=== PATIENT | male | born 1940 | race Caucasian/White ===

== ENCOUNTER 2021-01-02 10:22 | Inpatient (IN) | payer MEDICARE ==
[2021-01-02] MEDS ORDERED: KETOROLAC 15 MG/ML 1 ML VIAL IVP STA (10:54)
[2021-01-02] MEDS ORDERED: SODIUM CHLORIDE 0.9% 500 ML 500 ML IV STA (10:54)
--- NOTE | 2021-01-02 11:04 | ED ---
Abdominal Pain HPI - General Chief Complaint: Abdominal Pain Stated Complaint: Abdominal pain Time Seen by Provider: 01/02/21 10:36 Source: patient Mode of arrival: ambulatory Limitations: no limitations - History of Present Illness Initial Comments: Patient is an 80-year-old male, with history of heart disease, presenting to the emergency Department with complaints of abdominal pain for the last 4 days. Patient states he thinks it started after he ate a greasy better on Wednesday. Patient states ever since then he's been having right upper quadrant, epigastric discomfort. It has been coming and going but has not ever gone completely away. He states is very sharp at times. He states this morning it woke him up from his sleep. He describes the pain currently is an 8/10, and the right upper quadrant epigastric area. He states sometimes he does have some radiation further down into his abdomen but mostly been in the right upper quadrant. He denies history of any abdominal surgeries. He admits to some mild nausea the first day but none since then, no vomiting or diarrhea. He does have darker stools secondary to iron supplements, he's been having regular bowel movements. No dysuria. He denies any chest pain or shortness of breath, no coughing. He denies any fevers. He has no further complaints at this time. Upon arrival to the ER, his vitals are stable. - Related Data Home Medications Medication Instructions Recorded Confirmed Aspirin EC [Ecotrin Low Dose] 81 mg PO DAILY 01/02/21 01/02/21 Atorvastatin Calcium [Lipitor] 80 mg PO HS 01/02/21 01/02/21 Ferrous Sulfate [Feosol] 325 mg PO DAILY 01/02/21 01/02/21 Metoprolol Tartrate [Lopressor] 12.5 mg PO BID 01/02/21 01/02/21 Multivitamins, Thera [Multivitamin 1 tab PO DAILY 01/02/21 01/02/21 (formulary)] Pantoprazole Sodium [Protonix] 40 mg PO BID@1000,2200 01/02/21 01/02/21 Allergies Allergy/AdvReac Type Severity Reaction Status Date / Time No Known Allergies Allergy Verified 01/02/21 11:03 Review of Systems ROS Statement: Those systems with pertinent positive or pertinent negative responses have been documented in the HPI. ROS Other: All systems not noted in ROS Statement are negative. Past Medical History Past Medical History: Myocardial Infarction ([place]) History of Any Multi-Drug Resistant Organisms: None Reported Past Surgical History: Back Surgery, Coronary Bypass/CABG, Heart Catheterization, Heart Catheterization With Stent Past Psychological History: No Psychological Hx Reported Smoking Status: Former smoker Past Alcohol Use History: None Reported Past Drug Use History: None Reported - Past Family History Father Additional Family Medical History / Comment(s): Father by drowning when pt was 3 yrs old. Mother Family Medical History: Cancer Additional Family Medical History / Comment(s): Mother lived into her 90s. Type of cancer was "female". General Exam - General Exam Comments Initial Comments: GENERAL: Patient is well-developed and well-nourished. Patient is nontoxic and in no acute distress. HEAD: Atraumatic, normocephalic. EYES: Pupils equal round and reactive to light, extraocular movements intact, sclera anicteric, conjunctiva are normal. Eyelids were unremarkable. ENT: TMs normal, nares patent, oropharynx clear without exudates. Moist mucous membranes. NECK: Normal range of motion, supple without lymphadenopathy or JVD. LUNGS: Unlabored respirations. Breath sounds clear to auscultation bilaterally and equal. No wheezes rales or rhonchi. HEART: Regular rate and rhythm without murmurs, rubs or gallops. ABDOMEN: Soft, tender to palpation in the right upper quadrant, epigastric area, hypoactive bowel sounds. Positive guarding of the right upper quadrant, No masses appreciated. : Deferred MUSCULOSKELETAL: Normal extremities with adequate strength and normal range of motion, no pitting or edema. No clubbing or cyanosis. NEUROLOGICAL: Patient is alert and oriented x 3. Motor and sensory are also intact. Cranial nerves II through XII grossly intact. Symmetrical smile. Normal speech, normal gait. PSYCH: Normal mood, normal affect. SKIN: Warm, Dry, normal turgor, no rashes or lesions noted. Limitations: no limitations Course Vital Signs 01/02/21 01/02/21 01/02/21 10:25 11:59 12:29 Temperature 97.7 F 97.7 F Pulse Rate 60 61 63 Respiratory 18 18 18 Rate Blood Pressure 150/91 146/84 136/64 Blood Pressure [Left Arm] O2 Sat by Pulse 97 97 94 L Oximetry 01/02/21 01/02/21 01/02/21 13:35 15:00 17:00 Temperature 98.0 F 98.0 F Pulse Rate 63 58 L Respiratory 18 18 Rate Blood Pressure 160/84 172/76 Blood Pressure 185/94 [Left Arm] O2 Sat by Pulse 94 L 94 L 95 Oximetry Medical Decision Making - Medical Decision Making Patient is an 80-year-old male with history of heart disease, presenting with epigastric, right upper quadrant pain for the last 4 days. His vitals are stable, no fevers. No history of abdominal surgeries. Labs are stable with a normal white count, lactic acid is 1.1, urine had some blood in there but no signs of infection. I initially ordered an ultrasound of the gallbladder which showed multiple masses within the liver, recommend a CT of the abdomen and pelvis. No signs of acute cholecystitis. 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 Patient received some fluids and Toradol, she on reexamination, he has no pain. I discussed these findings with the patient. I did recommend admission for further investigation of this newfound neoplasm with metastases. Patient has seen Dr. caballero him in the past. Patient accepted by Dr. Carranza, consult Dr. Baptiste. Patient is in agreement with this plan of care. Case discussed with Dr. Junior. - Lab Data Result diagrams: 01/02/21 11:10 01/02/21 11:10 Lab Results 01/02/21 01/02/21 01/02/21 Range/Units 11:10 11:10 11:10 WBC 7.1 (3.8-10.6) k/uL RBC 4.87 (4.30-5.90) m/uL Hgb 14.6 (13.0-17.5) gm/dL Hct 42.6 (39.0-53.0) % MCV 87.6 (80.0-100.0) fL MCH 30.0 (25.0-35.0) pg MCHC 34.2 (31.0-37.0) g/dL RDW 13.8 (11.5-15.5) % Plt Count 169 (150-450) k/uL MPV 8.5 Neutrophils % 75 % Lymphocytes % 10 % Monocytes % 7 % Eosinophils % 6 % Basophils % 1 % Neutrophils # 5.3 (1.3-7.7) k/uL Lymphocytes # 0.7 L (1.0-4.8) k/uL Monocytes # 0.5 (0-1.0) k/uL Eosinophils # 0.4 (0-0.7) k/uL Basophils # 0.1 (0-0.2) k/uL PT 10.8 (9.0-12.0) sec INR 1.0 (<1.2) APTT 23.4 (22.0-30.0) sec Sodium 142 (137-145) mmol/L Potassium 4.3 (3.5-5.1) mmol/L Chloride 109 H (98-107) mmol/L Carbon Dioxide 25 (22-30) mmol/L Anion Gap 8 mmol/L BUN 18 (9-20) mg/dL Creatinine 1.01 (0.66-1.25) mg/dL Est GFR (CKD-EPI)AfAm 81 (>60 ml/min/1.73 sqM) Est GFR (CKD-EPI)NonAf 70 (>60 ml/min/1.73 sqM) Glucose 108 H (74-99) mg/dL Plasma Lactic Acid Mateo (0.7-2.0) mmol/L Calcium 9.5 (8.4-10.2) mg/dL Total Bilirubin 1.4 H (0.2-1.3) mg/dL AST 33 (17-59) U/L ALT 18 (4-49) U/L Alkaline Phosphatase 127 H (38-126) U/L Total Protein 7.1 (6.3-8.2) g/dL Albumin 4.1 (3.5-5.0) g/dL Amylase 53 (30-110) U/L Lipase 89 (23-300) U/L Urine Color Urine Appearance (Clear) Urine pH (5.0-8.0) Ur Specific [place] (1.001-1.035) Urine Protein (Negative) Urine Glucose (UA) (Negative) Urine Ketones (Negative) Urine Blood (Negative) Urine Nitrite (Negative) Urine Bilirubin (Negative) Urine Urobilinogen (<2.0) mg/dL Ur Leukocyte Esterase (Negative) Urine RBC (0-5) /hpf Urine WBC (0-5) /hpf Urine Bacteria (None) /hpf Urine Mucus (None) /hpf Coronavirus (PCR) (Not Detectd) 01/02/21 01/02/21 01/02/21 Range/Units 11:10 13:11 14:15 WBC (3.8-10.6) k/uL RBC (4.30-5.90) m/uL Hgb (13.0-17.5) gm/dL Hct (39.0-53.0) % MCV (80.0-100.0) fL MCH (25.0-35.0) pg MCHC (31.0-37.0) g/dL RDW (11.5-15.5) % Plt Count (150-450) k/uL MPV Neutrophils % % Lymphocytes % % Monocytes % % Eosinophils % % Basophils % % Neutrophils # (1.3-7.7) k/uL Lymphocytes # (1.0-4.8) k/uL Monocytes # (0-1.0) k/uL Eosinophils # (0-0.7) k/uL Basophils # (0-0.2) k/uL PT (9.0-12.0) sec INR (<1.2) APTT (22.0-30.0) sec Sodium (137-145) mmol/L Potassium (3.5-5.1) mmol/L Chloride (98-107) mmol/L Carbon Dioxide (22-30) mmol/L Anion Gap mmol/L BUN (9-20) mg/dL Creatinine (0.66-1.25) mg/dL Est GFR (CKD-EPI)AfAm (>60 ml/min/1.73 sqM) Est GFR (CKD-EPI)NonAf (>60 ml/min/1.73 sqM) Glucose (74-99) mg/dL Plasma Lactic Acid Mateo 1.1 (0.7-2.0) mmol/L Calcium (8.4-10.2) mg/dL Total Bilirubin (0.2-1.3) mg/dL AST (17-59) U/L ALT (4-49) U/L Alkaline Phosphatase (38-126) U/L Total Protein (6.3-8.2) g/dL Albumin (3.5-5.0) g/dL Amylase (30-110) U/L Lipase (23-300) U/L Urine Color Yellow Urine Appearance Clear (Clear) Urine pH 5.5 (5.0-8.0) Ur Specific [place] 1.050 H (1.001-1.035) Urine Protein Trace H (Negative) Urine Glucose (UA) Negative (Negative) Urine Ketones Negative (Negative) Urine Blood Moderate H (Negative) Urine Nitrite Negative (Negative) Urine Bilirubin Negative (Negative) Urine Urobilinogen <2.0 (<2.0) mg/dL Ur Leukocyte Esterase Negative (Negative) Urine RBC 14 H (0-5) /hpf Urine WBC 2 (0-5) /hpf Urine Bacteria Rare H (None) /hpf Urine Mucus Many H (None) /hpf Coronavirus (PCR) Not Detected (Not Detectd) Disposition Clinical Impression: Esophageal neoplasm, Liver metastases, Abdominal pain Disposition: ADMITTED IP TO THIS HOSP Condition: Stable Decision Date: 01/02/21 Decision Time: 14:25
[2021-01-02 11:40] LABS: Albumin 4.1 g/dL (3.5-5.0); Calcium 9.5 mg/dL (8.4-10.2); Potassium 4.3 mmol/L (3.5-5.1); Total Bilirubin 1.4 mg/dL (0.2-1.3); Total Protein 7.1 g/dL (6.3-8.2)
[2021-01-02 11:42] LABS: Basophils # (A) 0.1 k/uL (0-0.2); Basophils % (A) 1 %; Eosinophils # (A) 0.4 k/uL (0-0.7); Eosinophils % (A) 6 %; HCT 42.6 % (39.0-53.0); HGB 14.6 gm/dL (13.0-17.5); Lymphocytes # (A) 0.7 k/uL (1.0-4.8); Lymphocytes % (A) 10 %; MCHC 34.2 g/dL (31.0-37.0); MCV 87.6 fL (80.0-100.0); Mean Platelet Volume 8.5; Monocytes # (A) 0.5 k/uL (0-1.0); Monocytes % (A) 7 %; Neutrophils # (A) 5.3 k/uL (1.3-7.7); Neutrophils % (A) 75 %; Platelet Count 169 k/uL (150-450); RBC 4.87 m/uL (4.30-5.90); RDW 13.8 % (11.5-15.5); WBC 7.1 k/uL (3.8-10.6)
--- NOTE | 2021-01-02 11:48 | US ---
EXAMINATION TYPE: US gallbladder DATE OF EXAM: 01/02/2021 COMPARISON: NONE CLINICAL HISTORY: RUQ pain x 4 days. EXAM MEASUREMENTS: Liver Length: 14.0 cm Gallbladder Wall: 0.2 cm CBD: 0.7 cm Right Kidney: 10.0 x 5.0 x 4.2 cm Pancreas: hyperechoic Liver: multiple hypoechoic round masses throughout liver with largest rt lobe mass = 1.3 x 1.8 x 1.6 cm and largest left lobe mass = 1.9 x 2.1 x 1.3cm Gallbladder: wnl Evidence for sonographic Encarnacion's sign: pain here and at midline epigastric area CBD: wnl for 8th decade Right Kidney: No hydronephrosis or masses seen IMPRESSION: 1. Multiple hypoechoic masses within the liver recommend CT scan of the abdomen and pelvis to assess for solid neoplasm.
[2021-01-02 11:51] LABS: Partial Thromboplastin Time 23.4 sec (22.0-30.0); Prothrombin Time 10.8 sec (9.0-12.0)
--- NOTE | 2021-01-02 13:06 | CT ---
EXAMINATION TYPE: CT abdomen pelvis w con DATE OF EXAM: 01/02/2021 COMPARISON: Same-day ultrasound gallbladder HISTORY: RUQ pain CT DLP: 995.9 mGycm, Automated Exposure Control for Dose Reduction was Utilized. CONTRAST: CT scan of the abdomen and pelvis is performed with oral and with IV Contrast, patient injected with 100 mL of Isovue 300. FINDINGS: LUNG BASES: Marked concentric thickening of the distal esophagus. Tiny right greater than left pleura l effusions LIVER/GB: Liver is heterogeneously hypodense with scattered hypodense lesions measuring majority unde r 1 cm in size, some between 1 and 1.5 cm. Lesion is nonspecific. PANCREAS: No significant abnormality is seen. SPLEEN: No significant abnormality is seen. ADRENALS: No significant abnormality is seen. KIDNEYS: Symmetric artery measuring uptake and excretion without hydronephrosis seen bilaterally. BOWEL: No significant abnormality is seen. PROSTATE/SEMINAL VESICLES: No gross abnormality seen. LYMPH NODES: Abnormal enlarged upper to mid abdominal lymph nodes including retroperitoneal and intra peritoneal involvement. For reference there is 2.2 x 1.5 cm lymph node posterior to the IVC on image 31. For reference there is abnormal 2.3 x 1.6 cm trinh hepatic lymph node adjacent to the portal vei n and IVC axial image 21. OSSEOUS STRUCTURES: Posterior fusion hardware and artificial disc material L3-L4 and L4-L5 levels. Sl ight grade 1 anterolisthesis L4 on L5. [id number] disc space narrowing with vacuum disc pheno nydia L5-S1 level. Moderate axial joint space loss both hips. OTHER: Moderate calcified plaque of the aorta extends into branch vessels. 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
[2021-01-02 13:54] LABS: Appearance,Urine Clear (Clear); Bacteria,Urine Rare /hpf; Bilirubin,Urine Negative (Negative); Blood,Urine Moderate (Negative); Color,Urine Yellow; Glucose,Urine (UA) Negative (Negative); Ketones,Urine Negative (Negative); Leukocyte Esterase,Urine Negative (Negative); Mucus,Urine Many /hpf; Nitrite,Urine Negative (Negative); PH, Urine 5.5 (5.0-8.0); Protein,Urine Trace (Negative); RBC,Urine 14 /hpf (0-5); Urobilinogen,Urine <2.0 mg/dL (<2.0); WBC,Urine 2 /hpf (0-5)
[2021-01-02] MEDS ORDERED: KETOROLAC 15 MG/ML 1 ML VIAL IVP PRN (14:22)
[2021-01-02] MEDS ORDERED: IBUPROFEN 400 MG TAB PO PRN (14:22)
[2021-01-02] MEDS ORDERED: ONDANSETRON 4 MG/2 ML VIAL IVP PRN (14:22)
[2021-01-02] MEDS ORDERED: NALOXONE 0.4 MG/ML 1 ML VIAL IV PRN (14:22)
[2021-01-02] MEDS: SODIUM CHLORIDE 0.9% 1,000 ML IV SCH (17:41)
[2021-01-02] MEDS: HEPARIN SODIUM,PORCINE/PF 5,000 UNIT/0.5 ML SYRINGE SQ SCH (17:41)
[2021-01-02] MEDS: amLODIPine 5 MG TAB PO SCH (17:41)
[2021-01-02] MEDS: PANTOPRAZOLE 40 MG TABLET PO SCH (21:19)
[2021-01-02] MEDS: METOPROLOL TARTRATE 12.5 MG TAB PO SCH (21:19)
[2021-01-02] MEDS: ATORVASTATIN 80 MG TAB PO SCH (21:19)
--- NOTE | 2021-01-02 23:46 | P.HPIM ---
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 Patient has been having symptoms of the past 4 days. Sharp pains and woke of from sleep this morning. 8 out of 10 in severity. Associate with mild nausea. No signs of vomiting. No hematemesis or melena. Denied any weight loss. Patient states that he gets early satiety. No fever no chills. No cough or sputum production. No chest pain or shortness of breath. No diarrhea. Ultrasound gallbladder showed multiple hypoechoic masses within the liver recommend CT scan of the abdomen pelvis to assess for solid neoplasm. 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 Lab data showed WBC 7.1 hemoglobin 14.6 and platelets 169 Sodium 142 potassium 4.3 chloride 109 lactic acid 1.1 bilirubin 1.4 alk phos 127 AST 33 ALT 18 and lipase 89 UA negative for infection and COVID-19 PCR not detected Review of Systems Constitutional: Patient denies any fever or chills . Denied weight loss. Patient does have early satiety. Abdomen: Patient does have abdominal pain associate with mild nausea. No vomiting. No diarrhea.. Cardiovascular: Patient denies any chest pain or short of breath no palpitations. Respiratory: patient denied any cough or sputum production. No shortness of breath Neurologic: Patient denied any numbness or tingling headache. Musculoskeletal: Patient denies any complaints of joint swelling or deformity. Skin: Negative Psychiatric: Negative Endocrine: No heat or cold intolerance. No recent weight gain. Genitourinary: No dysuria or hematuria. All other 14 point ROS negative except the above Past Medical History Past Medical History: Myocardial Infarction ([place]) History of Any Multi-Drug Resistant Organisms: None Reported Past Surgical History: Back Surgery, Coronary Bypass/CABG, Heart Catheterizatio n, Heart Catheterization With Stent Past Psychological History: No Psychological Hx Reported Smoking Status: Former smoker Past Alcohol Use History: None Reported Past Drug Use History: None Reported - Past Family History Father Additional Family Medical History / Comment(s): Father by drowning when pt was 3 yrs old. Mother Family Medical History: Cancer Additional Family Medical History / Comment(s): Mother lived into her 90s. Type of cancer was "female". Medications and Allergies Home Medications Medication Instructions Recorded Confirmed Type Aspirin EC [Ecotrin Low Dose] 81 mg PO DAILY 01/02/21 01/02/21 History Atorvastatin Calcium [Lipitor] 80 mg PO HS 01/02/21 01/02/21 History Ferrous Sulfate [Feosol] 325 mg PO DAILY 01/02/21 01/02/21 History Metoprolol Tartrate [Lopressor] 12.5 mg PO BID 01/02/21 01/02/21 History Multivitamins, Thera [Multivitamin 1 tab PO DAILY 01/02/21 01/02/21 History (formulary)] Pantoprazole Sodium [Protonix] 40 mg PO BID@1000,2200 01/02/21 01/02/21 History Allergies Allergy/AdvReac Type Severity Reaction Status Date / Time No Known Allergies Allergy Verified 01/02/21 11:03 Physical Exam Vitals: Vital Signs Temp Pulse Resp BP Pulse Ox 01/02/21 15:00 98.0 F 58 L 18 172/76 94 L 01/02/21 13:35 63 18 160/84 94 L 01/02/21 12:29 63 18 136/64 94 L 01/02/21 11:59 97.7 F 61 18 146/84 97 01/02/21 10:25 97.7 F 60 18 150/91 97 Intake and Output 01/02/21 01/02/21 01/02/21 06:59 14:59 22:59 Other: Weight 81.647 kg PHYSICAL EXAMINATION: Patient is lying in the bed comfortably, no acute distress, awake alert and oriented.. HEENT: Normocephalic. Neck is supple. Pupils reactive. Nostrils clear. Oral ca vity is moist. Ears reveal no drainage. Neck reveals no JVD, carotid bruits, or thyromegaly. CHEST EXAMINATION: Trachea is central. Symmetrical expansion. Lung walter clear to auscultation and percussion. CARDIAC: Normal S1, S2 with no gallops. No murmurs ABDOMEN: Soft. Bowel sounds normal. No organomegaly. No abdominal bruits. Extremities: reveal no edema. No clubbing or cyanosis Neurologically awake, alert, oriented x3 with well-coordinated movements. No focal deficits noted Skin: No rash or skin lesions. Psychiatric: Coperative. Nonsuicidal Musculoskeletal: No joint swelling or deformity. Normal range of motion. Results CBC & Chem 7: 01/02/21 11:10 01/02/21 11:10 Labs: Abnormal Lab Results - Last 24 Hours (Table) 01/02/21 01/02/21 01/02/21 Range/Units 11:10 11:10 13:11 Lymphocytes # 0.7 L (1.0-4.8) k/uL Chloride 109 H (98-107) mmol/L Glucose 108 H (74-99) mg/dL Total Bilirubin 1.4 H (0.2-1.3) mg/dL Alkaline Phosphatase 127 H (38-126) U/L Ur Specific [place] 1.050 H (1.001-1.035) Urine Protein Trace H (Negative) Urine Blood Moderate H (Negative) Urine RBC 14 H (0-5) /hpf Urine Bacteria Rare H (None) /hpf Urine Mucus Many H (None) /hpf Thrombosis Risk Factor Assmnt - DVT/VTE Prophylaxis DVT/VTE Prophylaxis: Pharmacologic Prophylaxis ordered Assessment and Plan Assessment: Epigastric and right upper quadrant pain likely due to neoplastic process. 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 History of NH Coronary disease with CABG and stent placement Previous history of smoking Mild cognitive impairment DVT prophylaxis with heparin subcu Plan: Patient will be continued pain management with morphine and Toradol as needed. Continue with PPI and symptomatic management for nausea. GI was consulted for possible biopsy. Continue with home medications and follow-up closely. Discussed with the patient and his at bedside in detail. Further recommendations based on the clinical course. Time with Patient: Greater than 30
[2021-01-03] MEDS: PANTOPRAZOLE 40 MG TABLET PO SCH ×2 (08:06→20:34)
[2021-01-03] MEDS: HEPARIN SODIUM,PORCINE/PF 5,000 UNIT/0.5 ML SYRINGE SQ SCH ×3 (08:07→17:25)
[2021-01-03] MEDS: METOPROLOL TARTRATE 12.5 MG TAB PO SCH ×2 (08:07→20:34)
[2021-01-03] MEDS: amLODIPine 5 MG TAB PO SCH (08:07)
[2021-01-03] MEDS: MULTIVITAMINS, THERA 1 EACH TAB PO SCH (08:07)
[2021-01-03] MEDS: SODIUM CHLORIDE 0.9% 1,000 ML IV SCH (08:12)
--- NOTE | 2021-01-03 10:57 | P.CONS ---
History of Present Illness - Reason for Consult Consult date: 01/03/[address], suspected esophageal neoplasm Requesting physician: Zander Carranza - Chief Complaint Abdominal pain - History of Present Illness This is a pleasant 80-year-old white male with a past medical history including coronary artery disease status post CABG and cardiac stents who presented today to the emergency department with complaints of abdominal pain that is mostly epigastric but radiates across his upper abdomen. States he's had the pain on and off for the last year, however it's been getting worse over the past few days. First day had some associated nausea, however no vomiting. He has not had any nausea or vomiting since then. He denies any hematemesis or coffee- ground emesis. He states he has black stools, but he thinks it's related to his oral iron. He is denying any use of NSAIDs, no history of peptic ulcer disease, but does admit to acid reflux and currently takes Protonix at home. He has a prior history of smoking, quit in 1997. No history of alcohol abuse. States he see had an upper endoscopy years ago, however unsure of when and what they found. He states he had a colonoscopy 4-5 years ago unsure who performed and states he possibly had polyps. He denies any pain with swallowing or food getting stuck. As part of the workup in the emergency department he had ultrasound of the abdomen which showed multiple hypoechoic rounded masses throughout the liver with recommendation for CT of the abdomen and pelvis to assess for neoplasm. Gallbladder was within normal limits as well as the common bile duct. CT of the abdomen and pelvis showed marked concentric thickening of the distal esophagus. Tiny right greater than left pleural effusions. Liver is heterogeneously hypodense with scattered hypodense lesions measuring majority under 1 cm in size, some between 1 and 1-1/2 cm. Lesion is nonspecific. Abnormal enlarged upper to mid abdominal lymph nodes including retroperitoneal and intraperitoneal involvement. 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 Review of Systems REVIEW OF SYSTEMS: CARDIOPULMONARY: No chest pain or shortness of breath. Gastrointestinal: Epigastric pain, abdominal pain. No nausea or vomiting. No hematemesis, coffee-ground emesis. No rectal bleeding, or melena. GENITOURINARY: No dysuria or hematuria. MUSCULOSKELETAL: Reports normal range of motion., Joint pain. SKIN: No rashes. No jaundice. ENDOCRINE: Unremarkable. PSYCHIATRIC: Unremarkable. NEUROLOGY: No change in mental status. Denies dizziness, headache. ENT: Vision unremarkable. CONSTITUTIONAL: No recent weight loss. No fever, chills, night sweats. Past Medical History Past Medical History: Myocardial Infarction ([place]) Additional Past Medical History / Comment(s): Lower GI bleed/elias's esophagus with cautery, ulcerative colitis, hypotension, occasional lower back pain, nephrolithiasis/surgically removed. Last Myocardial Infarction Date:: 1997 History of Any Multi-Drug Resistant Organisms: None Reported Past Surgical History: Back Surgery, Coronary Bypass/CABG, Heart Catheterization, Heart Catheterization With Stent Additional Past Surgical History / Comment(s): 1997 CABG 4 vessel, PCI with stent 2019, EGD and cauterized Elias's esophagus bleed, colonoscoy, lithotripsy, L leg varicose vein surgery, 2 lower back fusions Past Anesthesia/Blood Transfusion Reactions: No Reported Reaction Additional Past Anesthesia/Blood Transfusion Reaction / Comm: Pt has received blood in past without reaction. Date of Last Stent Placement:: 2018 Past Psychological History: No Psychological Hx Reported Smoking Status: Former smoker Past Alcohol Use History: None Reported Past Drug Use History: None Reported - Past Family History Father Additional Family Medical History / Comment(s): Father by drowning when pt was 3 yrs old. Mother Family Medical History: Cancer Additional Family Medical History / Comment(s): Mother lived into her 90s. Type of cancer was "female". Medications and Allergies Home Medications Medication Instructions Recorded Confirmed Type Aspirin EC [Ecotrin Low Dose] 81 mg PO DAILY 01/02/21 01/02/21 History Atorvastatin Calcium [Lipitor] 80 mg PO HS 01/02/21 01/02/21 History Ferrous Sulfate [Feosol] 325 mg PO DAILY 01/02/21 01/02/21 History Metoprolol Tartrate [Lopressor] 12.5 mg PO BID 01/02/21 01/02/21 History Multivitamins, Thera [Multivitamin 1 tab PO DAILY 01/02/21 01/02/21 History (formulary)] Pantoprazole Sodium [Protonix] 40 mg PO BID@1000,2200 01/02/21 01/02/21 History Allergies Allergy/AdvReac Type Severity Reaction Status Date / Time No Known Allergies Allergy Verified 01/02/21 11:03 Physical Exam Vitals: Vital Signs Temp Pulse Pulse Resp BP BP BP 01/03/21 05:00 97.8 F 64 20 160/72 01/02/21 21:42 164/72 01/02/21 20:10 98.1 F 68 20 180/79 01/02/21 17:00 98.0 F 185/94 01/02/21 15:00 98.0 F 58 L 18 172/76 01/02/21 13:35 63 18 160/84 01/02/21 12:29 63 18 136/64 01/02/21 11:59 97.7 F 61 18 146/84 01/02/21 10:25 97.7 F 60 18 150/91 Pulse Ox 01/03/21 05:00 94 L 01/02/21 21:42 01/02/21 20:10 94 L 01/02/21 17:00 95 01/02/21 15:00 94 L 01/02/21 13:35 94 L 01/02/21 12:29 94 L 01/02/21 11:59 97 01/02/21 10:25 97 Intake and Output 01/02/21 01/03/21 01/03/21 22:59 06:59 14:59 Intake Total 480 0 Balance 480 0 Intake: Oral 480 0 Other: # Voids 2 Weight 81.647 kg General appearance: The patient is alert, oriented, appears in no acute distress. HET: Head is normocephalic and atraumatic. Pupils are equal and reactive. Oropharynx is clear without lesions. Neck: Supple without lymphadenopathy. Trachea midline. Heart: S1 S2. Regular rate and rhythm. Lungs: Clear to auscultation. Abdomen: Soft, nontender, nondistended with bowel sounds. Guarding or rigidity. Extremities: Normal skin color and turgor. No pedal edema. Neurological: No focal deficits. Alert and orientated x3. Results CBC & Chem 7: 01/02/21 11:10 01/02/21 11:10 Labs: Abnormal Lab Results - Last 24 Hours (Table) 01/02/21 01/02/21 01/02/21 Range/Units 11:10 11:10 13:11 Lymphocytes # 0.7 L (1.0-4.8) k/uL Chloride 109 H (98-107) mmol/L Glucose 108 H (74-99) mg/dL Total Bilirubin 1.4 H (0.2-1.3) mg/dL Alkaline Phosphatase 127 H (38-126) U/L Ur Specific [place] 1.050 H (1.001-1.035) Urine Protein Trace H (Negative) Urine Blood Moderate H (Negative) Urine RBC 14 H (0-5) /hpf Urine Bacteria Rare H (None) /hpf Urine Mucus Many H (None) /hpf CT scan - abdomen: report reviewed (Liver is heterogeneously hypodense with scattered hypodense lesions measuring majority under 1 cm in size, some between 1 and 1-1/2 cm. Lesion is nonspecific. Abnormal large upper to mid abdominal lymph nodes including retroperitoneal and intraperitoneal involvement. ) Assessment and Plan (1) Abdominal pain Narrative/Plan: This is an 80-year-old male patient who came to the emergency department with complaints of new onset of abdominal pain mostly in the epigastric region, no associated nausea or vomiting, no associated difficulty swallowing or pain with swallowing. He states it began intermittently one year ago, with increased pain approximately 4 days ago. His last colonoscopy he states was 4-5 years ago, he does not know any specifics. States he does have a history of acid reflux and had an EGD many years ago but unsure of the findings. He currently takes Protonix for his acid reflux. As part of his workup in the emergency department ultrasound of the abdomen was performed showing multiple hypo-collect masses within the liver recommend computed tomography scan of the abdomen and pelvis to assess for solid neoplasm. Bladder within normal limits, common bile duct within normal limits at 0.7 cm. Further evaluation was done with a CT of the abdomen which showed marked concentric thickening of the distal esophagus. Liver is heterogeneously hypodense with scattered hypodense lesions measuring majority under 1 cm in size, some between 1 and 1-1/2 cm. Lesion is nonspeci fic. 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 Plan is for upper endoscopy with biopsies tomorrow to evaluate further, cannot rule out esophagitis or neoplasm at this time. Current Visit: Yes Status: Acute Code(s): R10.9 - UNSPECIFIED ABDOMINAL PAIN SNOMED Code(s): 44951865 Plan: 1. Protonix 40 mg twice a day 2. Regular diet 3. Nothing by mouth after midnight 4. Plan for upper endoscopy tomorrow for further evaluation 5. Consult oncology Thank you for this consultation, we will continue to follow Dr. Dottie Baptiste I agree with the dictator's note, documented as a scribe by Lena March.
[2021-01-03 13:16] VITALS: BMI 25.8
[2021-01-03] MEDS: ATORVASTATIN 80 MG TAB PO SCH (20:34)
[2021-01-03 21:05] VITALS: RESP 16
--- NOTE | 2021-01-03 22:07 | P.CONS ---
History of Present Illness - Reason for Consult Consult date: 01/03/21 Suspected Esophageal Carcinoma Requesting physician: Lena De Oliveira - History of Present Illness Mr Carvajal is a 80-year-old white male who has a past medical history of coronary artery disease status post CABG and cardiac stents. He presented er with complaints of abdominal pain and epigastric . Stating it has gotten worse over the past few days. Ultrasound of the abdomen which showed multiple hypoechoic rounded masses throughout the liver with recommendation for CT of the abdomen and pelvis to assess for neoplasm. CT of the abdomen and pelvis showed marked concentric thickening of the distal esophagus. Tiny right greater than left pleural effusions. Liver is heterogeneously hypodense with scattered hypodense lesions measuring majority under 1 cm in size, some between 1 and 1-1/2 cm. Lesion is nonspecific. Abnormal enlarged upper to mid abdominal lymph nodes including retroperitoneal and intraperitoneal involvement. 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 Because of these findings we have been asked to further evaluate. A scope for biopsy planned Review of Systems All systems: negative Constitutional: Reports as per HPI Past Medical History Past Medical History: Myocardial Infarction ([place]) Additional Past Medical History / Comment(s): Lower GI bleed/elias's esophagus with cautery, ulcerative colitis, hypotension, occasional lower back pain, nephrolithiasis/surgically removed. Last Myocardial Infarction Date:: 1997 History of Any Multi-Drug Resistant Organisms: None Reported Past Surgical History: Back Surgery, Coronary Bypass/CABG, Heart Catheterizati on, Heart Catheterization With Stent Additional Past Surgical History / Comment(s): 1997 CABG 4 vessel, PCI with stent 2018, EGD and cauterized Elias's esophagus bleed, colonoscoy, lithotripsy, L leg varicose vein surgery, 2 lower back fusions Past Anesthesia/Blood Transfusion Reactions: No Reported Reaction Additional Past Anesthesia/Blood Transfusion Reaction / Comm: Pt has received blood in past without reaction. Date of Last Stent Placement:: 2018 Past Psychological History: No Psychological Hx Reported Smoking Status: Former smoker Past Alcohol Use History: None Reported Past Drug Use History: None Reported - Past Family History Father Additional Family Medical History / Comment(s): Father by drowning when pt was 3 yrs old. Mother Family Medical History: Cancer Additional Family Medical History / Comment(s): Mother lived into her 90s. Type of cancer was "female". Medications and Allergies Home Medications Medication Instructions Recorded Confirmed Type Aspirin EC [Ecotrin Low Dose] 81 mg PO DAILY 01/02/21 01/02/21 History Atorvastatin Calcium [Lipitor] 80 mg PO HS 01/02/21 01/02/21 History Ferrous Sulfate [Feosol] 325 mg PO DAILY 01/02/21 01/02/21 History Metoprolol Tartrate [Lopressor] 12.5 mg PO BID 01/02/21 01/02/21 History Multivitamins, Thera [Multivitamin 1 tab PO DAILY 01/02/21 01/02/21 History (formulary)] Pantoprazole Sodium [Protonix] 40 mg PO BID@1000,2200 01/02/21 01/02/21 History Allergies Allergy/AdvReac Type Severity Reaction Status Date / Time No Known Allergies Allergy Verified 01/02/21 11:03 Physical Exam Vitals: Vital Signs Temp Pulse Resp BP Pulse Ox 01/03/21 11:47 98.3 F 86 157/84 96 01/03/21 05:00 97.8 F 64 20 160/72 94 L 01/02/21 21:42 164/72 01/02/21 20:10 98.1 F 68 20 180/79 94 L Intake and Output 01/03/21 01/03/21 01/03/21 06:59 14:59 22:59 Intake Total 0 Balance 0 Intake: Oral 0 Other: Voiding Method Toilet Urinal # Voids 2 2 Weight 81.647 kg - Constitutional General appearance: cooperative, no acute distress - EENT Eyes: EOMI, PERRLA ENT: hard of hearing, NA/AT - Neck Neck: normal ROM - Respiratory Respiratory: bilateral: CTA - Gastrointestinal General gastrointestinal: soft - Integumentary Integumentary: pale - Neurologic Neurologic: CNII-XII intact - Musculoskeletal Musculoskeletal: generalized weakness - Psychiatric Psychiatric: A&O x's 3 Results CBC & Chem 7: 01/02/21 11:10 01/02/21 11:10 CT scan - abdomen: report reviewed CT scan - chest: report reviewed CT scan - pelvis: report reviewed Assessment and Plan (1) Abdominal pain Current Visit: Yes Status: Acute Code(s): R10.9 - UNSPECIFIED ABDOMINAL PAIN SNOMED Code(s): 87427562 (2) Esophageal neoplasm Current Visit: Yes Status: Acute Code(s): D49.0 - NEOPLASM OF UNSPECIFIED BEHAVIOR OF DIGESTIVE SYSTEM SNOMED Code(s): 067884934 (3) Liver metastases Current Visit: Yes Status: Acute Code(s): C78.7 - SECONDARY MALIG NEOPLASM OF LIVER AND INTRAHEPATIC BILE DUCT SNOMED Code(s): 88948349 Plan: CT scan revealed: thickening of the distal esophagus. Liver is heterogeneously hypodense with scattered hypodense lesions measuring majority under 1 cm in size, some between 1 and 1-1/2 cm. Lesion is nonspecific. 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 Plan: GI to perform scope Await path for further recs. Physician Attest: I have completed the full history and physical and agree with above dictation, dictated as a scribe.
--- NOTE | 2021-01-03 23:47 | P.PN ---
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 Patient has been having symptoms of the past 4 days. Sharp pains and woke of from sleep this morning. 8 out of 10 in severity. Associate with mild nausea. No signs of vomiting. No hematemesis or melena. Denied any weight loss. Patient states that he gets early satiety. No fever no chills. No cough or sputum production. No chest pain or shortness of breath. No diarrhea. Ultrasound gallbladder showed multiple hypoechoic masses within the liver recommend CT scan of the abdomen pelvis to assess for solid neoplasm. 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 Lab data showed WBC 7.1 hemoglobin 14.6 and platelets 169 Sodium 142 potassium 4.3 chloride 109 lactic acid 1.1 bilirubin 1.4 alk phos 127 AST 33 ALT 18 and lipase 89 UA negative for infection and COVID-19 PCR not detected 01/03/2021 Patient is currently resting in the bed comfortably. Awake alert and oriented. Underlying cognitive impairment. Discussed with the patient and his at bedside. GI is planning for EGD and biopsy tomorrow. Patient is n.p.o. after midnight. No complaints of chest pain or shortness of breath. Abdominal pain is controlled with medications. No nausea or vomiting. No fever no chills. Current medications reviewed. Objective - Vital Signs Vital signs: Vital Signs Temp 98.4 F 01/03/21 19:35 Pulse 79 01/03/21 19:35 Resp 16 01/03/21 19:35 BP 142/68 01/03/21 19:35 Pulse Ox 93 L 01/03/21 19:35 Intake & Output 01/03/21 01/03/21 01/04/21 06:59 18:59 06:59 Intake Total 0 Balance 0 Weight 81.647 kg Intake: Oral 0 Other: Voiding Method Toilet Urinal # Voids 2 2 - Exam PHYSICAL EXAMINATION: Patient is lying in the bed comfortably, no acute distress, awake alert and oriented.. HEENT: Normocephalic. Neck is supple. Pupils reactive. Nostrils clear. Oral cavity is moist. Ears reveal no drainage. Neck reveals no JVD, carotid bruits, or thyromegaly. CHEST EXAMINATION: Trachea is central. Symmetrical expansion. Lung walter clear to auscultation and percussion. CARDIAC: Normal S1, S2 with no gallops. No murmurs ABDOMEN: Soft. Bowel sounds normal. No organomegaly. No abdominal bruits. Extremities: reveal no edema. No clubbing or cyanosis Neurologically awake, alert, oriented x3 with well-coordinated movements. No focal deficits noted Skin: No rash or skin lesions. Psychiatric: Coperative. Nonsuicidal Musculoskeletal: No joint swelling or deformity. Normal range of motion. - Labs CBC & Chem 7: 01/02/21 11:10 01/02/21 11:10 Assessment and Plan Assessment: Epigastric and right upper quadrant pain likely due to neoplastic process. 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 History of [place] Coronary disease with CABG and stent placement Previous history of smoking Mild cognitive impairment DVT prophylaxis with heparin subcu Plan: Patient will be continued pain management with morphine and Toradol as needed. Continue with PPI and symptomatic management for nausea. GI is planning for EGD tomorrow.. Continue with home medications and follow-up closely. Discussed with the patient and his at bedside in detail. Further recommendations based on the clinical course. Time with Patient: Greater than 30
[2021-01-04] MEDS: HEPARIN SODIUM,PORCINE/PF 5,000 UNIT/0.5 ML SYRINGE SQ SCH ×2 (00:39→07:59)
[2021-01-04] MEDS: SODIUM CHLORIDE 0.9% 1,000 ML IV SCH (00:40)
[2021-01-04 05:36] LABS: Basophils # (A) 0.1 k/uL (0-0.2); Basophils % (A) 1 %; Eosinophils # (A) 0.4 k/uL (0-0.7); Eosinophils % (A) 6 %; HCT 39.5 % (39.0-53.0); HGB 13.7 gm/dL (13.0-17.5); Lymphocytes # (A) 0.6 k/uL (1.0-4.8); Lymphocytes % (A) 9 %; MCH 30.3 pg (25.0-35.0); MCHC 34.6 g/dL (31.0-37.0); MCV 87.7 fL (80.0-100.0); Mean Platelet Volume 8.2; Monocytes # (A) 0.4 k/uL (0-1.0); Monocytes % (A) 6 %; Neutrophils # (A) 5.3 k/uL (1.3-7.7); Neutrophils % (A) 76 %; Platelet Count 158 k/uL (150-450); RBC 4.51 m/uL (4.30-5.90); RDW 13.6 % (11.5-15.5); WBC 6.9 k/uL (3.8-10.6)
[2021-01-04] MEDS ORDERED: PROPOFOL 10 MG/ML 20 ML VIAL IV ONE (07:28)
[2021-01-04] MEDS ORDERED: IV FLUID CONTINUATION 1,000 ML IV ONE (07:29)
--- NOTE | 2021-01-04 07:39 | P.PCN ---
Date of Procedure: 01/04/21 Procedure(s) Performed: BRIEF HISTORY: Patient is a 80-year-old, pleasant, white male admitted hospital with epigastric pain. CAT scan revealed distal esophageal mucosal thickening and multiple liver lesions suspicious for metastasis. His and scheduled for an upper endoscopy to evaluate further. PROCEDURE PERFORMED: Esophagogastroduodenoscopy and biopsy. PREOPERATIVE DIAGNOSIS: Epigastric pain for 1 month duration and abnormal CAT scan showing thickening esophagus with liver lesions. IV sedation per anesthesia. PROCEDURE: After informed consent was obtained, the patient was brought into the endoscopy unit. IV sedation was administered by Anesthesia under continuous monitoring. Initially the Olympus GIF-140 video endoscope was inserted into the mouth. Esophagus intubated without any difficulty. It was gradually advanced into the stomach and duodenum and carefully examined. The bulb and the second part of the duodenum appeared normal. The scope at this time was withdrawn to the stomach, adequately insufflated with air, and upon careful examination, mucosa of the antrum, body, cardia and the fundus appeared normal. The scope was then withdrawn into the esophagus. Moderate size hiatal hernia noted. The GE junction was located at 39 cm from the incisors. There was distal esophageal ulcerated mass identified extending from 34-39 cm from the incisors with mild luminal narrowing but the scope could be advanced into the stomach without any difficulty. Multiple biopsies were done from the mass. Proximal to the max there was a long segment of Perez's esophagus extending from 30-39 cm from the incisors. The rest of esophagus appeared normal and the patient tolerated the procedure well. IMPRESSION: 1. Distal esophageal circumferential mass extending from 34-39 cm from the incisors with some luminal narrowing, status post multiple biopsies to evaluate for neoplasm. 2. Perez's esophagus extending from 30-39 cm from the incisors 3. Moderate hiatal hernia. RECOMMENDATIONS: The findings of this examination were discussed with the patient as well as his family. At this time will await biopsy results. Start him on a full liquid diet..
[2021-01-04] MEDS: METOPROLOL TARTRATE 12.5 MG TAB PO SCH (07:59)
[2021-01-04] MEDS: PANTOPRAZOLE 40 MG TABLET PO SCH (07:59)
[2021-01-04] MEDS: MULTIVITAMINS, THERA 1 EACH TAB PO SCH (07:59)
[2021-01-04] MEDS: amLODIPine 5 MG TAB PO SCH (07:59)
[2021-01-04 10:31] LABS: INR 1.06 (0.90-1.11); Prothrombin Time 11.5 sec (9.9-11.9)
[2021-01-04 11:58] VITALS: BP 153/75; PULSE 61; TEMP 98.5
== END 2021-01-04 16:36 | disposition home or self-care (01) | DRG 375 ==
LOC: EC 10:22 → 5NMEDONC 14:39
PROVIDERS: ADMIT Internal Medicine; ATTEND Internal Medicine
PROC: 0DB38ZX Excision of Lower Esophagus, Via Natural or Artificial Opening Endoscopic, Diagnostic (ICD-10-PCS; principal; 2021-01-04 07:30)
DX: C15.5 Malignant neoplasm of lower third of esophagus (principal); C78.7 Secondary malignant neoplasm of liver and intrahepatic bile duct; I25.10 Atherosclerotic heart disease of native coronary artery without angina pectoris; Z20.822 Contact with and (suspected) exposure to COVID-19; Z95.1 Presence of aortocoronary bypass graft; I25.2 Old myocardial infarction; K22.70 Barrett's esophagus without dysplasia; Z87.891 Personal history of nicotine dependence; R68.81 Early satiety; Z79.82 Long term (current) use of aspirin; Z79.899 Other long term (current) drug therapy; G31.84 Mild cognitive impairment of uncertain or unknown etiology; Z95.5 Presence of coronary angioplasty implant and graft; K44.9 Diaphragmatic hernia without obstruction or gangrene; Z87.442 Personal history of urinary calculi; K21.9 Gastro-esophageal reflux disease without esophagitis
CPT/HCPCS: 36415; 43239; 74177; 76705; 80053; 81001; 82150; 83605; 83690; 85025; 85610; 85730; 87635; 88305; 88341; 88342; 96361; 96374; 99285

== ENCOUNTER 2021-01-15 12:31 | Inpatient (IN) | payer MEDICARE ==
[2021-01-15] MEDS ORDERED: HYDROmorphone 0.5 MG/0.5 ML SYRINGE IVP STA (12:48)
--- NOTE | 2021-01-15 12:53 | ED ---
General Adult HPI - General Chief complaint: Shortness of Breath Stated complaint: SOB Time Seen by Provider: 01/15/21 12:35 Source: patient, RN notes reviewed, old records reviewed Mode of arrival: ambulatory Limitations: no limitations - History of Present Illness Initial comments: This is an 80-year-old male who presents emergency Department with a past medical history significant for metastatic esophageal cancer. Patient states ever since he left the hospital on the . Been short of breath and he continues to have epigastric abdominal pain as well as some right upper quadrant abdominal pain. Patient states she's had no fever chills or cough however his breathing is getting worse. Patient denies any chest pain or palpitations. Patient denies any back pain. Patient denies any lightheadedness or dizziness. Patient denies any headache patient denies any weakness or numbness. Patient denies any extremity swelling or calf tenderness. - Related Data Home Medications Medication Instructions Recorded Confirmed Aspirin EC [Ecotrin Low Dose] 81 mg PO DAILY 01/02/21 01/15/21 Atorvastatin Calcium [Lipitor] 80 mg PO HS 01/02/21 01/15/21 Ferrous Sulfate [Iron (65 MG 325 mg PO DAILY 01/02/21 01/15/21 Elemental)] Metoprolol Tartrate [Lopressor] 12.5 mg PO BID 01/02/21 01/15/21 Multivitamins, Thera [Multivitamin 1 tab PO DAILY 01/02/21 01/15/21 (formulary)] Pantoprazole Sodium [Protonix] 40 mg PO BID@1000,2200 01/02/21 01/15/21 Allergies Allergy/AdvReac Type Severity Reaction Status Date / Time No Known Allergies Allergy Verified 01/15/21 14:15 Review of Systems ROS Statement: Those systems with pertinent positive or pertinent negative responses have been documented in the HPI. ROS Other: All systems not noted in ROS Statement are negative. Past Medical History Past Medical History: Cancer, Myocardial Infarction ([place]) Additional Past Medical History / Comment(s): Lower GI bleed/elias's esophagus with cautery, ulcerative colitis, hypotension, occasional lower back pain, nephrolithiasis/surgically removed. Last Myocardial Infarction Date:: 1997 History of Any Multi-Drug Resistant Organisms: None Reported Past Surgical History: Back Surgery, Coronary Bypass/CABG, Heart Catheterization, Heart Catheterization With Stent Additional Past Surgical History / Comment(s): 1998 CABG 4 vessel, PCI with s tent 2019, EGD and cauterized Elias's esophagus bleed, colonoscoy, lithotripsy, L leg varicose vein surgery, 2 lower back fusions Past Anesthesia/Blood Transfusion Reactions: No Reported Reaction Additional Past Anesthesia/Blood Transfusion Reaction / Comment(s): Pt has received blood in past without reaction. Date of Last Stent Placement:: 2018 Past Psychological History: No Psychological Hx Reported Smoking Status: Former smoker Past Alcohol Use History: None Reported Past Drug Use History: None Reported - Past Family History Father Additional Family Medical History / Comment(s): Father by drowning when pt was 3 yrs old. Mother Family Medical History: Cancer Additional Family Medical History / Comment(s): Mother lived into her 90s. Type of cancer was "female". General Exam - General Exam Comments Initial Comments: GENERAL: Patient is well-developed and well-nourished. Patient is nontoxic and well- hydrated and is in mild distress. ENT: Neck is soft and supple. No significant lymphadenopathy is noted. Oropharynx is clear. Moist mucous membranes. Neck has full range of motion without eliciting any pain. There is no thyroid enlargement and no masses were felt. EYES: The sclera were anicteric and conjunctiva were pink and moist. Extraocular movements were intact and pupils were equal round and reactive to light. Eyelids were unremarkable. PULMONARY: Unlabored respirations. Good breath sounds bilaterally. Patient is crackles bilateral bases CARDIOVASCULAR: There is a regular rate and rhythm without any murmurs gallops or rubs. ABDOMEN: Patient has epigastric abdominal tenderness. SKIN: Skin is clear with no lesions or rashes and otherwise unremarkable. NEUROLOGIC: Patient is alert and oriented x3. Cranial nerves II through XII are grossly intact. Motor and sensory are also intact. Normal speech, volume and content. Symmetrical smile. MUSCULOSKELETAL: Normal extremities with adequate strength and full range of motion. No lower extremity swelling or edema. No calf tenderness. LYMPHATICS: No significant lymphadenopathy is noted PSYCHIATRIC: Normal psychiatric evaluation. Limitations: no limitations Course Vital Signs 01/15/21 01/15/21 01/15/21 12:36 12:56 12:58 Temperature 97.7 F Pulse Rate 92 81 Respiratory 24 20 20 Rate Blood Pressure 146/78 151/80 O2 Sat by Pulse 91 L 95 Oximetry 01/15/21 01/15/21 13:00 14:00 Temperature Pulse Rate 81 77 Respiratory 16 19 Rate Blood Pressure 151/80 167/92 O2 Sat by Pulse 94 L 97 Oximetry Medical Decision Making - Medical Decision Making EKG shows normal sinus rhythm at 80 bpm OH interval 270 QRS is 98 QT interval 392 QTC is 452. Patient's EKG shows no ST segment elevation or depression. Chest x-ray shows bilateral pleural effusions and possible infiltrate. CT of the chest shows multiple nodules probable metastatic disease with pleural effusions bilaterally and opacification consistent with possible pneumonia. Patient also has lymphadenopathy in the mediastinum. I started the patient on antibiotics. I spoke with because he agreed to admit the patient admitted the patient wrote admitting orders. - Lab Data Result diagrams: 01/15/21 12:49 01/15/21 12:49 Lab Results 01/15/21 01/15/21 01/15/21 Range/Units 12:49 12:49 12:49 WBC 16.6 H (3.8-10.6) k/uL RBC 5.06 (4.30-5.90) m/uL Hgb 15.1 (13.0-17.5) gm/dL Hct 44.8 (39.0-53.0) % MCV 88.4 (80.0-100.0) fL MCH 29.9 (25.0-35.0) pg MCHC 33.8 (31.0-37.0) g/dL RDW 13.8 (11.5-15.5) % Plt Count 251 (150-450) k/uL MPV 8.6 Neutrophils % 87 % Lymphocytes % 3 % Monocytes % 5 % Eosinophils % 3 % Basophils % 0 % Neutrophils # 14.5 H (1.3-7.7) k/uL Lymphocytes # 0.6 L (1.0-4.8) k/uL Monocytes # 0.9 (0-1.0) k/uL Eosinophils # 0.4 (0-0.7) k/uL Basophils # 0.1 (0-0.2) k/uL PT 11.0 (9.0-12.0) sec INR 1.0 (<1.2) APTT 22.1 (22.0-30.0) sec D-Dimer 9.15 H (<0.60) mg/L FEU Sodium 140 (137-145) mmol/L Potassium 4.5 (3.5-5.1) mmol/L Chloride 104 (98-107) mmol/L Carbon Dioxide 26 (22-30) mmol/L Anion Gap 10 mmol/L BUN 27 H (9-20) mg/dL Creatinine 1.00 (0.66-1.25) mg/dL Est GFR (CKD-EPI)AfAm 82 (>60 ml/min/1.73 sqM) Est GFR (CKD-EPI)NonAf 71 (>60 ml/min/1.73 sqM) Glucose 137 H (74-99) mg/dL Lactic Ac Sepsis Rflx Plasma Lactic Acid Mateo (0.7-2.0) mmol/L Calcium 11.0 H (8.4-10.2) mg/dL Magnesium 2.2 (1.6-2.3) mg/dL Total Bilirubin 1.3 (0.2-1.3) mg/dL AST 102 H (17-59) U/L ALT 80 H (4-49) U/L Alkaline Phosphatase 198 H (38-126) U/L Troponin I (0.000-0.034) ng/mL NT-Pro-B Natriuret Pep pg/mL Total Protein 6.8 (6.3-8.2) g/dL Albumin 4.0 (3.5-5.0) g/dL 01/15/21 01/15/21 01/15/21 Range/Units 12:49 12:49 12:49 WBC (3.8-10.6) k/uL RBC (4.30-5.90) m/uL Hgb (13.0-17.5) gm/dL Hct (39.0-53.0) % MCV (80.0-100.0) fL MCH (25.0-35.0) pg MCHC (31.0-37.0) g/dL RDW (11.5-15.5) % Plt Count (150-450) k/uL MPV Neutrophils % % Lymphocytes % % Monocytes % % Eosinophils % % Basophils % % Neutrophils # (1.3-7.7) k/uL Lymphocytes # (1.0-4.8) k/uL Monocytes # (0-1.0) k/uL Eosinophils # (0-0.7) k/uL Basophils # (0-0.2) k/uL PT (9.0-12.0) sec INR (<1.2) APTT (22.0-30.0) sec D-Dimer (<0.60) mg/L FEU Sodium (137-145) mmol/L Potassium (3.5-5.1) mmol/L Chloride (98-107) mmol/L Carbon Dioxide (22-30) mmol/L Anion Gap mmol/L BUN (9-20) mg/dL Creatinine (0.66-1.25) mg/dL Est GFR (CKD-EPI)AfAm (>60 ml/min/1.73 sqM) Est GFR (CKD-EPI)NonAf (>60 ml/min/1.73 sqM) Glucose (74-99) mg/dL Lactic Ac Sepsis Rflx Plasma Lactic Acid Mateo 3.3 H* (0.7-2.0) mmol/L Calcium (8.4-10.2) mg/dL Magnesium (1.6-2.3) mg/dL Total Bilirubin (0.2-1.3) mg/dL AST (17-59) U/L ALT (4-49) U/L Alkaline Phosphatase (38-126) U/L Troponin I 0.013 (0.000-0.034) ng/mL NT-Pro-B Natriuret Pep 852 pg/mL Total Protein (6.3-8.2) g/dL Albumin (3.5-5.0) g/dL 01/15/21 Range/Units 13:15 WBC (3.8-10.6) k/uL RBC (4.30-5.90) m/uL Hgb (13.0-17.5) gm/dL Hct (39.0-53.0) % MCV (80.0-100.0) fL MCH (25.0-35.0) pg MCHC (31.0-37.0) g/dL RDW (11.5-15.5) % Plt Count (150-450) k/uL MPV Neutrophils % % Lymphocytes % % Monocytes % % Eosinophils % % Basophils % % Neutrophils # (1.3-7.7) k/uL Lymphocytes # (1.0-4.8) k/uL Monocytes # (0-1.0) k/uL Eosinophils # (0-0.7) k/uL Basophils # (0-0.2) k/uL PT (9.0-12.0) sec INR (<1.2) APTT (22.0-30.0) sec D-Dimer (<0.60) mg/L FEU Sodium (137-145) mmol/L Potassium (3.5-5.1) mmol/L Chloride (98-107) mmol/L Carbon Dioxide (22-30) mmol/L Anion Gap mmol/L BUN (9-20) mg/dL Creatinine (0.66-1.25) mg/dL Est GFR (CKD-EPI)AfAm (>60 ml/min/1.73 sqM) Est GFR (CKD-EPI)NonAf (>60 ml/min/1.73 sqM) Glucose (74-99) mg/dL Lactic Ac Sepsis Rflx Y Plasma Lactic Acid Mateo (0.7-2.0) mmol/L Calcium (8.4-10.2) mg/dL Magnesium (1.6-2.3) mg/dL Total Bilirubin (0.2-1.3) mg/dL AST (17-59) U/L ALT (4-49) U/L Alkaline Phosphatase (38-126) U/L Troponin I (0.000-0.034) ng/mL NT-Pro-B Natriuret Pep pg/mL Total Protein (6.3-8.2) g/dL Albumin (3.5-5.0) g/dL Disposition Clinical Impression: Pneumonia, 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
[2021-01-15 13:01] LABS: Basophils # (A) 0.1 k/uL (0-0.2); Basophils % (A) 0 %; Eosinophils # (A) 0.4 k/uL (0-0.7); Eosinophils % (A) 3 %; HCT 44.8 % (39.0-53.0); HGB 15.1 gm/dL (13.0-17.5); Lymphocytes # (A) 0.6 k/uL (1.0-4.8); Lymphocytes % (A) 3 %; MCH 29.9 pg (25.0-35.0); MCHC 33.8 g/dL (31.0-37.0); MCV 88.4 fL (80.0-100.0); Mean Platelet Volume 8.6; Monocytes # (A) 0.9 k/uL (0-1.0); Monocytes % (A) 5 %; Neutrophils # (A) 14.5 k/uL (1.3-7.7); Neutrophils % (A) 87 %; Platelet Count 251 k/uL (150-450); RBC 5.06 m/uL (4.30-5.90); RDW 13.8 % (11.5-15.5); WBC 16.6 k/uL (3.8-10.6)
[2021-01-15 13:12] LABS: Magnesium 2.2 mg/dL (1.6-2.3); Potassium 4.5 mmol/L (3.5-5.1); Total Bilirubin 1.3 mg/dL (0.2-1.3); Total Protein 6.8 g/dL (6.3-8.2)
[2021-01-15 13:22] LABS: Partial Thromboplastin Time 22.1 sec (22.0-30.0)
--- NOTE | 2021-01-15 13:44 | XR ---
EXAMINATION TYPE: XR chest 2V DATE OF EXAM: 01/15/2021 COMPARISON: None HISTORY: 80-year-old male shortness of breath, difficulty breathing TECHNIQUE: PA and lateral views FINDINGS: Median sternotomy wires are present. Heart normal size. Diffuse nodular interstitial infiltrates. Tra ce effusions. IMPRESSION: Diffuse nodular interstitial infiltrates and trace effusions. Differential considerations include dif fuse metastatic disease and atypical pneumonias.
[2021-01-15 14:10] LABS: D-Dimer 9.15 mg/L FEU (<0.60)
[2021-01-15] MEDS ORDERED: SODIUM CHLORIDE 0.9% 1,000 ML IV ONE (14:10)
--- NOTE | 2021-01-15 15:18 | CT ---
EXAMINATION TYPE: CT chest angio for PE DATE OF EXAM: 01/15/2021 COMPARISON: Radiograph same day. CT abdomen 01/02/2021. HISTORY: 80-year-old male Elevated d-dimer. Shortness of breath and chest pain. TECHNIQUE: Contiguous axial scanning of the chest performed with IV Contrast, patient injected with 1 00 mL of Isovue 370. Coronal/sagittal MIP reconstructions performed. CT DLP: 300.1 mGycm Automated exposure control for dose reduction was used. FINDINGS: Heart upper limits of normal in size without pericardial effusion. No flattening of the interventricu lar septum or reflux of contrast into the hepatic veins. Three-vessel coronary artery calcifications are present. Ectatic aortic root at 3.9 cm and ascending aorta at 3.7 cm. Mild atherosclerotic arch calcifications with conventional arch vessel branching anatomy. Satisfactory opacification of the pulmonary arterial system. There is breathing motion which limits e valuation. No definite pulmonary embolus. Mediastinal and bilateral hilar lymphadenopathy measuring up to 4.6 cm on the right, 3.1 cm on the le ft, and 3.7 cm in the subcarinal region. Increased small to moderate right and small left pleural effusions. Underlying mild to moderate emphy sema. Septal lines are present throughout. Diffuse nodularity has dramatically increased from 1. Marked circumferential thickening of the distal third of the esophagus redemonstrated. Right retrocrural lymph node increased measuring 1.2 cm. Trace perihepatic ascites is new. Underlying liver lesions are more difficult to characterize on this phase of imaging but seem to show some interval increase in size. Gastrohepatic lymphadenopathy measuring up to 4.4 cm. Bones: No osseous destructive process. IMPRESSION: 1. DIFFUSE NODULARITY THROUGHOUT BOTH LUNGS COMPATIBLE WITH DIFFUSE METASTATIC PULMONARY NODULES. MED IASTINAL AND BILATERAL HILAR LYMPHADENOPATHY MEASURING UP TO 4.6 CM. UPPER ABDOMINAL LYMPH NODE MASS MEASURING UP TO 4.4 CM. HEPATIC METASTASES SUSPECTED TO HAVE INCREASED IN SIZE. AGAIN, SUSPECT PRIMAR Y CARCINOMA ARISING FROM THE DISTAL THIRD ESOPHAGUS. 2. THERE IS SUPERIMPOSED SMALL TO MODERATE RIGHT AND SMALL LEFT EFFUSIONS WITH SEPTAL LINES. SUSPECT SUPERIMPOSED MILD TO MODERATE CHF. NO DEFINITE PULMONARY EMBOLUS. 3. NEW TRACE PERIHEPATIC ASCITES.
[2021-01-15] MEDS ORDERED: PNEUMONIA PROTOCOL UTILIZED 1 EACH MISC PO PRN (16:17)
[2021-01-15] MEDS ORDERED: PIPERACILLIN-TAZOBACTAM 3.375 GM in SODIUM CHLORIDE 0.9% 100 ML IVPB ONE (16:30)
[2021-01-15] MEDS ORDERED: AZITHROMYCIN 500 MG in SODIUM CHLORIDE 0.9% 250 ML IVPB SCH (17:00)
[2021-01-15] MEDS ORDERED: HYDROcodone/APAP 7.5-325MG 1 EACH TAB PO ONE (18:05)
--- NOTE | 2021-01-15 19:04 | P.HPIM ---
History of Present Illness 80-year-old male came in with comments of shortness of breath. Patient was recently diagnosed with metastatic esophageal cancer patient is a supposed to be evaluated by oncology today. Patient is not started on any chemotherapy at this time. Patient denied any significant orthopnea patient is presently on 2 L of oxygen usually doesn't use any oxygen patient denied any fever chills was comparing of cough without any significant sputum production denied any lightheadedness. Patient doesn't have any history of heart failure patient has a smoking history years ago. Patient has history of coronary artery disease denied any history of heart failure doesn't use any oxygen at home denied any history of COPD. Patient had a CT angios the chest which did not show any pulmonary embolism which did show significant metastatic disease and possible pulmonary edema there is no obvious lobar infiltrate patient has bilateral pleural effusions as well, patient's BNP is not elevated. Review of Systems REVIEW OF SYSTEMS: CONSTITUTIONAL: No fever, no malaise, no fatigue. HEENT: No recent visual problems or hearing problems. Denied any sore throat. CARDIOVASCULAR: No chest pain, orthopnea, PND, no palpitations, no syncope. PULMONARY: no hemoptysis. GASTROINTESTINAL: No diarrhea, no nausea, no vomiting, no abdominal pain. NEUROLOGICAL: No headaches, no weakness, no numbness. HEMATOLOGICAL: Denies any bleeding or petechiae. GENITOURINARY: Denies any burning micturition, frequency, or urgency. MUSCULOSKELETAL/RHEUMATOLOGICAL: Denies any joint pain, swelling, or any muscle pain. ENDOCRINE: Denies any polyuria or polydipsia. The rest of the 14-point review of systems is negative. Past Medical History Past Medical History: Cancer, Myocardial Infarction ([place]) Additional Past Medical History / Comment(s): Lower GI bleed/elias's esophagus with cautery, ulcerative colitis, hypotension, occasional lower back pain, nephr olithiasis/surgically removed. Last Myocardial Infarction Date:: 1997 History of Any Multi-Drug Resistant Organisms: None Reported Past Surgical History: Back Surgery, Coronary Bypass/CABG, Heart Catheterization, Heart Catheterization With Stent Additional Past Surgical History / Comment(s): 1997 CABG 4 vessel, PCI with stent 2019, EGD and cauterized Elias's esophagus bleed, colonoscoy, lithotri psy, L leg varicose vein surgery, 2 lower back fusions Past Anesthesia/Blood Transfusion Reactions: No Reported Reaction Additional Past Anesthesia/Blood Transfusion Reaction / Comment(s): Pt has received blood in past without reaction. Date of Last Stent Placement:: 2018 Past Psychological History: No Psychological Hx Reported Smoking Status: Former smoker Past Alcohol Use History: None Reported Past Drug Use History: None Reported - Past Family History Father Additional Family Medical History / Comment(s): Father by drowning when pt was 3 yrs old. Mother Family Medical History: Cancer Additional Family Medical History / Comment(s): Mother lived into her 90s. Type of cancer was "female". Medications and Allergies Home Medications Medication Instructions Recorded Confirmed Type Aspirin EC [Ecotrin Low Dose] 81 mg PO DAILY 01/02/21 01/15/21 History Atorvastatin Calcium [Lipitor] 80 mg PO HS 01/02/21 01/15/21 History Ferrous Sulfate [Iron (65 MG 325 mg PO DAILY 01/02/21 01/15/21 History Elemental)] Metoprolol Tartrate [Lopressor] 12.5 mg PO BID 01/02/21 01/15/21 History Multivitamins, Thera [Multivitamin 1 tab PO DAILY 01/02/21 01/15/21 History (formulary)] Pantoprazole Sodium [Protonix] 40 mg PO BID@1000,2200 01/02/21 01/15/21 History Allergies Allergy/AdvReac Type Severity Reaction Status Date / Time No Known Allergies Allergy Verified 01/15/21 14:15 Physical Exam Vitals: Vital Signs Temp Pulse Resp BP Pulse Ox 01/15/21 18:00 98.2 F 95 11 L 139/78 96 01/15/21 17:00 82 21 136/67 94 L 01/15/21 16:00 77 24 162/79 94 L 01/15/21 15:00 78 22 127/60 93 L 01/15/21 14:00 77 19 167/92 97 01/15/21 13:00 81 16 151/80 94 L 01/15/21 12:58 81 20 151/80 95 01/15/21 12:56 20 01/15/21 12:36 97.7 F 92 24 146/78 91 L Intake and Output 01/15/21 01/15/21 01/15/21 06:59 14:59 22:59 Other: Weight 81.647 kg PHYSICAL EXAMINATION: GENERAL: The patient is alert and oriented x3, not in any acute distress. Well developed, well nourished. HEENT: Pupils are round and equally reacting to light. EOMI. No scleral icterus. No conjunctival pallor. Normocephalic, atraumatic. No pharyngeal erythema. No thyromegaly. CARDIOVASCULAR: S1 and S2 present. No murmurs, rubs, or gallops. PULMONARY: no wheezing or crackles. Bilateral rhonchi ABDOMEN: Soft, nontender, nondistended, normoactive bowel sounds. No palpable organomegaly. MUSCULOSKELETAL: No joint swelling or deformity. EXTREMITIES: No cyanosis, clubbing, or pedal edema. NEUROLOGICAL: Gross neurological examination did not reveal any focal deficits. SKIN: No rashes. Results CBC & Chem 7: 01/15/21 12:49 01/15/21 12:49 Labs: Abnormal Lab Results - Last 24 Hours (Table) 01/15/21 01/15/21 01/15/21 Range/Units 12:49 12:49 12:49 WBC 16.6 H (3.8-10.6) k/uL Neutrophils # 14.5 H (1.3-7.7) k/uL Lymphocytes # 0.6 L (1.0-4.8) k/uL D-Dimer 9.15 H (<0.60) mg/L FEU BUN 27 H (9-20) mg/dL Glucose 137 H (74-99) mg/dL Plasma Lactic Acid Mateo (0.7-2.0) mmol/L Calcium 11.0 H (8.4-10.2) mg/dL AST 102 H (17-59) U/L ALT 80 H (4-49) U/L Alkaline Phosphatase 198 H (38-126) U/L 01/15/21 01/15/21 Range/Units 12:49 15:51 WBC (3.8-10.6) k/uL Neutrophils # (1.3-7.7) k/uL Lymphocytes # (1.0-4.8) k/uL D-Dimer (<0.60) mg/L FEU BUN (9-20) mg/dL Glucose (74-99) mg/dL Plasma Lactic Acid Mateo 3.3 H* 2.7 H* (0.7-2.0) mmol/L Calcium (8.4-10.2) mg/dL AST (17-59) U/L ALT (4-49) U/L Alkaline Phosphatase (38-126) U/L Assessment and Plan Plan: -Shortness of breath: Etiology is not clear patient doesn't have any obvious lobar infiltrate my suspicion is low for pneumonia. Patient does have bilateral pleural effusion and maybe pulmonary edema in spite of normal BNP patient will be started on Lasix. Echocardiogram will be obtained pulmonary be consulted. For now I'll continue with Zosyn until patient is evaluated by pulmonary. Pulmonary embolism was ruled out. -Metastatic esophageal cancer: Oncology was consulted and 10-coronary artery disease -Leukocytosis reactive I do not believe patient has pneumonia may have bronchitis -Hyperlipidemia -Gastroesophageal reflux disease - DVT prophylaxis with the Lovenox
[2021-01-15] MEDS: IPRATROPIUM-ALBUTEROL 3 ML NEB INHALATION SCH (20:10)
[2021-01-15] MEDS: FUROSEMIDE 10 MG/ML 4 ML VIAL IV SCH (21:39)
[2021-01-15] MEDS: PANTOPRAZOLE 40 MG TABLET PO SCH (21:39)
[2021-01-15] MEDS: ATORVASTATIN 80 MG TAB PO SCH (21:39)
[2021-01-15] MEDS: METOPROLOL TARTRATE 12.5 MG TAB PO SCH (22:02)
[2021-01-15] MEDS: PIPERACILLIN-TAZOBACTAM 3.375 GM in SODIUM CHLORIDE 0.9% 100 ML IVPB SCH (23:23)
[2021-01-16 03:40] LABS: HCT 38.2 % (39.0-53.0); HGB 12.9 gm/dL (13.0-17.5); MCH 30.1 pg (25.0-35.0); MCHC 33.8 g/dL (31.0-37.0); MCV 89.2 fL (80.0-100.0); Mean Platelet Volume 8.4; Platelet Count 190 k/uL (150-450); RBC 4.28 m/uL (4.30-5.90); RDW 13.8 % (11.5-15.5); WBC 12.9 k/uL (3.8-10.6)
[2021-01-16 03:49] LABS: African American GFR (CKD) 89 (>60 ml/min/1.73 sqM); Anion Gap 6 mmol/L; Blood Urea Nitrogen 24 mg/dL (9-20); Calcium 9.7 mg/dL (8.4-10.2); Carbon Dioxide 26 mmol/L (22-30); Chloride 104 mmol/L (98-107); Glucose 105 mg/dL (74-99); Non-African American GFR(CKD) 77 (>60 ml/min/1.73 sqM); Sodium 136 mmol/L (137-145)
[2021-01-16] MEDS: IPRATROPIUM-ALBUTEROL 3 ML NEB INHALATION SCH ×4 (07:21→19:50)
[2021-01-16 07:23] LABS: Glucose,Whole Blood 107 mg/dL (75-99)
--- NOTE | 2021-01-16 07:46 | XR ---
EXAMINATION TYPE: XR chest 2V DATE OF EXAM: 01/16/2021 COMPARISON: 01/15/2021 HISTORY: Shortness of breath TECHNIQUE: Frontal and lateral views of the chest are obtained. FINDINGS: Scattered senescent parenchymal changes noted. Hyperinflation compatible with COPD. Bilateral reticulonodular infiltrates persist with slightly increasing left-sided pleural effusion. Heart size is stable. Mediastinal structures are stable and grossly unremarkable. No evidence for hilar prominence. Degenerative changes dorsal spine. IMPRESSION: 1. Bilateral reticulonodular infiltrates persist with slightly increasing left-sided pleural effusion .
[2021-01-16] MEDS: MULTIVITAMINS, THERA 1 EACH TAB PO SCH (08:19)
[2021-01-16] MEDS: PANTOPRAZOLE 40 MG TABLET PO SCH ×2 (08:19→20:17)
[2021-01-16] MEDS: FUROSEMIDE 10 MG/ML 4 ML VIAL IV SCH (08:20)
[2021-01-16] MEDS: METOPROLOL TARTRATE 12.5 MG TAB PO SCH ×2 (08:20→20:17)
[2021-01-16] MEDS: PIPERACILLIN-TAZOBACTAM 3.375 GM in SODIUM CHLORIDE 0.9% 100 ML IVPB SCH (08:20)
[2021-01-16] MEDS: ENOXAPARIN 40 MG/0.4 ML SYRINGE SQ SCH (08:20)
[2021-01-16] MEDS ORDERED: ASPIRIN 81 MG PO SCH (09:00)
--- NOTE | 2021-01-16 10:37 | ECHOF ---
Referral Reason:chf MEASUREMENTS -------- HEIGHT: 177.8 cm WEIGHT: 81.6 kg BP: 113/57 RVIDd: 3.3 cm (< 3.3) IVSd: 1.6 cm (0.6 - 1.1) LVIDd: 4.7 cm (3.9 - 5.3) LVPWd: 1.2 cm (0.6 - 1.1) IVSs: 1.9 cm LVIDs: 3.6 cm LVPWs: 1.7 cm LA Diam: 3.4 cm (2.7 - 3.8) Ao Diam: 3.9 cm (2.0 - 3.7) AV Cusp: 2.4 cm (1.5 - 2.6) MV EXCURSION: 11.453 mm (> 18.000) MV EF SLOPE: 86 mm/s (70 - 150) EPSS: 1.0 cm MV E Reza: 0.47 m/s MV DecT: 296 ms MV A Reza: 0.65 m/s MV E/A Ratio: 0.73 RAP: 5.00 mmHg RVSP: 34.67 mmHg FINDINGS -------- Sinus rhythm. This was a technically adequate study. The left ventricular size is normal. There is moderate concentric left ventricular hypertrophy. O verall left ventricular systolic function is mild-moderately impaired with, an EF between 40 - 45 %. Basal inferior LV wall motion is normal. Basal inferoseptal LV wall motion is normal. The right ventricle is mildly enlarged. The left atrial size is normal. The right atrium is normal in size. Interatrial and interventricular septum intact. There is mild aortic valve sclerosis. The mitral valve leaflets are mildly thickened. Mild mitral annular calcification present. Mild tricuspid regurgitation present. There is mild pulmonary hypertension. The right ventricular systolic pressure, as measured by Doppler, is 34.67mmHg. Trace/mild (physiologic) pulmonic regurgitation. The aortic root is dilated measuring 3.9cm. Normal inferior vena cava with normal inspiratory collapse consistent with estimated right atrial pre ssure of 5 mmHg. There is no pericardial effusion. CONCLUSIONS -------- 1. The left ventricular size is normal. 2. There is moderate concentric left ventricular hypertrophy. 3. Basal inferior LV wall motion is normal. 4. Basal inferoseptal LV wall motion is normal. 5. The right ventricle is mildly enlarged. 6. There is mild aortic valve sclerosis. 7. The mitral valve leaflets are mildly thickened. 8. Mild mitral annular calcification present. 9. Mild tricuspid regurgitation present. 10. There is mild pulmonary hypertension. 11. The right ventricular systolic pressure, as measured by Doppler, is 34.67mmHg. 12. Trace/mild (physiologic) pulmonic regurgitation. 13. The aortic root is dilated measuring 3.9cm. 14. There is no pericardial effusion. FRONT DESK COORDINATOR: Diana Guevara RDCS
--- NOTE | 2021-01-16 12:03 | P.CNPUL ---
History of Present Illness Consult date: 01/16/21 Requesting physician: Lauri Bonilla Reason for consult: dyspnea, hypoxemia, abnormal CXR/CT Chief complaint: Shortness of breath. History of present illness: Pulmonary consult dated 01/16/2021. 80-year-old male, recently diagnosed with esophageal cancer. The patient apparently was diagnosed by one of the gastroenterologists. The patient apparently also was determined to have metastatic esophageal cancer, and lung metastases, and liver metastases. Apparently, the patient did see one of the oncologist today. The plan is to get radiation therapy to a liver lesion to reduce pain, and the potentially go onto chemotherapy. I was asked to see the patient for shortness of breath. The patient denies any chest pain or pressure. Denies any fever or chills. No cough. No phlegm production. Was a heavy smoker for a number of years. 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 The patient denies a prior history of any lung disease. The patient does have a history of previous myocardial infarction, Elias's esophagus, chronic gastroesophageal reflux disease, GI bleed, ulcerative colitis, kidney stones, previous bypass grafting, heart catheterization with stent, and back surgery. Review of Systems REVIEW OF SYSTEMS: CONSTITUTIONAL: [Negative.] NEUROLOGIC: [ Negative.] HEENT: [ Negative.] CARDIAC: [Negative.] PULMONARY: Shortness of breath. GI: Difficulty in swallowing. Chronic acid reflux disease. : [Negative.] RHEUMATOLOGIC: [ Negative.] IMMUNOLOGIC: [ Negative.] ENDOCRINE: [Negative. ] DERMATOLOGIC: [Negative.] Past Medical History Past Medical History: Cancer, Myocardial Infarction ([place]) Additional Past Medical History / Comment(s): Lower GI bleed/elias's esophagus with cautery, ulcerative colitis, hypotension, occasional lower back pain, nephrolithiasis/surgically removed. Last Myocardial Infarction Date:: 1997 History of Any Multi-Drug Resistant Organisms: None Reported Past Surgical History: Back Surgery, Coronary Bypass/CABG, Heart Catheterization, Heart Catheterization With Stent Additional Past Surgical History / Comment(s): 1997 CABG 4 vessel, PCI with stent 2019, EGD and cauterized Elias's esophagus bleed, colonoscoy, lithotripsy, L leg varicose vein surgery, 2 lower back fusions Past Anesthesia/Blood Transfusion Reactions: No Reported Reaction Additional Past Anesthesia/Blood Transfusion Reaction / Comment(s): Pt has received blood in past without reaction. Date of Last Stent Placement:: 2018 Past Psychological History: No Psychological Hx Reported Smoking Status: Former smoker Past Alcohol Use History: None Reported Past Drug Use History: None Reported - Past Family History Father Additional Family Medical History / Comment(s): Father by drowning when pt was 3 yrs old. Mother Family Medical History: Cancer Additional Family Medical History / Comment(s): Mother lived into her 90s. Type of cancer was "female". Medications and Allergies Home Medications Medication Instructions Recorded Confirmed Type Aspirin EC [Ecotrin Low Dose] 81 mg PO DAILY 01/02/21 01/15/21 History Atorvastatin Calcium [Lipitor] 80 mg PO HS 01/02/21 01/15/21 History Ferrous Sulfate [Iron (65 MG 325 mg PO DAILY 01/02/21 01/15/21 History Elemental)] Metoprolol Tartrate [Lopressor] 12.5 mg PO BID 01/02/21 01/15/21 History Multivitamins, Thera [Multivitamin 1 tab PO DAILY 01/02/21 01/15/21 History (formulary)] Pantoprazole Sodium [Protonix] 40 mg PO BID@1000,2200 01/02/21 01/15/21 History Allergies Allergy/AdvReac Type Severity Reaction Status Date / Time No Known Allergies Allergy Verified 01/15/21 14:15 Physical Exam Osteopathic Statement: *. No significant issues noted on an osteopathic structural exam other than those noted in the History and Physical/Consult. Vitals: Vital Signs Temp Pulse Pulse Resp BP BP Pulse Ox 01/16/21 11:23 80 01/16/21 11:16 84 01/16/21 07:53 98.1 F 87 20 151/83 91 L 01/16/21 07:34 86 01/16/21 07:24 80 01/16/21 02:26 98.3 F 79 19 113/57 90 L 01/15/21 23:15 97.8 F 81 16 156/80 96 01/15/21 21:00 76 18 114/51 98 01/15/21 20:23 73 01/15/21 20:10 77 01/15/21 18:00 98.2 F 95 11 L 139/78 96 01/15/21 17:00 82 21 136/67 94 L 01/15/21 16:00 77 24 162/79 94 L 01/15/21 15:00 78 22 127/60 93 L 01/15/21 14:00 77 19 167/92 97 01/15/21 13:00 81 16 151/80 94 L 01/15/21 12:58 81 20 151/80 95 01/15/21 12:56 20 01/15/21 12:36 97.7 F 92 24 146/78 91 L Intake and Output 01/15/21 01/16/21 01/16/21 22:59 06:59 14:59 Other: # Voids 2 Weight 81.647 kg No acute distress, oriented 3. No obvious respiratory distress, accessory muscle use, or conversational dyspnea. HEENT examination is grossly unremarkable. . Neck supple. Full range of motion. No adenopathy thyromegaly or neck vein distention. Cardiovascular examination reveals regular rhythm rate. S1-S2 normal. No S3 or S4. No discernible murmur noted. Heart rate 80 bpm. Lungs reveal diffuse scattered rhonchi. No crackles or wheezes. Breath sounds equal bilaterally. 3 L saturation is 91%. Abdomen soft bowel sounds are heard. No masses or tenderness. Extremities are intact. No cyanosis clubbing or edema. Skin is without rash or lesion. Neurologic examination is brief but nonfocal. Results - Laboratory Findings CBC and BMP: 01/16/21 02:53 01/16/21 02:53 PT/INR, D-dimer PT 11.0 sec (9.0-12.0) 01/15/21 12:49 INR 1.0 (<1.2) 01/15/21 12:49 D-Dimer 9.15 mg/L FEU (<0.60) H 01/15/21 12:49 Abnormal lab findings: Abnormal Labs 01/15/21 01/15/21 01/15/21 12:49 12:49 12:49 WBC 16.6 H RBC Hgb Hct Neutrophils # 14.5 H Lymphocytes # 0.6 L D-Dimer 9.15 H Sodium BUN 27 H Glucose 137 H POC Glucose (mg/dL) Plasma Lactic Acid Mateo Calcium 11.0 H AST 102 H ALT 80 H Alkaline Phosphatase 198 H 01/15/21 01/15/21 01/15/21 12:49 15:51 19:16 WBC RBC Hgb Hct Neutrophils # Lymphocytes # D-Dimer Sodium BUN Glucose POC Glucose (mg/dL) Plasma Lactic Acid Mateo 3.3 H* 2.7 H* 3.0 H* Calcium AST ALT Alkaline Phosphatase 01/15/21 01/16/21 01/16/21 22:45 02:53 02:53 WBC 12.9 H RBC 4.28 L Hgb 12.9 L Hct 38.2 L Neutrophils # Lymphocytes # D-Dimer Sodium 136 L BUN 24 H Glucose 105 H POC Glucose (mg/dL) Plasma Lactic Acid Mateo 2.5 H* Calcium AST ALT Alkaline Phosphatase 01/16/21 01/16/21 02:53 07:21 WBC RBC Hgb Hct Neutrophils # Lymphocytes # D-Dimer Sodium BUN Glucose POC Glucose (mg/dL) 107 H Plasma Lactic Acid Mateo 2.3 H* Calcium AST ALT Alkaline Phosphatase - Diagnostic Findings Chest x-ray: image reviewed CT scan - chest: image reviewed Assessment and Plan Assessment: Diffusely metastatic esophageal cancer, recently diagnosed, with liver and lung metastasis. Shortness of breath, secondary to lymphangitic carcinomatosis, secondary to the patient's esophageal cancer. Prior history of tobacco use, with possible underlying COPD. Previous history of myocardial infarction. Status post bypass grafting. History of CAD with previous stent placement. History of Elias's esophagus. Chronic acid reflux disease. History of ulcerative colitis. History of GI bleed. History of kidney stones. Plan: Plan dated 01/16/2021. The patient has lymphangitic carcinomatosis, secondary to his known and recently diagnosed esophageal cancer. Apparently, according to the family, the plan is radiation to the liver lesion, for pain control, and subsequent chemotherapy. The pulmonary standpoint, the patient shortness of breath relates his underlying lymphogenic carcinomatosis. Other than oxygen therapy, not much else can be offered. We'll continue to follow. Prognosis is obviously not very good. We will check a pro-calcitonin level. I suspect there is no evidence of active infection. I suspect updrafts probably will not help very much either. Time with Patient: Greater than 30
[2021-01-16 12:04] LABS: Glucose,Whole Blood 116 mg/dL (75-99)
[2021-01-16] MEDS: ACETAMINOPHEN TAB 325 MG TAB PO PRN ×2 (14:05→22:53)
[2021-01-16] MEDS: SENNOSIDES 8.6 MG TAB PO SCH ×2 (14:05→20:16)
--- NOTE | 2021-01-16 14:36 | P.PN ---
Subjective Progress Note Date: 01/16/21 80-year-old male came in with comments of shortness of breath. Patient was recently diagnosed with metastatic esophageal cancer patient is a supposed to be evaluated by oncology today. Patient is not started on any chemotherapy at this time. Patient denied any significant orthopnea patient is presently on 2 L of oxygen usually doesn't use any oxygen patient denied any fever chills was comparing of cough without any significant sputum production denied any lightheadedness. Patient doesn't have any history of heart failure patient has a smoking history years ago. Patient has history of coronary artery disease denied any history of heart failure doesn't use any oxygen at home denied any history of COPD. Patient had a CT angios the chest which did not show any pulmonary embolism which did show significant metastatic disease and possible pulmonary edema there is no obvious lobar infiltrate patient has bilateral pleural effusions as well, patient's BNP is not elevated. 01/16/2021 Patient is seen in follow-up and is currently being evaluated by pulmonary has also been seen by oncology with multiple family members at the bedside. Patient continues to have shortness of breath and is currently maintained on 3 L via nasal cannula with 91% oxygen saturation. Patient has breathing treatments along with IV Lasix and will continue. White blood count improved at 12.9 hemoglobin is stable at 12.9, sodium is 136 and current creatinine is 0.94 and will continue with Lasix and monitor kidney functions closely. Patient also had elevated lactic acid which is slowly trending down. patient also maintained on IV antibiotics in the form of Zosyn and will continue. Awaiting oncology report as the family mentioned he is to be receiving radiation and possible chemotherapy. Review of systems: Constitutional: reports of fatigue, no reports of fever, or chills Cardiovascular: No reports of chest pain or palpitations Respiratory: reports of shortness of breath and difficulty in breathing with slight improvement from yesterday GI: No reports of nausea, vomiting, or diarrhea : No reports of dysuria or retention Neurovascular: Reports generalized weakness All medications have been reviewed Objective - Vital Signs Vital signs: Vital Signs Temp 98.1 F 01/16/21 07:53 Pulse 87 01/16/21 07:53 Resp 20 01/16/21 07:53 BP 151/83 01/16/21 07:53 Pulse Ox 91 L 01/16/21 07:53 Intake & Output 01/15/21 01/16/21 01/16/21 18:59 06:59 18:59 Weight 81.647 kg Other: # Voids 2 - Exam GENERAL: The patient is alert and oriented x3, not in any acute distress. Well developed, well nourished. HEENT: Pupils are round and equally reacting to light. EOMI. No scleral icterus. No conjunctival pallor. Normocephalic, atraumatic. No pharyngeal erythema. No thyromegaly. CARDIOVASCULAR: S1 and S2 present. No murmurs, rubs, or gallops. PULMONARY: no wheezing or crackles noted. Bilateral rhonchi ABDOMEN: Soft, nontender, nondistended, normoactive bowel sounds. No palpable organomegaly. MUSCULOSKELETAL: No joint swelling or deformity. EXTREMITIES: No cyanosis, clubbing, or pedal edema. NEUROLOGICAL: Gross neurological examination did not reveal any focal deficits. SKIN: No rashes. - Labs CBC & Chem 7: 01/16/21 02:53 01/16/21 02:53 Labs: Abnormal Lab Results - Last 24 Hours (Table) 01/15/21 01/15/21 01/15/21 Range/Units 12:49 12:49 12:49 WBC 16.6 H (3.8-10.6) k/uL RBC (4.30-5.90) m/uL Hgb (13.0-17.5) gm/dL Hct (39.0-53.0) % Neutrophils # 14.5 H (1.3-7.7) k/uL Lymphocytes # 0.6 L (1.0-4.8) k/uL D-Dimer 9.15 H (<0.60) mg/L FEU Sodium (137-145) mmol/L BUN 27 H (9-20) mg/dL Glucose 137 H (74-99) mg/dL POC Glucose (mg/dL) (75-99) mg/dL Plasma Lactic Acid Mateo (0.7-2.0) mmol/L Calcium 11.0 H (8.4-10.2) mg/dL AST 102 H (17-59) U/L ALT 80 H (4-49) U/L Alkaline Phosphatase 198 H (38-126) U/L 05/19/21 05/19/21 05/19/21 Range/Units 12:49 15:51 19:16 WBC (3.8-10.6) k/uL RBC (4.30-5.90) m/uL Hgb (13.0-17.5) gm/dL Hct (39.0-53.0) % Neutrophils # (1.3-7.7) k/uL Lymphocytes # (1.0-4.8) k/uL D-Dimer (<0.60) mg/L FEU Sodium (137-145) mmol/L BUN (9-20) mg/dL Glucose (74-99) mg/dL POC Glucose (mg/dL) (75-99) mg/dL Plasma Lactic Acid Mateo 3.3 H* 2.7 H* 3.0 H* (0.7-2.0) mmol/L Calcium (8.4-10.2) mg/dL AST (17-59) U/L ALT (4-49) U/L Alkaline Phosphatase (38-126) U/L 01/15/21 01/16/21 01/16/21 Range/Units 22:45 02:53 02:53 WBC 12.9 H (3.8-10.6) k/uL RBC 4.28 L (4.30-5.90) m/uL Hgb 12.9 L (13.0-17.5) gm/dL Hct 38.2 L (39.0-53.0) % Neutrophils # (1.3-7.7) k/uL Lymphocytes # (1.0-4.8) k/uL D-Dimer (<0.60) mg/L FEU Sodium 136 L (137-145) mmol/L BUN 24 H (9-20) mg/dL Glucose 105 H (74-99) mg/dL POC Glucose (mg/dL) (75-99) mg/dL Plasma Lactic Acid Mateo 2.5 H* (0.7-2.0) mmol/L Calcium (8.4-10.2) mg/dL AST (17-59) U/L ALT (4-49) U/L Alkaline Phosphatase (38-126) U/L 01/16/21 01/16/21 Range/Units 02:53 07:21 WBC (3.8-10.6) k/uL RBC (4.30-5.90) m/uL Hgb (13.0-17.5) gm/dL Hct (39.0-53.0) % Neutrophils # (1.3-7.7) k/uL Lymphocytes # (1.0-4.8) k/uL D-Dimer (<0.60) mg/L FEU Sodium (137-145) mmol/L BUN (9-20) mg/dL Glucose (74-99) mg/dL POC Glucose (mg/dL) 107 H (75-99) mg/dL Plasma Lactic Acid Mateo 2.3 H* (0.7-2.0) mmol/L Calcium (8.4-10.2) mg/dL AST (17-59) U/L ALT (4-49) U/L Alkaline Phosphatase (38-126) U/L Assessment and Plan Assessment: -Shortness of breath: Etiology is not clear patient doesn't have any obvious lobar infiltrate my suspicion is low for pneumonia. Patient maintained on IV Zosyn and remains afebrile. Patient continues on 3 L of oxygen and was evaluated by pulmonary. Continues on IV Lasix and will continue on watch kidney functions closely for bilateral pleural effusion and maybe pulmonary edema, PE ruled out -Metastatic esophageal cancer: Oncology following and discussing possible radiation/chemotherapy and will need close outpatient follow-up -coronary artery disease -Leukocytosis reactive, trending down and is 12.9 -Hyperlipidemia -Gastroesophageal reflux disease -DVT prophylaxis: Lovenox Plan: Continue with IV Lasix for now and pulmonary along with oncology following. Plans are for possible radiation/chemotherapy and awaiting oncology note at this time. Patient is continued on breathing treatments as well and continues on 3 L of oxygen although states shortness of breath is slightly improved from yesterday. 2-D echo shows moderate concentric left ventricular hypertrophy with LV systolic function mild to moderately impaired with an EF of 40-45% with some mild tricuspid regurgitation present along with mild pulmonary hypertension. Multiple family members at the bedside and discussing possible treatment options and plans moving forward. Patient also having some constipation and will add Senokot stating he has not had a bowel movement in 4 days. Chest x-ray today shows bilateral reticulonodular infiltrates persist with slightly increasing left-sided pleural effusion. Will repeat a.m. labs and continue to monitor closely.
[2021-01-16 17:15] LABS: Glucose,Whole Blood 141 mg/dL (75-99)
--- NOTE | 2021-01-16 17:54 | P.CONS ---
History of Present Illness - Reason for Consult Consult date: 01/16/21 New metastatic cancer Requesting physician: Hipolito Pineda - Chief Complaint Dysphagia - History of Present Illness 80-year-old male, recently diagnosed with esophageal cancer. Unfortunetly appears to be aggressive and metastatic to bilateral lungs. The plan is to get radiation therapy and chemotherapy to assist in allowing better oral intake. CT scan appears to possibly represent lymphangitic carcinomatosis. PUlomonology is consulted to further evaluate although ct reveals bilateral lung involvement. The patient denies a prior history of any lung disease. The patient does have a history of previous myocardial infarction, Elias's esophagus, chronic gastroesophageal reflux disease,Hear cath and stent. Review of Systems All systems: negative Past Medical History Past Medical History: Cancer, Myocardial Infarction ([place]) Additional Past Medical History / Comment(s): Lower GI bleed/elias's esophagus with cautery, ulcerative colitis, hypotension, occasional lower back pain, nephrolithiasis/surgically removed. Last Myocardial Infarction Date:: 1997 History of Any Multi-Drug Resistant Organisms: None Reported Past Surgical History: Back Surgery, Coronary Bypass/CABG, Heart Catheterization, Heart Catheterization With Stent Additional Past Surgical History / Comment(s): 1997 CABG 4 vessel, PCI with stent 2018, EGD and cauterized Elias's esophagus bleed, colonoscoy, lithotripsy, L leg varicose vein surgery, 2 lower back fusions Past Anesthesia/Blood Transfusion Reactions: No Reported Reaction Additional Past Anesthesia/Blood Transfusion Reaction / Comm: Pt has received blood in past without reaction. Date of Last Stent Placement:: 2018 Past Psychological History: No Psychological Hx Reported Smoking Status: Former smoker Past Alcohol Use History: None Reported Past Drug Use History: None Reported - Past Family History Father Additional Family Medical History / Comment(s): Father by drowning when pt was 3 yrs old. Mother Family Medical History: Cancer Additional Family Medical History / Comment(s): Mother lived into her 90s. Type of cancer was "female". Medications and Allergies Home Medications Medication Instructions Recorded Confirmed Type RX: Aspirin EC [Ecotrin Low Dose] 81 mg PO DAILY 01/02/21 01/15/21 History RX: Atorvastatin Calcium [Lipitor] 80 mg PO HS 01/02/21 01/15/21 History RX: Ferrous Sulfate [Iron (65 MG 325 mg PO DAILY 01/02/21 01/15/21 History Elemental)] RX: Metoprolol Tartrate [Lopressor] 12.5 mg PO BID 01/02/21 01/15/21 History RX: Multivitamins, Thera 1 tab PO DAILY 01/02/21 01/15/21 History [Multivitamin (formulary)] RX: Pantoprazole Sodium [Protonix] 40 mg PO BID@1000,2200 01/02/21 01/15/21 History Allergies Allergy/AdvReac Type Severity Reaction Status Date / Time No Known Allergies Allergy Verified 01/15/21 14:15 Physical Exam Vitals: Vital Signs Temp Pulse Pulse Resp BP BP Pulse Ox 01/16/21 16:07 88 01/16/21 15:54 88 01/16/21 14:00 98.2 F 90 16 136/67 92 L 01/16/21 11:23 80 01/16/21 11:16 84 01/16/21 07:53 98.1 F 87 20 151/83 91 L 01/16/21 07:34 86 01/16/21 07:24 80 01/16/21 02:26 98.3 F 79 19 113/57 90 L 01/15/21 23:15 97.8 F 81 16 156/80 96 01/15/21 21:00 76 18 114/51 98 01/15/21 20:23 73 01/15/21 20:10 77 01/15/21 18:00 98.2 F 95 11 L 139/78 96 Intake and Output 01/16/21 01/16/21 01/16/21 06:59 14:59 22:59 Other: # Voids 2 - Constitutional General appearance: cooperative, mild distress - EENT Eyes: EOMI ENT: hard of hearing, NA/AT - Neck Neck: normal ROM - Respiratory Respiratory: bilateral: diminished, rhonchi - Cardiovascular Rhythm: regular - Gastrointestinal General gastrointestinal: soft, tenderness - Integumentary Integumentary: pale - Neurologic Neurologic: CNII-XII intact - Musculoskeletal Musculoskeletal: generalized weakness, strength equal bilaterally - Psychiatric Psychiatric: A&O x's 3, appropriate affect, intact judgment & insight Results CBC & Chem 7: 01/20/21 05:26 01/20/21 05:26 Labs: Abnormal Lab Results - Last 24 Hours (Table) 01/15/21 01/15/21 01/16/21 Range/Units 19:16 22:45 02:53 WBC 12.9 H (3.8-10.6) k/uL RBC 4.28 L (4.30-5.90) m/uL Hgb 12.9 L (13.0-17.5) gm/dL Hct 38.2 L (39.0-53.0) % Sodium (137-145) mmol/L BUN (9-20) mg/dL Glucose (74-99) mg/dL POC Glucose (mg/dL) (75-99) mg/dL Plasma Lactic Acid Mateo 3.0 H* 2.5 H* (0.7-2.0) mmol/L 01/16/21 01/16/21 01/16/21 Range/Units 02:53 02:53 07:21 WBC (3.8-10.6) k/uL RBC (4.30-5.90) m/uL Hgb (13.0-17.5) gm/dL Hct (39.0-53.0) % Sodium 136 L (137-145) mmol/L BUN 24 H (9-20) mg/dL Glucose 105 H (74-99) mg/dL POC Glucose (mg/dL) 107 H (75-99) mg/dL Plasma Lactic Acid Mateo 2.3 H* (0.7-2.0) mmol/L 01/16/21 01/16/21 Range/Units 12:02 17:14 WBC (3.8-10.6) k/uL RBC (4.30-5.90) m/uL Hgb (13.0-17.5) gm/dL Hct (39.0-53.0) % Sodium (137-145) mmol/L BUN (9-20) mg/dL Glucose (74-99) mg/dL POC Glucose (mg/dL) 116 H 141 H (75-99) mg/dL Plasma Lactic Acid Mateo (0.7-2.0) mmol/L Microbiology - Last 24 Hours (Table) 01/16/21 11:16 Sputum Culture - Preliminary Sputum CT scan - abdomen: report reviewed CT scan - chest: report reviewed CT scan - pelvis: report reviewed Assessment and Plan (1) 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 They would like to move forward with palliative treatment plan, they understand treatment expectations and intent is not curative, but to reduce symptoms and in hopes to prolong life by control of disease. Consult has been placed for gen surgery for port placement - GI to assess need of esophageal stent and/or PEG (likely both and performed together) - Radiation Oncology with Dr. Mancilla for radiation therapy prior and possibly concurrent - May need to send to Dr. Fitch - [facility] Nugent for Esophageal Stent and Peg PLacement (Discussed with Dr. Fitch and will expedite appointment after discharge) We reviewed CT chest bilateral metastatic disease in lungs He is still winded with conversation, his attitude is good and he is smiling and joking with family. Greater than 45 minutes was spent counseling and coordinating care and discussin g case with other specialties Physician Attest: I have completed the full history and physical and agree with above dictation, dictated as a ascribe.
[2021-01-16] MEDS: ATORVASTATIN 80 MG TAB PO SCH (20:17)
[2021-01-17 06:55] LABS: Glucose,Whole Blood 103 mg/dL (75-99)
[2021-01-17] MEDS: IPRATROPIUM-ALBUTEROL 3 ML NEB INHALATION SCH ×4 (08:38→20:36)
[2021-01-17] MEDS: ACETAMINOPHEN TAB 325 MG TAB PO PRN ×2 (09:17→15:34)
[2021-01-17] MEDS: MULTIVITAMINS, THERA 1 EACH TAB PO SCH (09:18)
[2021-01-17] MEDS: METOPROLOL TARTRATE 12.5 MG TAB PO SCH ×2 (09:18→21:25)
[2021-01-17] MEDS: ENOXAPARIN 40 MG/0.4 ML SYRINGE SQ SCH (09:18)
[2021-01-17] MEDS: PANTOPRAZOLE 40 MG TABLET PO SCH (09:18)
[2021-01-17] MEDS: SENNOSIDES 8.6 MG TAB PO SCH ×2 (09:18→21:25)
--- NOTE | 2021-01-17 10:30 | P.GSCN ---
History of Present Illness Consult date: 01/17/21 History of present illness: 80-year-old male presents to the emergency department with complaints of shortness of breath and abdominal pain. He is noted to have a history of esophageal cancer, with concern for metastasis. Consult was placed by oncology for placement of Mediport. Based on chart evaluation, pathology did discuss the case with the patient and the patient's family and plan is for palliative management of a cancer, not curative. He is still pending evaluation by radiation oncology as well. There is pending discussion on esophageal stenting and PEG tube placement as well by gastroenterology service. He denies any vomiting or food boluses getting stuck. He is currently tolerating a dysphagia diet. He does complain of some epigastric pain. He states overnight, he had a significant amount of pain and currently the pain is somewhat better, however still present. He denies any significant bowel function over the past 48 hours. Review of Systems All systems: negative Past Medical History Past Medical History: Cancer, Myocardial Infarction ([place]) Additional Past Medical History / Comment(s): Lower GI bleed/elias's esophagus with cautery, ulcerative colitis, hypotension, occasional lower back pain, nephrolithiasis/surgically removed. Last Myocardial Infarction Date:: 1997 History of Any Multi-Drug Resistant Organisms: None Reported Past Surgical History: Back Surgery, Coronary Bypass/CABG, Heart Catheterization, Heart Catheterization With Stent Additional Past Surgical History / Comment(s): 1997 CABG 4 vessel, PCI with stent 2019, EGD and cauterized Elias's esophagus bleed, colonoscoy, lithotripsy, L leg varicose vein surgery, 2 lower back fusions Past Anesthesia/Blood Transfusion Reactions: No Reported Reaction Additional Past Anesthesia/Blood Transfusion Reaction / Comm: Pt has received blood in past without reaction. Date of Last Stent Placement:: 2018 Past Psychological History: No Psychological Hx Reported Smoking Status: Former smoker Past Alcohol Use History: None Reported Past Drug Use History: None Reported - Past Family History Father Additional Family Medical History / Comment(s): Father by drowning when pt was 3 yrs old. Mother Family Medical History: Cancer Additional Family Medical History / Comment(s): Mother lived into her 90s. Type of cancer was "female". Medications and Allergies Home Medications Medication Instructions Recorded Confirmed Type Aspirin EC [Ecotrin Low Dose] 81 mg PO DAILY 01/02/21 01/15/21 History Atorvastatin Calcium [Lipitor] 80 mg PO HS 01/02/21 01/15/21 History Ferrous Sulfate [Iron (65 MG 325 mg PO DAILY 01/02/21 01/15/21 History Elemental)] Metoprolol Tartrate [Lopressor] 12.5 mg PO BID 01/02/21 01/15/21 History Multivitamins, Thera [Multivitamin 1 tab PO DAILY 01/02/21 01/15/21 History (formulary)] Pantoprazole Sodium [Protonix] 40 mg PO BID@1000,2200 01/02/21 01/15/21 History Allergies Allergy/AdvReac Type Severity Reaction Status Date / Time No Known Allergies Allergy Verified 01/15/21 14:15 Surgical - Exam Osteopathic Statement: *. No significant issues noted on an osteopathic structural exam other than those noted in the History and Physical/Consult. Vital Signs Temp Pulse Resp BP Pulse Ox 97.7 F 92 24 146/78 91 L 01/15/21 12:36 01/15/21 12:36 01/15/21 12:36 01/15/21 12:36 01/15/21 12:36 - General no distress - Eyes PERRL, normal ocular movement - ENT normal mucosa, no hearing loss - Neck trachea midline - Respiratory normal respiratory effort - Abdomen Soft, some tenderness to palpation in bilateral upper quadrants, nondistended, no rebound, no guarding - Psychiatric oriented to time, oriented to person, oriented to place Results - Labs 01/16/21 02:53 01/16/21 02:53 Abnormal Lab Results - Last 24 Hours (Table) 01/16/21 01/16/21 01/16/21 Range/Units 06:00 12:02 17:14 POC Glucose (mg/dL) 116 H 141 H (75-99) mg/dL Procalcitonin 0.33 H (0.02-0.09) ng/mL 01/17/21 Range/Units 06:53 POC Glucose (mg/dL) 103 H (75-99) mg/dL Procalcitonin (0.02-0.09) ng/mL Microbiology - Last 24 Hours (Table) 01/16/21 11:16 Gram Stain - Preliminary Sputum Sputum Culture - Preliminary 01/15/21 15:40 Blood Culture - Preliminary Blood No Growth after 24 hours 01/15/21 15:41 Blood Culture - Preliminary Blood No Growth after 24 hours Assessment and Plan Plan: 80-year-old male with metastatic esophageal cancer. Consult was placed for Mediport placement for palliative treatment of the patient's cancer. Patient is also pending discussion on possible esophageal stenting, PEG tube placement, radiation. As the port is for palliative treatment, port can be placed as an outpatient, after discussion of plan for the possible multiple procedures. I discussed this with the patient's family at bedside. We will await further planning from the GI service and radiation oncology and medical oncology prior to port placement. I will discuss this with the oncology service.
[2021-01-17] MEDS: MORPHINE SULFATE 2 MG/ML SYRINGE IVP PRN ×2 (10:40→14:01)
[2021-01-17 11:02] LABS: Basophils # (A) 0.07 X 10*3/uL (0.00-0.10); Basophils % (A) 0.5 %; Eosinophils # (A) 0.63 X 10*3/uL (0.04-0.35); Eosinophils % (A) 4.6 %; HCT 38.4 % (39.6-50.0); HGB 12.7 g/dL (13.0-17.0); Lymphocytes # (A) 0.59 X 10*3/uL (0.90-5.00); Lymphocytes % (A) 4.3 %; MCH 29.8 pg (27.0-32.0); MCHC 33.1 g/dL (32.0-37.0); MCV 90.1 fL (80.0-97.0); Mean Platelet Volume 11.2 fL (9.5-12.2); Monocytes # (A) 0.99 X 10*3/uL (0.20-1.00); Monocytes % (A) 7.3 %; Neutrophils # (A) 11.25 X 10*3/uL (1.80-7.70); Neutrophils % (A) 82.8 %; Platelet Count 205 X 10*3/uL (140-440); RBC 4.26 X 10*6/uL (4.40-5.60); RDW 13.9 % (11.5-14.5)
[2021-01-17 11:28] LABS: Glucose,Whole Blood 108 mg/dL (75-99)
--- NOTE | 2021-01-17 11:48 | P.PN ---
Subjective Progress Note Date: 01/17/21 Principal diagnosis: Metastatic Esophageal Cancer Worsening pain and winded this am. Morphine with relief. Objective - Vital Signs Vital signs: Vital Signs Temp 98.1 F 01/17/21 07:52 Pulse 98 01/17/21 09:29 Resp 18 01/17/21 07:52 BP 138/70 01/17/21 07:52 Pulse Ox 93 L 01/17/21 09:29 Intake & Output 01/16/21 01/17/21 01/17/21 18:59 06:59 18:59 Other: Voiding Method Toilet Toilet # Voids 3 - Exam - Constitutional General appearance: cooperative, mild distress - EENT Eyes: EOMI ENT: hard of hearing, NA/AT - Neck Neck: normal ROM - Respiratory Respiratory: bilateral: diminished, rhonchi - Cardiovascular Rhythm: regular - Gastrointestinal General gastrointestinal: soft, tenderness - Integumentary Integumentary: pale - Neurologic Neurologic: CNII-XII intact - Musculoskeletal Musculoskeletal: generalized weakness, strength equal bilaterally - Psychiatric Psychiatric: A&O x's 3, appropriate affect, intact judgment & insight - Labs CBC & Chem 7: 01/17/21 07:13 01/17/21 07:13 Labs: Abnormal Lab Results - Last 24 Hours (Table) 01/16/21 01/16/21 01/16/21 Range/Units 06:00 12:02 17:14 WBC (4.50-10.00) X 10*3/uL RBC (4.40-5.60) X 10*6/uL Hgb (13.0-17.0) g/dL Hct (39.6-50.0) % Immature Gran # (0.00-0.04) X 10*3/uL Neutrophils # (1.80-7.70) X 10*3/uL Lymphocytes # (0.90-5.00) X 10*3/uL Eosinophils # (0.04-0.35) X 10*3/uL POC Glucose (mg/dL) 116 H 141 H (75-99) mg/dL Procalcitonin 0.33 H (0.02-0.09) ng/mL 01/17/21 01/17/21 01/17/21 Range/Units 06:53 07:13 11:26 WBC 13.60 H (4.50-10.00) X 10*3/uL RBC 4.26 L (4.40-5.60) X 10*6/uL Hgb 12.7 L (13.0-17.0) g/dL Hct 38.4 L (39.6-50.0) % Immature Gran # 0.07 H (0.00-0.04) X 10*3/uL Neutrophils # 11.25 H (1.80-7.70) X 10*3/uL Lymphocytes # 0.59 L (0.90-5.00) X 10*3/uL Eosinophils # 0.63 H (0.04-0.35) X 10*3/uL POC Glucose (mg/dL) 103 H 108 H (75-99) mg/dL Procalcitonin (0.02-0.09) ng/mL Microbiology - Last 24 Hours (Table) 01/16/21 11:16 Gram Stain - Preliminary Sputum Sputum Culture - Preliminary 01/15/21 15:40 Blood Culture - Preliminary Blood No Growth after 24 hours 01/15/21 15:41 Blood Culture - Preliminary Blood No Growth after 24 hours Assessment and Plan (1) 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 They would like to move forward with palliative treatment plan, they understand treatment expectations and intent is not curative, but to reduce symptoms and in hopes to prolong life by control of disease. Consult has been placed for gen surgery for port placement - GI to assess need of esophageal stent and/or PEG (likely both and performed together) - Radiation Oncology with Dr. Mancilla for radiation therapy prior and possibly concurrent - May need to send to Dr. Little Nugent for Esophageal Stent and Peg PLacement (Discussed with Dr. Fitch and will expedite appointment after discharge) We reviewed CT chest bilateral metastatic disease in lungs Discussed with GI, Surgery, and Primary teams PLAN: - GI to evaluate if agree with stent and PEG placement - Radaition Oncology to evaluate for Palliative esophageal radiation, - In Depth discussions with Surgery, Gi and [facility] regarding plan of action and in this situation felt best to move forward with PEG and Port on Wednesday or Wednesday as inpatient and forgo stent. - Chest pain with radiation to back today. Requiring oxygen 3-4 liters. Infectious versus Metastatic diseases versus both. PRN pain medication and bowel regiment added - Thoroughly discussed plan with patient, and daughter Beth. Physician Attest: I have completed the full history and physical and agree with above dictation, dictated as a ascribe.
[2021-01-17 11:59] LABS: African American GFR (CKD) 93.2 (60.0-200.0); Albumin 3.5 g/dL (3.80-4.90); Albumin/Globulin Ratio 1.67 (1.60-3.17); Anion Gap 10.1 mmol/L (4.00-12.00); Calcium 9.6 mg/dL (8.7-10.3); Carbon Dioxide 26.9 mmol/L (21.6-31.8); Globulin 2.1 g/dL (1.6-3.3); Magnesium 2.1 mg/dL (1.5-2.4); Non-African American GFR(CKD) 80.4 (60.0-200.0); Potassium 3.9 mmol/L (3.5-5.5); Total Bilirubin 1.1 mg/dL (0.2-1.2); Total Protein 5.6 g/dL (6.2-8.2)
--- NOTE | 2021-01-17 13:19 | P.PN ---
Subjective Progress Note Date: 01/17/21 Principal diagnosis: Acute hypoxic respiratory failure secondary to metastatic esophageal cancer 80-year-old male, recently diagnosed with esophageal cancer. The patient apparently was diagnosed by one of the gastroenterologists. The patient apparently also was determined to have metastatic esophageal cancer, and lung metastases, and liver metastases. Apparently, the patient did see one of the oncologist today. The plan is to get radiation therapy to a liver lesion to re duce pain, and the potentially go onto chemotherapy. I was asked to see the patient for shortness of breath. The patient denies any chest pain or pressure. Denies any fever or chills. No cough. No phlegm production. Was a heavy smoker for a number of years. 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 The patient denies a prior history of any lung disease. The patient does have a history of previous myocardial infarction, Perez's esophagus, chronic gastroesophageal reflux disease, GI bleed, ulcerative coliti s, kidney stones, previous bypass grafting, heart catheterization with stent, and back surgery. The patient is seen today 01/17/2021 in follow-up on the regular medical floor. He is currently resting in bed. He is still quite short of breath with minimal activity. He is up to 4 L by nasal cannula to maintain O2 saturation in the 90s. He has a loose nonproductive cough. Blood cultures reveal no growth. Sputum culture pending. White count 13.6. Hemoglobin 12.7. Sodium 139. Potassium 3.9. Creatinine 0.9. AST 78. ALT 77. Objective - Vital Signs Vital signs: Vital Signs Temp 98.1 F 01/17/21 07:52 Pulse 98 01/17/21 09:29 Resp 18 01/17/21 07:52 BP 138/70 01/17/21 07:52 Pulse Ox 93 L 01/17/21 09:29 Intake & Output 01/16/21 01/17/21 01/17/21 18:59 06:59 18:59 Other: Voiding Method Toilet Toilet # Voids 3 - Exam GENERAL EXAM: Alert, pleasant 80-year-old gentleman, on 4 L nasal cannula, in mild respiratory distress. HEAD: Normocephalic. EYES: Normal reaction of pupils, equal size. NOSE: Clear with pink turbinates. THROAT: No erythema or exudates. NECK: No masses, no JVD. CHEST: No chest wall deformity. LUNGS: Equal air entry with coarse rhonchi bilaterally. CVS: S1 and S2 normal with no audible murmur, regular rhythm. ABDOMEN: No hepatosplenomegaly, normal bowel sounds, no guarding or rigidity. SPINE: No scoliosis or deformity SKIN: No rashes CENTRAL NERVOUS SYSTEM: No focal deficits, tone is normal in all 4 extremities. EXTREMITIES: There is no peripheral edema. No clubbing, no cyanosis. Peripheral pulses are intact. - Labs CBC & Chem 7: 01/17/21 07:13 01/17/21 07:13 Labs: Abnormal Lab Results - Last 24 Hours (Table) 01/16/21 01/16/21 01/17/21 Range/Units 06:00 17:14 06:53 WBC (4.50-10.00) X 10*3/uL RBC (4.40-5.60) X 10*6/uL Hgb (13.0-17.0) g/dL Hct (39.6-50.0) % Immature Gran # (0.00-0.04) X 10*3/uL Neutrophils # (1.80-7.70) X 10*3/uL Lymphocytes # (0.90-5.00) X 10*3/uL Eosinophils # (0.04-0.35) X 10*3/uL BUN/Creatinine Ratio (12.00-20.00) Ratio POC Glucose (mg/dL) 141 H 103 H (75-99) mg/dL AST (14-35) U/L ALT (10-49) U/L Alkaline Phosphatase (41-126) U/L Total Protein (6.2-8.2) g/dL Albumin (3.80-4.90) g/dL Procalcitonin 0.33 H (0.02-0.09) ng/mL 01/17/21 01/17/21 01/17/21 Range/Units 07:13 07:13 11:26 WBC 13.60 H (4.50-10.00) X 10*3/uL RBC 4.26 L (4.40-5.60) X 10*6/uL Hgb 12.7 L (13.0-17.0) g/dL Hct 38.4 L (39.6-50.0) % Immature Gran # 0.07 H (0.00-0.04) X 10*3/uL Neutrophils # 11.25 H (1.80-7.70) X 10*3/uL Lymphocytes # 0.59 L (0.90-5.00) X 10*3/uL Eosinophils # 0.63 H (0.04-0.35) X 10*3/uL BUN/Creatinine Ratio 30.00 H (12.00-20.00) Ratio POC Glucose (mg/dL) 108 H (75-99) mg/dL AST 78 H (14-35) U/L ALT 77 H (10-49) U/L Alkaline Phosphatase 175 H (41-126) U/L Total Protein 5.6 L (6.2-8.2) g/dL Albumin 3.50 L (3.80-4.90) g/dL Procalcitonin (0.02-0.09) ng/mL Microbiology - Last 24 Hours (Table) 01/16/21 11:16 Gram Stain - Preliminary Sputum Sputum Culture - Preliminary 01/15/21 15:40 Blood Culture - Preliminary Blood No Growth after 24 hours 01/15/21 15:41 Blood Culture - Preliminary Blood No Growth after 24 hours Assessment and Plan Assessment: 1 Diffusely metastatic esophageal cancer, recently diagnosed, with liver and lung metastasis. 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 3 Prior history of tobacco use, with possible underlying COPD. 4 Dysphagia secondary to esophageal tumor 5 History of myocardial infarction, status post bypass grafting. 6 History of CAD with previous stent placement. 7 History of Peerz's esophagus. 8 Chronic acid reflux disease. 9 History of ulcerative colitis. 10 History of GI bleed. 11 History of kidney stones. Plan: The patient was seen and evaluated by Dr. Santiago Requiring higher FiO2 to maintain O2 saturations in the 90s Follow-up chest x-ray in the a.m. The patient and his family are agreeable to palliative care Mediport to be placed May need esophageal stent placement Medical and radiation oncology consulted Overall prognosis is quite guarded and poor We will continue to follow I, the cosigning physician, performed a history & physical examination of the patient. Lungs sounds lateral coarse rhonchi. Maintaining good O2 saturations in the 90s on 4 L/m per nasal cannula. I discussed the assessment and plan of care with my nurse practitioner, Opal Mohr. I attest to the above note as dictated by her.
--- NOTE | 2021-01-17 14:39 | P.PN ---
Subjective Progress Note Date: 01/17/21 80-year-old male came in with comments of shortness of breath. Patient was recently diagnosed with metastatic esophageal cancer patient is a supposed to be evaluated by oncology today. Patient is not started on any chemotherapy at this time. Patient denied any significant orthopnea patient is presently on 2 L of oxygen usually doesn't use any oxygen patient denied any fever chills was comparing of cough without any significant sputum production denied any lightheadedness. Patient doesn't have any history of heart failure patient has a smoking history years ago. Patient has history of coronary artery disease denied any history of heart failure doesn't use any oxygen at home denied any history of COPD. Patient had a CT angios the chest which did not show any pulmonary embolism which did show significant metastatic disease and possible pulmonary edema there is no obvious lobar infiltrate patient has bilateral pleural effusions as well, patient's BNP is not elevated. 01/16/2021 Patient is seen in follow-up and is currently being evaluated by pulmonary has also been seen by oncology with multiple family members at the bedside. Patient continues to have shortness of breath and is currently maintained on 3 L via nasal cannula with 91% oxygen saturation. Patient has breathing treatments along with IV Lasix and will continue. White blood count improved at 12.9 hemoglobin is stable at 12.9, sodium is 136 and current creatinine is 0.94 and will continue with Lasix and monitor kidney functions closely. Patient also had elevated lactic acid which is slowly trending down. patient also maintained on IV antibiotics in the form of Zosyn and will continue. Awaiting oncology report as the family mentioned he is to be receiving radiation and possible chemotherapy. 01/17/2021 Patient is seen and evaluated in follow-up this morning currently having increasing shortness of breath along with midsternal chest discomfort that is radiating around the right side and is being closely monitored. Multiple medical consultations including pulmonary, oncology following and radiation onco logy along with surgery has been consulted for further evaluation to discuss palliative options is recommended by oncology. White blood count slightly up at 13.6 hemoglobin is stable at 12.7, sodium is 139 with a potassium of 3.9 and current creatinine is 0.9. Liver function slightly improved. Discussed in detail with oncology and working on possible Mediport placement and the need for an esophageal stent and/or PEG tube placement to continue with palliative treatment moving forward. Dr. Pat surgery following and plans are for Mediport placement and possible PEG tube placement early next week if patient is not tolerating oral. Repeat chest x-ray ordered for the morning and will contin ue to monitor closely. Patient is afebrile. Patient continues to have difficulty with swallowing and will continue with pure as tolerated. Review of systems: Constitutional: reports of fatigue, no reports of fever, or chills Cardiovascular: No reports of chest pain or palpitations Respiratory: reports of continued worsening shortness of breath and difficulty in breathing GI: No reports of nausea, vomiting, or diarrhea : No reports of dysuria or retention Neurovascular: Reports generalized weakness All medications have been reviewed Objective - Vital Signs Vital signs: Vital Signs Temp 98.1 F 01/17/21 07:52 Pulse 98 01/17/21 09:29 Resp 18 01/17/21 07:52 BP 138/70 01/17/21 07:52 Pulse Ox 93 L 01/17/21 09:29 Intake & Output 01/16/21 01/17/21 01/17/21 18:59 06:59 18:59 Other: Voiding Method Toilet Toilet # Voids 3 - Exam GENERAL: The patient is alert and oriented x3, not in any acute distress. Well developed, well nourished. HEENT: Pupils are round and equally reacting to light. EOMI. No scleral icterus. No conjunctival pallor. Normocephalic, atraumatic. No pharyngeal erythema. No thyromegaly. CARDIOVASCULAR: S1 and S2 present. No murmurs, rubs, or gallops. PULMONARY: Diminished breath sounds bilaterally worse on the right than the left with bilateral coarse ronchi noted ABDOMEN: Soft, nontender, mildly tender in the right upper quadrant that radiates around his side, normoactive bowel sounds. No palpable organomegaly. MUSCULOSKELETAL: No joint swelling or deformity. EXTREMITIES: No cyanosis, clubbing, or pedal edema. NEUROLOGICAL: Gross neurological examination did not reveal any focal deficits. Diffusely weak SKIN: No rashes. - Labs CBC & Chem 7: 01/17/21 07:13 01/17/21 07:13 Labs: Abnormal Lab Results - Last 24 Hours (Table) 01/16/21 01/16/21 01/16/21 Range/Units 06:00 12:02 17:14 POC Glucose (mg/dL) 116 H 141 H (75-99) mg/dL Procalcitonin 0.33 H (0.02-0.09) ng/mL 01/17/21 Range/Units 06:53 POC Glucose (mg/dL) 103 H (75-99) mg/dL Procalcitonin (0.02-0.09) ng/mL Microbiology - Last 24 Hours (Table) 01/16/21 11:16 Gram Stain - Preliminary Sputum Sputum Culture - Preliminary 01/15/21 15:40 Blood Culture - Preliminary Blood No Growth after 24 hours 01/15/21 15:41 Blood Culture - Preliminary Blood No Growth after 24 hours Assessment and Plan Assessment: -Shortness of breath with acute hypoxemic respiratory failure 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 IV antibiotics and IV Lasix discontinued. Patient continues with shortness of breath requiring more oxygen with pulmonary and oncology following. GI, surgery, radiation oncology consulted. Plans are for possible palliative radiation/chemotherapy and awaiting consults. Discussed at length with oncology and Dr. Pat with surgery has evaluated the patient for Mediport placement early next week and further discussions are being had with Shannon Nugent for possible esophageal stent and/or PEG tube as patient continues to have difficulty in swallowing and dysphagia related to esophageal cancer although is currently tolerating pured diet. Patient is continued on breathing treatments as well and continues on 4 L of oxygen and continues to be short of breath. Repeat chest x-ray in the morning. Pulmonary also following. Will repeat a.m. labs and continue to monitor closely.
[2021-01-17 16:33] LABS: Glucose,Whole Blood 155 mg/dL (75-99)
[2021-01-17] MEDS: SODIUM CHLORIDE 0.9% 1,000 ML IV SCH (18:33)
[2021-01-17] MEDS: ATORVASTATIN 80 MG TAB PO SCH (21:25)
[2021-01-17] MEDS: PANTOPRAZOLE 40 MG/10 ML VIAL IVP SCH (21:25)
[2021-01-18 07:00] LABS: Basophils # (A) 0.1 k/uL (0-0.2); Basophils % (A) 0 %; Eosinophils # (A) 0.7 k/uL (0-0.7); Eosinophils % (A) 5 %; HCT 38.6 % (39.0-53.0); HGB 12.8 gm/dL (13.0-17.5); Lymphocytes # (A) 0.4 k/uL (1.0-4.8); Lymphocytes % (A) 3 %; MCH 29.7 pg (25.0-35.0); MCHC 33.2 g/dL (31.0-37.0); MCV 89.4 fL (80.0-100.0); Mean Platelet Volume 8.3; Monocytes % (A) 7 %; Neutrophils # (A) 12.4 k/uL (1.3-7.7); Neutrophils % (A) 84 %; Platelet Count 193 k/uL (150-450); RBC 4.32 m/uL (4.30-5.90); RDW 13.6 % (11.5-15.5); WBC 14.7 k/uL (3.8-10.6)
[2021-01-18 07:11] LABS: ALT 67 U/L (4-49); AST 92 U/L (17-59); African American GFR (CKD) >90 (>60 ml/min/1.73 sqM); Albumin/Globulin Ratio 1.1; Alkaline Phosphatase 200 U/L (38-126); Anion Gap 7 mmol/L; Blood Urea Nitrogen 29 mg/dL (9-20); Calcium 9.9 mg/dL (8.4-10.2); Carbon Dioxide 28 mmol/L (22-30); Chloride 102 mmol/L (98-107); Globulin 2.7 g/dL; Glucose 113 mg/dL (74-99); Non-African American GFR(CKD) 82 (>60 ml/min/1.73 sqM); Sodium 137 mmol/L (137-145); Total Bilirubin 0.9 mg/dL (0.2-1.3); Total Protein 5.7 g/dL (6.3-8.2)
--- NOTE | 2021-01-18 07:17 | XR ---
EXAMINATION TYPE: XR chest 1V portable DATE OF EXAM: 01/18/2021 CLINICAL HISTORY: Difficulty breathing and pneumonia progress study. TECHNIQUE: Single AP portable upright view of the chest is obtained. COMPARISON: Chest x-ray from 2 days earlier and older studies. CT chest 3 days ago. FINDINGS: Overlying sternal wires and mediastinal clips redemonstrated. Cardiac silhouette size stab le and upper limits of normal. Persistent small left pleural effusion. Bilateral reticulonodular mult ifocal opacities redemonstrated. Osseous structures are intact. Bilateral hilar prominence correspon ding to adenopathy noted. Underlying emphysematous change redemonstrated. IMPRESSION: Cardiomegaly with small left greater than right pleural effusions consistent with CHF exa cerbation or failure. Chronic emphysematous change with bilateral reticulonodular opacities and hilar adenopathy could reflect product of neoplasm and/or atypical infection. Correlate clinically. No sig nificant change from most recent studies.
[2021-01-18] MEDS: MORPHINE SULFATE 2 MG/ML SYRINGE IVP PRN ×3 (07:21→21:07)
[2021-01-18] MEDS: IPRATROPIUM-ALBUTEROL 3 ML NEB INHALATION SCH ×4 (07:22→21:11)
[2021-01-18 07:26] LABS: Glucose,Whole Blood 119 mg/dL (75-99)
[2021-01-18] MEDS ORDERED: FUROSEMIDE 10 MG/ML 4 ML VIAL IV STA (07:40)
--- NOTE | 2021-01-18 09:37 | P.CONS ---
History of Present Illness - Reason for Consult Consult date: 01/17/21 Esophageal cancer Requesting physician: Yanni Barnett - Chief Complaint Shortness of breath - History of Present Illness 80-year-old male with multiple medical comorbidities including Elias's esophagus, history of nephrolithiasis, and recent diagnosis of esophageal cancer who presented to the hospital for constellation of symptoms including difficulty breathing. 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 The patient presented to the hospital with worsening shortness of breath. He denies any nausea or vomiting. He does report decreased oral intake. He also reports constipation which she feels is secondary to the decreased oral intake. No abdominal pain reported. The patient has been evaluated by the surgical service with plans for Mediport placement and PEG tube placement. The distal esophageal mass was able to be traversed with the endoscope on prior examination. Review of Systems REVIEW OF SYSTEMS: CONSTITUTIONAL: Denies any fevers, chills, weight change or fatigue. CARDIOVASCULAR: Denies any chest pain, palpitations high or low blood pressures RESPIRATORY: Denies any shortness of breath, hemoptysis or cough. GENITOURINARY: No dysuria or hematuria. MUSCULOSKELETAL: No weakness reported. SKIN: Denies any new rashes or lesions, jaundice or pallor. PSYCHIATRIC: Denies any depression or anxiety. NEUROLOGY: Denies headache, denies any new focal deficits. EARS/NOSE/THROAT: No recent hearing change, congestion, nasal discharge or sore throat. EYES: No pain in eyes, discharge or change in vision. GASTROINTESTINAL: As per HPI. Past Medical History Past Medical History: Cancer, Myocardial Infarction (LA) Additional Past Medical History / Comment(s): Lower GI bleed/elias's esophagus with cautery, ulcerative colitis, hypotension, occasional lower back pain, nephrolithiasis/surgically removed. Last Myocardial Infarction Date:: 1997 History of Any Multi-Drug Resistant Organisms: None Reported Past Surgical History: Back Surgery, Coronary Bypass/CABG, Heart Catheterization, Heart Catheterization With Stent Additional Past Surgical History / Comment(s): 1997 CABG 4 vessel, PCI with stent 2019, EGD and cauterized Elias's esophagus bleed, colonoscoy, lithotripsy, L leg varicose vein surgery, 2 lower back fusions Past Anesthesia/Blood Transfusion Reactions: No Reported Reaction Additional Past Anesthesia/Blood Transfusion Reaction / Comm: Pt has received blood in past without reaction. Date of Last Stent Placement:: 2018 Past Psychological History: No Psychological Hx Reported Smoking Status: Former smoker Past Alcohol Use History: None Reported Past Drug Use History: None Reported - Past Family History Father Additional Family Medical History / Comment(s): Father by drowning when pt was 3 yrs old. Mother Family Medical History: Cancer Additional Family Medical History / Comment(s): Mother lived into her 90s. Type of cancer was "female". Medications and Allergies Home Medications Medication Instructions Recorded Confirmed Type Aspirin EC [Ecotrin Low Dose] 81 mg PO DAILY 01/02/21 01/15/21 History Atorvastatin Calcium [Lipitor] 80 mg PO HS 01/02/21 01/15/21 History Ferrous Sulfate [Iron (65 MG 325 mg PO DAILY 01/02/21 01/15/21 History Elemental)] Metoprolol Tartrate [Lopressor] 12.5 mg PO BID 01/02/21 01/15/21 History Multivitamins, Thera [Multivitamin 1 tab PO DAILY 01/02/21 01/15/21 History (formulary)] Pantoprazole Sodium [Protonix] 40 mg PO BID@1000,2200 01/02/21 01/15/21 History Allergies Allergy/AdvReac Type Severity Reaction Status Date / Time No Known Allergies Allergy Verified 01/15/21 14:15 Physical Exam Vitals: Vital Signs Temp Pulse Pulse Resp BP Pulse Ox 01/17/21 09:29 98 93 L 01/17/21 08:51 98 01/17/21 08:39 102 H 01/17/21 07:52 98.1 F 90 18 138/70 90 L 01/17/21 01:51 98.7 F 96 18 125/63 90 L 01/16/21 19:36 98.9 F 98 16 141/77 90 L 01/16/21 16:07 88 01/16/21 15:54 88 01/16/21 14:00 98.2 F 90 16 136/67 92 L Intake and Output 01/16/21 01/17/21 01/17/21 22:59 06:59 14:59 Other: Voiding Method Toilet Toilet # Voids 3 On physical examination, patient appears comfortable in no apparent distress. HEAD: Normocephalic, atraumatic. EYES: No scleral icterus. No conjunctival injection. MOUTH: No lesions, tongue midline. NECK: Trachea midline, no gross abnormalities. CHEST: Clear to auscultation with no wheezing or rhonchi appreciated. HEART: S1-S2 appreciated. ABDOMEN: Soft, thin and nontender. Bowel sounds are positive. No organomegaly. No guarding or rigidity. EXTREMITIES: No pedal edema. SKIN: No rashes, no jaundice. NEUROLOGIC: Alert and oriented x3. No focal deficits. Results CBC & Chem 7: 01/18/21 06:09 01/18/21 06:09 Labs: Abnormal Lab Results - Last 24 Hours (Table) 01/16/21 01/16/21 01/17/21 Range/Units 06:00 17:14 06:53 WBC (4.50-10.00) X 10*3/uL RBC (4.40-5.60) X 10*6/uL Hgb (13.0-17.0) g/dL Hct (39.6-50.0) % Immature Gran # (0.00-0.04) X 10*3/uL Neutrophils # (1.80-7.70) X 10*3/uL Lymphocytes # (0.90-5.00) X 10*3/uL Eosinophils # (0.04-0.35) X 10*3/uL BUN/Creatinine Ratio (12.00-20.00) Ratio POC Glucose (mg/dL) 141 H 103 H (75-99) mg/dL AST (14-35) U/L ALT (10-49) U/L Alkaline Phosphatase (41-126) U/L Total Protein (6.2-8.2) g/dL Albumin (3.80-4.90) g/dL Procalcitonin 0.33 H (0.02-0.09) ng/mL 01/17/21 01/17/21 01/17/21 Range/Units 07:13 07:13 11:26 WBC 13.60 H (4.50-10.00) X 10*3/uL RBC 4.26 L (4.40-5.60) X 10*6/uL Hgb 12.7 L (13.0-17.0) g/dL Hct 38.4 L (39.6-50.0) % Immature Gran # 0.07 H (0.00-0.04) X 10*3/uL Neutrophils # 11.25 H (1.80-7.70) X 10*3/uL Lymphocytes # 0.59 L (0.90-5.00) X 10*3/uL Eosinophils # 0.63 H (0.04-0.35) X 10*3/uL BUN/Creatinine Ratio 30.00 H (12.00-20.00) Ratio POC Glucose (mg/dL) 108 H (75-99) mg/dL AST 78 H (14-35) U/L ALT 77 H (10-49) U/L Alkaline Phosphatase 175 H (41-126) U/L Total Protein 5.6 L (6.2-8.2) g/dL Albumin 3.50 L (3.80-4.90) g/dL Procalcitonin (0.02-0.09) ng/mL Microbiology - Last 24 Hours (Table) 01/16/21 11:16 Gram Stain - Preliminary Sputum Sputum Culture - Preliminary 01/15/21 15:40 Blood Culture - Preliminary Blood No Growth after 24 hours 01/15/21 15:41 Blood Culture - Preliminary Blood No Growth after 24 hours Chest x-ray: report reviewed Assessment and Plan (1) 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 Patient recently had EGD on 01/04/21 with findings of distal esophageal mass with luminal narrowing able to be traversed with the endoscope with biopsies consistent with adenocarcinoma subsequently found to have suggestion of metastatic disease to the liver and lungs. Currently patient is tolerating some oral intake. Plan is for PEG tube placement as well as Mediport placement. Current Visit: Yes Status: Acute Code(s): C15.9 - MALIGNANT NEOPLASM OF ESOPHAGUS, UNSPECIFIED; C78.00 - SECONDARY MALIGNANT NEOPLASM OF UNSPECIFIED LUNG SNOMED Code(s): 896573068 (2) Esophageal neoplasm Current Visit: No Status: Acute Code(s): D49.0 - NEOPLASM OF UNSPECIFIED BEHAVIOR OF DIGESTIVE SYSTEM SNOMED Code(s): 122028777 (3) Liver metastases Current Visit: No Status: Acute Code(s): C78.7 - SECONDARY MALIG NEOPLASM OF LIVER AND INTRAHEPATIC BILE DUCT SNOMED Code(s): 02710517 Plan: Supportive care Okay for modified chopped or pured diet as tolerated with extensive discussion with the patient regarding small bites, sitting upright while eating, not lying down after eating, and sips of liquid in between bites of solid food Agree with plan for Mediport placement and PEG tube, to be scheduled with the surgical service Continue other management of adenocarcinoma as per oncology recommendations If progressive dysphagia occurs would recommend referral to tertiary center for evaluation of stent placement Continue other medical management per primary team Thank you for allowing us to participate in the care of the patient
[2021-01-18] MEDS: SENNOSIDES 8.6 MG TAB PO SCH ×2 (09:50→21:07)
[2021-01-18] MEDS: MULTIVITAMINS, THERA 1 EACH TAB PO SCH (09:50)
[2021-01-18] MEDS: METOPROLOL TARTRATE 12.5 MG TAB PO SCH ×2 (09:50→21:07)
[2021-01-18] MEDS: ENOXAPARIN 40 MG/0.4 ML SYRINGE SQ SCH (09:50)
[2021-01-18] MEDS: PANTOPRAZOLE 40 MG/10 ML VIAL IVP SCH ×2 (09:50→21:07)
[2021-01-18] MEDS: SODIUM CHLORIDE 0.9% 1,000 ML IV SCH (10:53)
[2021-01-18 11:35] LABS: Glucose,Whole Blood 140 mg/dL (75-99)
--- NOTE | 2021-01-18 12:20 | P.PN ---
Subjective Progress Note Date: 01/18/21 Principal diagnosis: Acute hypoxic respiratory failure secondary to metastatic esophageal cancer 80-year-old male, recently diagnosed with esophageal cancer. The patient apparently was diagnosed by one of the gastroenterologists. The patient apparently also was determined to have metastatic esophageal cancer, and lung metastases, and liver metastases. Apparently, the patient did see one of the oncologist today. The plan is to get radiation therapy to a liver lesion to re duce pain, and the potentially go onto chemotherapy. I was asked to see the patient for shortness of breath. The patient denies any chest pain or pressure. Denies any fever or chills. No cough. No phlegm production. Was a heavy smoker for a number of years. 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 The patient denies a prior history of any lung disease. The patient does have a history of previous myocardial infarction, Perez's esophagus, chronic gastroesophageal reflux disease, GI bleed, ulcerative coliti s, kidney stones, previous bypass grafting, heart catheterization with stent, and back surgery. The patient is seen today 01/17/2021 in follow-up on the regular medical floor. He is currently resting in bed. He is still quite short of breath with minimal activity. He is up to 4 L by nasal cannula to maintain O2 saturation in the 90s. He has a loose nonproductive cough. Blood cultures reveal no growth. Sputum culture pending. White count 13.6. Hemoglobin 12.7. Sodium 139. Potassium 3.9. Creatinine 0.9. AST 78. ALT 77. The patient is seen today 01/18/2021 in follow-up on the regular medical floor. He is currently resting in bed. His oxygen requirements have gone up. Currentl y back on 5 L high flow nasal cannula. Chest x-ray shows cardiomegaly with small left greater than right pleural effusions consistent with CHF exacerbation or failure. Chronic emphysematous changes with bilateral reticulonodular opacities and hilar adenopathy could reflect neoplasm/atypical infection. He was given IV Lasix this morning. Blood culture reveals no growth. Sputum culture reveals no growth. White count 14.7. Hemoglobin 12.8. Sodium 137. Potassium 4.0. Creatinine 0.86. AST 92. ALT 67. He remains on Lovenox for DVT prophylaxis. Objective - Vital Signs Vital signs: Vital Signs Temp 97.5 F L 01/18/21 07:47 Pulse 100 01/18/21 11:21 Resp 25 H 01/18/21 07:47 BP 156/83 01/18/21 07:47 Pulse Ox 90 L 01/18/21 10:43 Intake & Output 01/17/21 01/18/21 01/18/21 18:59 06:59 18:59 Intake Total 450 Output Total 880 Balance 450 -880 Intake: Oral 450 Output: Urine 880 Other: Voiding Method Toilet Toilet Urinal Urinal # Voids 2 1 - Exam GENERAL EXAM: Alert, pleasant 80-year-old gentleman, on 5 L nasal cannula, in mild respiratory distress. HEAD: Normocephalic. EYES: Normal reaction of pupils, equal size. NOSE: Clear with pink turbinates. THROAT: No erythema or exudates. NECK: No masses, no JVD. CHEST: No chest wall deformity. LUNGS: Equal air entry with coarse rhonchi bilaterally. CVS: S1 and S2 normal with no audible murmur, regular rhythm. ABDOMEN: No hepatosplenomegaly, normal bowel sounds, no guarding or rigidity. SPINE: No scoliosis or deformity SKIN: No rashes CENTRAL NERVOUS SYSTEM: No focal deficits, tone is normal in all 4 extremities. EXTREMITIES: There is no peripheral edema. No clubbing, no cyanosis. Peripheral pulses are intact. - Labs CBC & Chem 7: 01/18/21 06:09 01/18/21 06:09 Labs: Abnormal Lab Results - Last 24 Hours (Table) 01/17/21 01/18/21 01/18/21 Range/Units 16:31 06:09 06:09 WBC 14.7 H (3.8-10.6) k/uL Hgb 12.8 L (13.0-17.5) gm/dL Hct 38.6 L (39.0-53.0) % Neutrophils # 12.4 H (1.3-7.7) k/uL Lymphocytes # 0.4 L (1.0-4.8) k/uL BUN 29 H (9-20) mg/dL Glucose 113 H (74-99) mg/dL POC Glucose (mg/dL) 155 H (75-99) mg/dL AST 92 H (17-59) U/L ALT 67 H (4-49) U/L Alkaline Phosphatase 200 H (38-126) U/L Total Protein 5.7 L (6.3-8.2) g/dL Albumin 3.0 L (3.5-5.0) g/dL 01/18/21 01/18/21 Range/Units 07:25 11:33 WBC (3.8-10.6) k/uL Hgb (13.0-17.5) gm/dL Hct (39.0-53.0) % Neutrophils # (1.3-7.7) k/uL Lymphocytes # (1.0-4.8) k/uL BUN (9-20) mg/dL Glucose (74-99) mg/dL POC Glucose (mg/dL) 119 H 140 H (75-99) mg/dL AST (17-59) U/L ALT (4-49) U/L Alkaline Phosphatase (38-126) U/L Total Protein (6.3-8.2) g/dL Albumin (3.5-5.0) g/dL Microbiology - Last 24 Hours (Table) 01/16/21 11:16 Gram Stain - Final Sputum Sputum Culture - Final 01/15/21 15:40 Blood Culture - Preliminary Blood No Growth after 48 hours 01/15/21 15:41 Blood Culture - Preliminary Blood No Growth after 48 hours Assessment and Plan Assessment: 1 Diffusely metastatic esophageal cancer, recently diagnosed, with liver and lung metastasis. 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 3 Prior history of tobacco use, with possible underlying COPD. 4 Dysphagia secondary to esophageal tumor 5 Acute exacerbation of systolic congestive heart failure 6 History of CAD with previous coronary artery bypass grafting, stent placement. 7 History of Perez's esophagus. 8 Chronic acid reflux disease. 9 History of ulcerative colitis. 10 History of GI bleed. 11 History of kidney stones. Plan: The patient was seen and evaluated by Dr. Santiago Requiring higher FiO2 to maintain O2 saturations in the 90s Chest x-ray reviewed Was given Lasix earlier this morning Mediport to be placed, PEG tube to be placed May need esophageal stent placement at tertiary center if worsening dysphagia Overall prognosis is quite guarded and poor DO NOT RESUSCITATE/DO NOT INTUBATE CODE STATUS should be considered We will continue to follow I, the cosigning physician, performed a history & physical examination of the patient. Lungs sounds with bilateral coarse rhonchi. Maintaining O2 saturations in the 90s on 5 L/m per nasal cannula. I discussed the assessment and plan of care with my nurse practitioner, Opal Mohr. I attest to the above note as dictated by her.
--- NOTE | 2021-01-18 12:20 | P.PN ---
Subjective Progress Note Date: 01/18/21 Principal diagnosis: Metastatic adenocarcinoma of the esophagus 80-year-old male lying in bed with no acute complaints. Tolerated ensuring a small amount of breakfast this morning. No acute complaints. Objective - Vital Signs Vital signs: Vital Signs Temp 97.5 F L 01/18/21 07:47 Pulse 109 H 01/18/21 07:47 Resp 25 H 01/18/21 07:47 BP 156/83 01/18/21 07:47 Pulse Ox 95 01/18/21 07:47 Intake & Output 01/17/21 01/18/21 01/18/21 18:59 06:59 18:59 Intake Total 450 Output Total 880 Balance 450 -880 Intake: Oral 450 Output: Urine 880 Other: Voiding Method Toilet Toilet Urinal # Voids 2 1 - Exam On physical examination, patient appears comfortable in no apparent distress. HEAD: Normocephalic, atraumatic. EYES: No scleral icterus. No conjunctival injection. MOUTH: No lesions, tongue midline. NECK: Trachea midline, no gross abnormalities. ABDOMEN: Soft, nontender to palpation. Bowel sounds are positive. No organomegaly. No guarding or rigidity. EXTREMITIES: No pedal edema. SKIN: No rashes, no jaundice. NEUROLOGIC: Alert and oriented x3. No focal deficits. - Labs CBC & Chem 7: 01/18/21 06:09 01/18/21 06:09 Labs: Abnormal Lab Results - Last 24 Hours (Table) 01/17/21 01/17/21 01/17/21 Range/Units 07:13 07:13 11:26 WBC 13.60 H (4.50-10.00) X 10*3/uL RBC 4.26 L (4.40-5.60) X 10*6/uL Hgb 12.7 L (13.0-17.0) g/dL Hct 38.4 L (39.6-50.0) % Immature Gran # 0.07 H (0.00-0.04) X 10*3/uL Neutrophils # 11.25 H (1.80-7.70) X 10*3/uL Lymphocytes # 0.59 L (0.90-5.00) X 10*3/uL Eosinophils # 0.63 H (0.04-0.35) X 10*3/uL BUN (9-20) mg/dL BUN/Creatinine Ratio 30.00 H (12.00-20.00) Ratio Glucose (74-99) mg/dL POC Glucose (mg/dL) 108 H (75-99) mg/dL AST 78 H (14-35) U/L ALT 77 H (10-49) U/L Alkaline Phosphatase 175 H (41-126) U/L Total Protein 5.6 L (6.2-8.2) g/dL Albumin 3.50 L (3.80-4.90) g/dL 01/17/21 01/18/21 01/18/21 Range/Units 16:31 06:09 06:09 WBC 14.7 H (4.50-10.00) X 10*3/uL RBC (4.40-5.60) X 10*6/uL Hgb 12.8 L (13.0-17.0) g/dL Hct 38.6 L (39.6-50.0) % Immature Gran # (0.00-0.04) X 10*3/uL Neutrophils # 12.4 H (1.80-7.70) X 10*3/uL Lymphocytes # 0.4 L (0.90-5.00) X 10*3/uL Eosinophils # (0.04-0.35) X 10*3/uL BUN 29 H (9-20) mg/dL BUN/Creatinine Ratio (12.00-20.00) Ratio Glucose 113 H (74-99) mg/dL POC Glucose (mg/dL) 155 H (75-99) mg/dL AST 92 H (14-35) U/L ALT 67 H (10-49) U/L Alkaline Phosphatase 200 H (41-126) U/L Total Protein 5.7 L (6.2-8.2) g/dL Albumin 3.0 L (3.80-4.90) g/dL 01/18/21 Range/Units 07:25 WBC (4.50-10.00) X 10*3/uL RBC (4.40-5.60) X 10*6/uL Hgb (13.0-17.0) g/dL Hct (39.6-50.0) % Immature Gran # (0.00-0.04) X 10*3/uL Neutrophils # (1.80-7.70) X 10*3/uL Lymphocytes # (0.90-5.00) X 10*3/uL Eosinophils # (0.04-0.35) X 10*3/uL BUN (9-20) mg/dL BUN/Creatinine Ratio (12.00-20.00) Ratio Glucose (74-99) mg/dL POC Glucose (mg/dL) 119 H (75-99) mg/dL AST (14-35) U/L ALT (10-49) U/L Alkaline Phosphatase (41-126) U/L Total Protein (6.2-8.2) g/dL Albumin (3.80-4.90) g/dL Microbiology - Last 24 Hours (Table) 01/15/21 15:40 Blood Culture - Preliminary Blood No Growth after 48 hours 01/15/21 15:41 Blood Culture - Preliminary Blood No Growth after 48 hours 01/16/21 11:16 Gram Stain - Preliminary Sputum Sputum Culture - Preliminary Assessment and Plan (1) 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 Patient recently had EGD on 01/04/21 with findings of distal esophageal mass with luminal narrowing able to be traversed with the endoscope with biopsies consistent with adenocarcinoma subsequently found to have suggestion of metastatic disease to the liver and lungs. Currently patient is tolerating some oral intake. Plan is for PEG tube placement as well as Mediport placement. Current Visit: Yes Status: Acute Code(s): C15.9 - MALIGNANT NEOPLASM OF ESOPHAGUS, UNSPECIFIED; C78.00 - SECONDARY MALIGNANT NEOPLASM OF UNSPECIFIED LUNG SNOMED Code(s): 239984176 (2) Esophageal neoplasm Current Visit: No Status: Acute Code(s): D49.0 - NEOPLASM OF UNSPECIFIED BEHAVIOR OF DIGESTIVE SYSTEM SNOMED Code(s): 194315855 (3) Liver metastases Current Visit: No Status: Acute Code(s): C78.7 - SECONDARY MALIG NEOPLASM OF LIVER AND INTRAHEPATIC BILE DUCT SNOMED Code(s): 05689562 Plan: Supportive care Okay for modified chopped or pured diet as tolerated with extensive discussion with the patient regarding small bites, sitting upright while eating, not lying down after eating, and sips of liquid in between bites of solid food Agree with plan for Mediport placement and PEG tube, to be scheduled with the surgical service Continue other management of adenocarcinoma as per oncology recommendations If progressive dysphagia occurs would recommend referral to tertiary center for evaluation of stent placement Continue other medical management per primary team Thank you for allowing us to participate in the care of the patient
--- NOTE | 2021-01-18 13:45 | P.PN ---
Subjective Progress Note Date: 01/18/21 Patient complaining of some abdominal pain today, constipation. Continues to report shortness of breath. Plan for PEG tube placement on Wednesday/Wednesday, MediPort placement as an outpatient. Objective - Vital Signs Vital signs: Vital Signs Temp 97.5 F L 01/18/21 07:47 Pulse 100 01/18/21 11:21 Resp 25 H 01/18/21 07:47 BP 156/83 01/18/21 07:47 Pulse Ox 90 L 01/18/21 10:43 Intake & Output 01/17/21 01/18/21 01/18/21 18:59 06:59 18:59 Intake Total 450 Output Total 880 Balance 450 -880 Intake: Oral 450 Output: Urine 880 Other: Voiding Method Toilet Toilet Urinal Urinal # Voids 2 1 - Exam Gen: awake, alert HEENT: normocephalic, atraumatic, good hearing acuity, moist mucous membranes Resp: Mild distress from dyspnea, cannot speak in full sentences, mild use of accessory muscles, bilateral posterior crackles CVS: good distal perfusion x 4, regular rate and rhythm without murmurs GI: Tender palpation in the epigastrium, bloated, soft : no SPT, no CVAT, brewer catheter is present MSK: no pitting edema, no clubbing Neuro: non-focal, moving all extremities Psych: cooperative, euthymic mood - Labs CBC & Chem 7: 01/18/21 06:09 01/18/21 06:09 Labs: Abnormal Lab Results - Last 24 Hours (Table) 01/17/21 01/18/21 01/18/21 Range/Units 16:31 06:09 06:09 WBC 14.7 H (3.8-10.6) k/uL Hgb 12.8 L (13.0-17.5) gm/dL Hct 38.6 L (39.0-53.0) % Neutrophils # 12.4 H (1.3-7.7) k/uL Lymphocytes # 0.4 L (1.0-4.8) k/uL BUN 29 H (9-20) mg/dL Glucose 113 H (74-99) mg/dL POC Glucose (mg/dL) 155 H (75-99) mg/dL AST 92 H (17-59) U/L ALT 67 H (4-49) U/L Alkaline Phosphatase 200 H (38-126) U/L Total Protein 5.7 L (6.3-8.2) g/dL Albumin 3.0 L (3.5-5.0) g/dL 01/18/21 01/18/21 Range/Units 07:25 11:33 WBC (3.8-10.6) k/uL Hgb (13.0-17.5) gm/dL Hct (39.0-53.0) % Neutrophils # (1.3-7.7) k/uL Lymphocytes # (1.0-4.8) k/uL BUN (9-20) mg/dL Glucose (74-99) mg/dL POC Glucose (mg/dL) 119 H 140 H (75-99) mg/dL AST (17-59) U/L ALT (4-49) U/L Alkaline Phosphatase (38-126) U/L Total Protein (6.3-8.2) g/dL Albumin (3.5-5.0) g/dL Microbiology - Last 24 Hours (Table) 01/16/21 11:16 Gram Stain - Final Sputum Sputum Culture - Final 01/15/21 15:40 Blood Culture - Preliminary Blood No Growth after 48 hours 01/15/21 15:41 Blood Culture - Preliminary Blood No Growth after 48 hours Assessment and Plan Assessment: Acute hypoxemic respiratory failure Acute on chronic systolic congestive heart failure Lymphangitic carcinomatosis -Oxygen when necessary -Lasix 20 mg IV daily -Echo demonstrates reduced ejection fraction, 45-50% with elevated RVSP (mild) -DuoNeb's every 6 hours -Pulmonary following, appreciate Rx Metastatic esophageal cancer GERD -Oncology following -GI following -Plans for PEG tube placement on Wednesday/Wednesday -MediPort placement as an outpatient -PPI twice a day -Morphine/Tylenol when necessary for pain -CHOP/pured Dysphasia diet with sips of water between -Speech therapy, patient recs -Senokot twice a day CAD Hyperlipidemia Hypertension -Holding home aspirin, atorvastatin -Continue home metoprolol DVT prophylaxis with Lovenox daily Patient has opted for palliative approach, we'll readdress CODE STATUS in the morning, presently full code
--- NOTE | 2021-01-18 14:03 | P.CONS ---
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 The patient was hospitalized due to increased dyspnea and epigastric pain. The patient's oncologic history began when he was hospitalized just 2 weeks prior in early December. The patient was found to have abdominal pain, and a CT scan of the abdomen and pelvis on January 02 revealed several hypodense liver lesions with enlarged retroperitoneal adenopathy and distal esophageal thickening. This was concerning for primary esophageal cancer with liver metastasis. He subsequently underwent an upper endoscopy on January 04 which revealed a circumferential mass from 34-39 cm which is ulcerative with mild narrowing of the lumen. Biopsy revealed high-grade in differentiated carcinoma, HER-2 negative. The patient was subs equently discharged, with plans to follow-up with oncology as an outpatient. Unfortunately he was hospitalized again this past week secondary to increasing dyspnea and abdominal pain. The patient underwent a CTA of the chest on January 15 which revealed diffuse pulmonary lesions worrisome for lymphangitic spread versus less likely atypical pneumonia. He had bilateral mediastinal and hilar adenopathy as well as the already noted distal esophageal thickening. Gastrohepatic adenopathy measuring up to 4 cm. The patient reports that at the current time he is still able to swallow some soft foods. He was able to drink a boost the other day, and has eaten some fruit. He states however that if he tries to drink water faster than one sip at a time he tends to have to regurgitate. He reports that during/after eating he has epigastric discomfort that radiates under the right rib cage. This pain can be up to 7-8 out of 10, and he gets partial relief from Tylenol. He is now quite dyspneic with exertion, and is requiring 4 L of oxygen. He did not require any O2 during his previous admission. Review of Systems Constitutional: Denies chills, Denies fever Eyes: denies blurred vision Ears: deny: decreased hearing Ears, nose, mouth and throat: Denies headache Cardiovascular: Reports dyspnea on exertion, Reports shortness of breath, Denies chest pain Respiratory: Reports cough, Reports dyspnea, Denies hemoptysis Gastrointestinal: Denies BRBPR, Denies change in bowel habits Genitourinary: Denies flank pain Integumentary: Denies rash Neurological: Denies aphasia, Denies confusion Psychiatric: Denies confusion Past Medical History Past Medical History: Cancer, Myocardial Infarction ([place]) Additional Past Medical History / Comment(s): Lower GI bleed/elias's esophagus with cautery, ulcerative colitis, hypotension, occasional lower back pain, nephrolithiasis/surgically removed. Last Myocardial Infarction Date:: 1997 History of Any Multi-Drug Resistant Organisms: None Reported Past Surgical History: Back Surgery, Coronary Bypass/CABG, Heart Catheterizat ion, Heart Catheterization With Stent Additional Past Surgical History / Comment(s): 1997 CABG 4 vessel, PCI with stent 2019, EGD and cauterized Elias's esophagus bleed, colonoscoy, lithotripsy, L leg varicose vein surgery, 2 lower back fusions Past Anesthesia/Blood Transfusion Reactions: No Reported Reaction Additional Past Anesthesia/Blood Transfusion Reaction / Comm: Pt has received blood in past without reaction. Date of Last Stent Placement:: 2018 Past Psychological History: No Psychological Hx Reported Smoking Status: Former smoker Past Alcohol Use History: None Reported Past Drug Use History: None Reported - Past Family History Father Additional Family Medical History / Comment(s): Father by drowning when pt was 3 yrs old. Mother Family Medical History: Cancer Additional Family Medical History / Comment(s): Mother lived into her 90s. Type of cancer was "female". Medications and Allergies Home Medications Medication Instructions Recorded Confirmed Type Aspirin EC [Ecotrin Low Dose] 81 mg PO DAILY 01/02/21 01/15/21 History Atorvastatin Calcium [Lipitor] 80 mg PO HS 01/02/21 01/15/21 History Ferrous Sulfate [Iron (65 MG 325 mg PO DAILY 01/02/21 01/15/21 History Elemental)] Metoprolol Tartrate [Lopressor] 12.5 mg PO BID 01/02/21 01/15/21 History Multivitamins, Thera [Multivitamin 1 tab PO DAILY 01/02/21 01/15/21 History (formulary)] Pantoprazole Sodium [Protonix] 40 mg PO BID@1000,2200 01/02/21 01/15/21 History Allergies Allergy/AdvReac Type Severity Reaction Status Date / Time No Known Allergies Allergy Verified 01/15/21 14:15 Physical Exam Vitals: Vital Signs Temp Pulse Pulse Resp BP BP Pulse Ox 01/18/21 11:21 100 01/18/21 11:10 92 01/18/21 10:43 90 L 01/18/21 07:47 97.5 F L 109 H 25 H 156/83 95 01/18/21 07:35 104 H 01/18/21 07:24 108 H 01/18/21 07:18 106 H 24 156/83 92 L 01/18/21 01:50 97.5 F L 84 18 120/52 92 L 01/17/21 20:45 90 01/17/21 20:36 92 01/17/21 20:00 18 01/17/21 16:26 96 01/17/21 16:15 98 01/17/21 14:00 97.9 F 95 16 121/60 92 L Intake and Output 01/17/21 01/18/21 01/18/21 22:59 06:59 14:59 Intake Total 450 Output Total 880 Balance 450 -880 Intake: Oral 450 Output: Urine 880 Other: Voiding Method Toilet Urinal Urinal # Voids 2 1 - Constitutional General appearance: mild distress - EENT Eyes: EOMI, PERRLA ENT: hearing grossly normal - Neck Neck: no lymphadenopathy - Respiratory Respiratory: bilateral: diminished - Cardiovascular Rhythm: regular - Gastrointestinal General gastrointestinal: no distended, tenderness (epigastric area tender to palpation) - Integumentary Integumentary: no calor, no cellulitis - Neurologic Neurologic: CNII-XII intact - Musculoskeletal Musculoskeletal: generalized weakness - Psychiatric Psychiatric: A&O x's 3, appropriate affect Results CBC & Chem 7: 01/18/21 06:09 01/18/21 06:09 Labs: Abnormal Lab Results - Last 24 Hours (Table) 01/17/21 01/18/21 01/18/21 Range/Units 16:31 06:09 06:09 WBC 14.7 H (3.8-10.6) k/uL Hgb 12.8 L (13.0-17.5) gm/dL Hct 38.6 L (39.0-53.0) % Neutrophils # 12.4 H (1.3-7.7) k/uL Lymphocytes # 0.4 L (1.0-4.8) k/uL BUN 29 H (9-20) mg/dL Glucose 113 H (74-99) mg/dL POC Glucose (mg/dL) 155 H (75-99) mg/dL AST 92 H (17-59) U/L ALT 67 H (4-49) U/L Alkaline Phosphatase 200 H (38-126) U/L Total Protein 5.7 L (6.3-8.2) g/dL Albumin 3.0 L (3.5-5.0) g/dL 01/18/21 01/18/21 Range/Units 07:25 11:33 WBC (3.8-10.6) k/uL Hgb (13.0-17.5) gm/dL Hct (39.0-53.0) % Neutrophils # (1.3-7.7) k/uL Lymphocytes # (1.0-4.8) k/uL BUN (9-20) mg/dL Glucose (74-99) mg/dL POC Glucose (mg/dL) 119 H 140 H (75-99) mg/dL AST (17-59) U/L ALT (4-49) U/L Alkaline Phosphatase (38-126) U/L Total Protein (6.3-8.2) g/dL Albumin (3.5-5.0) g/dL Microbiology - Last 24 Hours (Table) 01/16/21 11:16 Gram Stain - Final Sputum Sputum Culture - Final 01/15/21 15:40 Blood Culture - Preliminary Blood No Growth after 48 hours 01/15/21 15:41 Blood Culture - Preliminary Blood No Growth after [address] scan - abdomen: report reviewed, image reviewed CT scan - chest: report reviewed, image reviewed CT scan - pelvis: report reviewed, image reviewed Assessment and Plan Assessment: The patient is an 80-year-old male with a history of a recently diagnosed 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 The patient was hospitalized due to increased dyspnea and epigastric pain. Plan: 1. Epigastric pain: This could be secondary to the patient's malignancy within the esophagus, or possibly related to his upper abdominal adenopathy. I discussed with the patient that a short course of palliative radiotherapy may be beneficial to help with the pain. This could potentially also provide some improvement in his dysphasia. However, I discussed with the patient that radiotherapy may sometimes cause odynophagia temporarily. Because of this it w ould still make sense for him to get a PEG tube placed if possible to ensure adequate nutrition. 2. Metastatic poorly differentiated carcinoma of the esophagus: This appears to be a very rapidly progressing malignancy. There has been interval increase in the size of multiple hepatic lesions compared to the patient's prior study only 2 weeks previously. The patient understands that any treatment is palliative in nature. The plan is to start chemotherapy following port placement, which will be targeted for Wednesday. If the patient does not improve somewhat clinically with supportive care, then comfort care would be appropriate. I will plan to reevaluate the patient Wednesday. Time: I spent 45 minutes with this patient, of which greater than 50% of that time was spent counseling, coordinating care, and reviewing the risks, benefits, and all potential complications of radiation. Time with Patient: Greater than 30
[2021-01-18 16:31] LABS: Glucose,Whole Blood 138 mg/dL (75-99)
[2021-01-18] MEDS: ACETAMINOPHEN TAB 325 MG TAB PO PRN ×2 (18:41→18:42)
[2021-01-18] MEDS: SODIUM CHLORIDE 0.9% 250 ML IV SCH (23:15)
[2021-01-19] MEDS: MORPHINE SULFATE 2 MG/ML SYRINGE IVP PRN ×3 (02:48→20:23)
[2021-01-19] MEDS: SODIUM CHLORIDE 0.9% 250 ML IV SCH ×10 (04:00→05:46)
[2021-01-19] MEDS: MULTIVITAMINS, THERA 1 EACH TAB PO SCH (07:18)
[2021-01-19] MEDS: METOPROLOL TARTRATE 12.5 MG TAB PO SCH ×2 (07:18→20:23)
[2021-01-19] MEDS: ENOXAPARIN 40 MG/0.4 ML SYRINGE SQ SCH (07:19)
[2021-01-19] MEDS: FUROSEMIDE 10 MG/ML 2 ML VIAL IV SCH (07:19)
[2021-01-19] MEDS: PANTOPRAZOLE 40 MG/10 ML VIAL IVP SCH ×2 (07:19→20:22)
[2021-01-19] MEDS: SENNOSIDES 8.6 MG TAB PO SCH ×2 (07:19→20:23)
[2021-01-19] MEDS: IPRATROPIUM-ALBUTEROL 3 ML NEB INHALATION SCH ×4 (07:46→21:57)
--- NOTE | 2021-01-19 08:02 | XR ---
EXAMINATION TYPE: XR chest 2V DATE OF EXAM: 01/19/2021 COMPARISON: Chest x-ray from yesterday and older studies HISTORY: Shortness of breath TECHNIQUE: Frontal and lateral views of the chest are obtained. FINDINGS: Overlying sternal wires and mediastinal clips redemonstrated. Cardiac silhouette size stab le and upper limits of normal. Persistent small left pleural effusion. Bilateral reticulonodular fair ly confluent opacities redemonstrated. Degenerative change bilateral glenohumeral joints. Bilateral h ilar prominence corresponding to underlying adenopathy noted. Underlying emphysematous change is rede monstrated. IMPRESSION: Cardiomegaly with small left greater than right pleural effusions consistent with CHF exa cerbation . Chronic emphysematous change with bilateral reticulonodular opacities and hilar adenopath y could reflect product of neoplasm and/or atypical infection. Correlate clinically. No significant c hange from one day earlier.
[2021-01-19 08:52] LABS: ALT 73 U/L (4-49); AST 98 U/L (17-59); African American GFR (CKD) 88 (>60 ml/min/1.73 sqM); Albumin 3.4 g/dL (3.5-5.0); Albumin/Globulin Ratio 1.3; Alkaline Phosphatase 247 U/L (38-126); Anion Gap 5 mmol/L; Blood Urea Nitrogen 39 mg/dL (9-20); Calcium 11.1 mg/dL (8.4-10.2); Carbon Dioxide 32 mmol/L (22-30); Chloride 100 mmol/L (98-107); Globulin 2.6 g/dL; Glucose 134 mg/dL (74-99); Non-African American GFR(CKD) 76 (>60 ml/min/1.73 sqM); Potassium 4.1 mmol/L (3.5-5.1); Sodium 137 mmol/L (137-145); Total Bilirubin 0.9 mg/dL (0.2-1.3)
[2021-01-19 08:54] LABS: Basophils # (A) 0.1 k/uL (0-0.2); Basophils % (A) 1 %; Eosinophils # (A) 0.7 k/uL (0-0.7); Eosinophils % (A) 4 %; HCT 41.8 % (39.0-53.0); Lymphocytes # (A) 0.5 k/uL (1.0-4.8); Lymphocytes % (A) 3 %; MCH 29.9 pg (25.0-35.0); MCHC 33.5 g/dL (31.0-37.0); MCV 89.1 fL (80.0-100.0); Mean Platelet Volume 8.2; Monocytes # (A) 0.9 k/uL (0-1.0); Monocytes % (A) 5 %; Neutrophils # (A) 14.5 k/uL (1.3-7.7); Neutrophils % (A) 86 %; Platelet Count 236 k/uL (150-450); RDW 13.6 % (11.5-15.5); WBC 16.8 k/uL (3.8-10.6)
--- NOTE | 2021-01-19 09:14 | P.PN ---
Subjective Progress Note Date: 01/19/21 No new complaints at this time, resting comfortably. Objective - Vital Signs Vital signs: Vital Signs Temp 98.2 F 01/19/21 07:33 Pulse 100 01/19/21 07:55 Resp 18 01/19/21 07:33 BP 129/57 01/19/21 07:33 Pulse Ox 92 L 01/19/21 07:33 Intake & Output 01/18/21 01/19/21 01/19/21 18:59 06:59 18:59 Intake Total 480 Output Total 880 Balance -880 480 Intake: Intake, IV Titration 330 Amount Sodium Chloride 0.9% 1, 80 000 ml @ 75 mls/hr IV . [id number] [facility] Rx#:[id number] Sodium Chloride 0.9% 250 250 ml @ 999 mls/hr IV .Q16M [facility] Rx#:[id number] Oral 150 Output: Urine 880 Other: Voiding Method Urinal Urinal Urinal # Voids 3 - Exam Gen: Asleep, resting comfortably HEENT: normocephalic, atraumatic, good hearing acuity, moist mucous membranes Resp: Mild distress from dyspnea, cannot speak in full sentences, mild use of accessory muscles, bilateral posterior crackles CVS: good distal perfusion x 4, regular rate and rhythm without murmurs GI: Tender palpation in the epigastrium, bloated, soft : no SPT, no CVAT, brewer catheter is present MSK: no pitting edema, no clubbing Neuro: non-focal, moving all extremities - Labs CBC & Chem 7: 01/19/21 00:04 01/19/21 08:30 Labs: Abnormal Lab Results - Last 24 Hours (Table) 01/18/21 01/18/21 01/18/21 Range/Units 11:33 16:30 21:39 WBC (3.8-10.6) k/uL Neutrophils # (1.3-7.7) k/uL Lymphocytes # (1.0-4.8) k/uL Carbon Dioxide (22-30) mmol/L BUN (9-20) mg/dL Glucose (74-99) mg/dL POC Glucose (mg/dL) 140 H 138 H (75-99) mg/dL Plasma Lactic Acid Mateo 3.6 H* (0.7-2.0) mmol/L Calcium (8.4-10.2) mg/dL AST (17-59) U/L ALT (4-49) U/L Alkaline Phosphatase (38-126) U/L Total Protein (6.3-8.2) g/dL Albumin (3.5-5.0) g/dL 01/19/21 01/19/21 01/19/21 Range/Units 00:04 01:05 05:02 WBC 16.8 H (3.8-10.6) k/uL Neutrophils # 14.5 H (1.3-7.7) k/uL Lymphocytes # 0.5 L (1.0-4.8) k/uL Carbon Dioxide (22-30) mmol/L BUN (9-20) mg/dL Glucose (74-99) mg/dL POC Glucose (mg/dL) (75-99) mg/dL Plasma Lactic Acid Mateo 3.2 H* 2.6 H* (0.7-2.0) mmol/L Calcium (8.4-10.2) mg/dL AST (17-59) U/L ALT (4-49) U/L Alkaline Phosphatase (38-126) U/L Total Protein (6.3-8.2) g/dL Albumin (3.5-5.0) g/dL 01/19/21 01/19/21 Range/Units 08:30 08:30 WBC (3.8-10.6) k/uL Neutrophils # (1.3-7.7) k/uL Lymphocytes # (1.0-4.8) k/uL Carbon Dioxide 32 H (22-30) mmol/L BUN 39 H (9-20) mg/dL Glucose 134 H (74-99) mg/dL POC Glucose (mg/dL) (75-99) mg/dL Plasma Lactic Acid Mateo 3.0 H* (0.7-2.0) mmol/L Calcium 11.1 H (8.4-10.2) mg/dL AST 98 H (17-59) U/L ALT 73 H (4-49) U/L Alkaline Phosphatase 247 H (38-126) U/L Total Protein 6.0 L (6.3-8.2) g/dL Albumin 3.4 L (3.5-5.0) g/dL Microbiology - Last 24 Hours (Table) 01/15/21 15:40 Blood Culture - Preliminary Blood No Growth after 72 hours 01/15/21 15:41 Blood Culture - Preliminary Blood No Growth after 72 hours 01/16/21 11:16 Gram Stain - Final Sputum Sputum Culture - Final Assessment and Plan Assessment: Acute hypoxemic respiratory failure Acute on chronic systolic congestive heart failure Lymphangitic carcinomatosis -Oxygen when necessary -Lasix 20 mg IV daily -Echo demonstrates reduced ejection fraction, 45-50% with elevated RVSP (mild) -DuoNeb's every 6 hours -Pulmonary following, appreciate recs Metastatic esophageal cancer GERD -Oncology following -GI following -Plans for PEG tube placement on Wednesday/Wednesday -MediPort placement as an outpatient -PPI twice a day -Morphine/Tylenol when necessary for pain -CHOP/pured Dysphasia diet with sips of water between -Speech therapy, patient recs -Senokot twice a day CAD Hyperlipidemia Hypertension -Holding home aspirin, atorvastatin -Continue home metoprolol DVT prophylaxis with Lovenox daily Patient has opted for palliative approach, we'll readdress CODE STATUS in the morning, presently full code
--- NOTE | 2021-01-19 14:03 | P.PN ---
Subjective Progress Note Date: 01/19/21 Principal diagnosis: Acute hypoxic respiratory failure secondary to metastatic esophageal cancer 80-year-old male, recently diagnosed with esophageal cancer. The patient apparently was diagnosed by one of the gastroenterologists. The patient apparently also was determined to have metastatic esophageal cancer, and lung metastases, and liver metastases. Apparently, the patient did see one of the oncologist today. The plan is to get radiation therapy to a liver lesion to re duce pain, and the potentially go onto chemotherapy. I was asked to see the patient for shortness of breath. The patient denies any chest pain or pressure. Denies any fever or chills. No cough. No phlegm production. Was a heavy smoker for a number of years. 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 The patient denies a prior history of any lung disease. The patient does have a history of previous myocardial infarction, Perez's esophagus, chronic gastroesophageal reflux disease, GI bleed, ulcerative coliti s, kidney stones, previous bypass grafting, heart catheterization with stent, and back surgery. The patient is seen today 01/17/2021 in follow-up on the regular medical floor. He is currently resting in bed. He is still quite short of breath with minimal activity. He is up to 4 L by nasal cannula to maintain O2 saturation in the 90s. He has a loose nonproductive cough. Blood cultures reveal no growth. Sputum culture pending. White count 13.6. Hemoglobin 12.7. Sodium 139. Potassium 3.9. Creatinine 0.9. AST 78. ALT 77. The patient is seen today 01/18/2021 in follow-up on the regular medical floor. He is currently resting in bed. His oxygen requirements have gone up. Currentl y back on 5 L high flow nasal cannula. Chest x-ray shows cardiomegaly with small left greater than right pleural effusions consistent with CHF exacerbation or failure. Chronic emphysematous changes with bilateral reticulonodular opacities and hilar adenopathy could reflect neoplasm/atypical infection. He was given IV Lasix this morning. Blood culture reveals no growth. Sputum culture reveals no growth. White count 14.7. Hemoglobin 12.8. Sodium 137. Potassium 4.0. Creatinine 0.86. AST 92. ALT 67. He remains on Lovenox for DVT prophylaxis. The patient is seen today 01/19/2021 in follow-up on the regular medical floor. He is now requiring 7 L high flow nasal cannula to maintain O2 saturations in the 90s. Chest x-ray reveals cardiomegaly with small left greater than right pleural effusions consistent with CHF exacerbation. There are chronic emphysematous changes with bilateral reticulonodular opacities and hilar adenopathy most likely reflective of neoplasm. He remains quite fatigued and dyspneic with minimal exertion. He is afebrile. Hemodynamically stable. Blood cultures reveal no growth. Sputum culture revealed no growth. Sodium 137. Potassium 4.1. Creatinine 0.95. Lactic acid 3.0. AST 98. ALT 73. He remains on IV diuretics. Bronchodilators. Lovenox for DVT prophylaxis. Objective - Vital Signs Vital signs: Vital Signs Temp 98.4 F 01/19/21 13:41 Pulse 97 01/19/21 13:41 Resp 20 01/19/21 13:41 BP 110/58 01/19/21 13:41 Pulse Ox 94 L 01/19/21 13:41 Intake & Output 01/18/21 01/19/21 01/19/21 18:59 06:59 18:59 Intake Total 480 Output Total 880 Balance -880 480 Intake: Intake, IV Titration 330 Amount Sodium Chloride 0.9% 1, 80 000 ml @ 75 mls/hr IV . [id number] [facility] Rx#:[id number] Sodium Chloride 0.9% 250 250 ml @ 999 mls/hr IV .Q16M [facility] Rx#:[id number] Oral 150 Output: Urine 880 Other: Voiding Method Urinal Urinal Urinal # Voids 3 - Exam GENERAL EXAM: Alert, pleasant frail, weak 80-year-old gentleman, on 7 L nasal cannula, in mild respiratory distress. HEAD: Normocephalic. EYES: Normal reaction of pupils, equal size. NOSE: Clear with pink turbinates. THROAT: No erythema or exudates. NECK: No masses, no JVD. CHEST: No chest wall deformity. LUNGS: Equal air entry with coarse rhonchi bilaterally. CVS: S1 and S2 normal with no audible murmur, regular rhythm. ABDOMEN: No hepatosplenomegaly, normal bowel sounds, no guarding or rigidity. SPINE: No scoliosis or deformity SKIN: No rashes CENTRAL NERVOUS SYSTEM: No focal deficits, tone is normal in all 4 extremities. EXTREMITIES: There is no peripheral edema. No clubbing, no cyanosis. Peripheral pulses are intact. - Labs CBC & Chem 7: 01/19/21 00:04 01/19/21 08:30 Labs: Abnormal Lab Results - Last 24 Hours (Table) 01/18/21 01/18/21 01/19/21 Range/Units 16:30 21:39 00:04 WBC 16.8 H (3.8-10.6) k/uL Neutrophils # 14.5 H (1.3-7.7) k/uL Lymphocytes # 0.5 L (1.0-4.8) k/uL Carbon Dioxide (22-30) mmol/L BUN (9-20) mg/dL Glucose (74-99) mg/dL POC Glucose (mg/dL) 138 H (75-99) mg/dL Plasma Lactic Acid Mateo 3.6 H* (0.7-2.0) mmol/L Calcium (8.4-10.2) mg/dL AST (17-59) U/L ALT (4-49) U/L Alkaline Phosphatase (38-126) U/L Total Protein (6.3-8.2) g/dL Albumin (3.5-5.0) g/dL 01/19/21 01/19/21 01/19/21 Range/Units 01:05 05:02 08:30 WBC (3.8-10.6) k/uL Neutrophils # (1.3-7.7) k/uL Lymphocytes # (1.0-4.8) k/uL Carbon Dioxide (22-30) mmol/L BUN (9-20) mg/dL Glucose (74-99) mg/dL POC Glucose (mg/dL) (75-99) mg/dL Plasma Lactic Acid Mateo 3.2 H* 2.6 H* 3.0 H* (0.7-2.0) mmol/L Calcium (8.4-10.2) mg/dL AST (17-59) U/L ALT (4-49) U/L Alkaline Phosphatase (38-126) U/L Total Protein (6.3-8.2) g/dL Albumin (3.5-5.0) g/dL 01/19/21 Range/Units 08:30 WBC (3.8-10.6) k/uL Neutrophils # (1.3-7.7) k/uL Lymphocytes # (1.0-4.8) k/uL Carbon Dioxide 32 H (22-30) mmol/L BUN 39 H (9-20) mg/dL Glucose 134 H (74-99) mg/dL POC Glucose (mg/dL) (75-99) mg/dL Plasma Lactic Acid Mateo (0.7-2.0) mmol/L Calcium 11.1 H (8.4-10.2) mg/dL AST 98 H (17-59) U/L ALT 73 H (4-49) U/L Alkaline Phosphatase 247 H (38-126) U/L Total Protein 6.0 L (6.3-8.2) g/dL Albumin 3.4 L (3.5-5.0) g/dL Microbiology - Last 24 Hours (Table) 01/15/21 15:40 Blood Culture - Preliminary Blood No Growth after 72 hours 01/15/21 15:41 Blood Culture - Preliminary Blood No Growth after 72 hours 01/16/21 11:16 Gram Stain - Final Sputum Sputum Culture - Final Assessment and Plan Assessment: 1 Diffusely metastatic esophageal cancer, recently diagnosed, with liver and lung metastasis. 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 3 Prior history of tobacco use, with possible underlying COPD. 4 Dysphagia secondary to esophageal tumor 5 Acute exacerbation of systolic congestive heart failure 6 History of CAD with previous coronary artery bypass grafting, stent placement. 7 History of Perez's esophagus. 8 Chronic acid reflux disease. 9 History of ulcerative colitis. 10 History of GI bleed. 11 History of kidney stones. Plan: The patient was seen and evaluated by Dr. Santiago Chest x-ray reviewed Continued on diuretics Titrate the FiO2 as tolerated Mediport to be placed, PEG tube to be placed May need esophageal stent placement at tertiary center if worsening dysphagia Overall prognosis is quite guarded and poor CODE STATUS to be addressed We will continue to follow I, the cosigning physician, performed a history & physical examination of the patient. Lungs sounds with bilateral coarse rhonchi. Maintaining O2 saturations in the 90s on 7 L/m per nasal cannula. I discussed the assessment and plan of care with my nurse practitioner, Opal Mohr. I attest to the above note as dictated by her.
[2021-01-19] MEDS: LACTULOSE 20 GM/30 ML CUP PO SCH ×2 (14:42→20:22)
--- NOTE | 2021-01-19 17:34 | P.PN ---
Subjective Progress Note Date: 01/19/21 Principal diagnosis: Metastatic adenocarcinoma of the esophagus 80-year-old male lying in bed with no acute complaints. he reports he is feeling a bit better. No nausea or vomiting reported. No other acute events reported. Objective - Vital Signs Vital signs: Vital Signs Temp 98.2 F 01/19/21 07:33 Pulse 100 01/19/21 07:55 Resp 18 01/19/21 07:33 BP 129/57 01/19/21 07:33 Pulse Ox 92 L 01/19/21 07:33 Intake & Output 01/18/21 01/19/21 01/19/21 18:59 06:59 18:59 Intake Total 480 Output Total 880 Balance -880 480 Intake: Intake, IV Titration 330 Amount Sodium Chloride 0.9% 1, 80 000 ml @ 75 mls/hr IV . [id number] [facility] Rx#:[id number] Sodium Chloride 0.9% 250 250 ml @ 999 mls/hr IV .Q16M [facility] Rx#:[id number] Oral 150 Output: Urine 880 Other: Voiding Method Urinal Urinal Urinal # Voids 3 - Exam On physical examination, patient appears comfortable in no apparent distress. HEAD: Normocephalic, atraumatic. EYES: No scleral icterus. No conjunctival injection. MOUTH: No lesions, tongue midline. NECK: Trachea midline, no gross abnormalities. ABDOMEN: Soft, nontender to palpation. Bowel sounds are positive. No organomegaly. No guarding or rigidity. EXTREMITIES: No pedal edema. SKIN: No rashes, no jaundice. NEUROLOGIC: Alert and oriented x3. No focal deficits. - Labs CBC & Chem 7: 01/19/21 00:04 01/19/21 08:30 Labs: Abnormal Lab Results - Last 24 Hours (Table) 01/18/21 01/18/21 01/18/21 Range/Units 11:33 16:30 21:39 WBC (3.8-10.6) k/uL Neutrophils # (1.3-7.7) k/uL Lymphocytes # (1.0-4.8) k/uL Carbon Dioxide (22-30) mmol/L BUN (9-20) mg/dL Glucose (74-99) mg/dL POC Glucose (mg/dL) 140 H 138 H (75-99) mg/dL Plasma Lactic Acid Mateo 3.6 H* (0.7-2.0) mmol/L Calcium (8.4-10.2) mg/dL AST (17-59) U/L ALT (4-49) U/L Alkaline Phosphatase (38-126) U/L Total Protein (6.3-8.2) g/dL Albumin (3.5-5.0) g/dL 01/19/21 01/19/21 01/19/21 Range/Units 00:04 01:05 05:02 WBC 16.8 H (3.8-10.6) k/uL Neutrophils # 14.5 H (1.3-7.7) k/uL Lymphocytes # 0.5 L (1.0-4.8) k/uL Carbon Dioxide (22-30) mmol/L BUN (9-20) mg/dL Glucose (74-99) mg/dL POC Glucose (mg/dL) (75-99) mg/dL Plasma Lactic Acid Mateo 3.2 H* 2.6 H* (0.7-2.0) mmol/L Calcium (8.4-10.2) mg/dL AST (17-59) U/L ALT (4-49) U/L Alkaline Phosphatase (38-126) U/L Total Protein (6.3-8.2) g/dL Albumin (3.5-5.0) g/dL 01/19/21 01/19/21 Range/Units 08:30 08:30 WBC (3.8-10.6) k/uL Neutrophils # (1.3-7.7) k/uL Lymphocytes # (1.0-4.8) k/uL Carbon Dioxide 32 H (22-30) mmol/L BUN 39 H (9-20) mg/dL Glucose 134 H (74-99) mg/dL POC Glucose (mg/dL) (75-99) mg/dL Plasma Lactic Acid Mateo 3.0 H* (0.7-2.0) mmol/L Calcium 11.1 H (8.4-10.2) mg/dL AST 98 H (17-59) U/L ALT 73 H (4-49) U/L Alkaline Phosphatase 247 H (38-126) U/L Total Protein 6.0 L (6.3-8.2) g/dL Albumin 3.4 L (3.5-5.0) g/dL Microbiology - Last 24 Hours (Table) 01/15/21 15:40 Blood Culture - Preliminary Blood No Growth after 72 hours 01/15/21 15:41 Blood Culture - Preliminary Blood No Growth after 72 hours 01/16/21 11:16 Gram Stain - Final Sputum Sputum Culture - Final Assessment and Plan (1) 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 Patient recently had EGD on 01/04/21 with findings of distal esophageal mass with luminal narrowing able to be traversed with the endoscope with biopsies consistent with adenocarcinoma subsequently found to have suggestion of metastatic disease to the liver and lungs. Currently patient is tolerating some oral intake. Plan is for PEG tube placement as well as Mediport placement. Current Visit: Yes Status: Acute Code(s): C15.9 - MALIGNANT NEOPLASM OF ESOPHAGUS, UNSPECIFIED; C78.00 - SECONDARY MALIGNANT NEOPLASM OF UNSPECIFIED LUNG SNOMED Code(s): 164134810 (2) Esophageal neoplasm Current Visit: No Status: Acute Code(s): D49.0 - NEOPLASM OF UNSPECIFIED BEHAVIOR OF DIGESTIVE SYSTEM SNOMED Code(s): 822109895 (3) Liver metastases Current Visit: No Status: Acute Code(s): C78.7 - SECONDARY MALIG NEOPLASM OF LIVER AND INTRAHEPATIC BILE DUCT SNOMED Code(s): 27197794 Plan: Supportive care Okay for modified chopped or pured diet as tolerated with extensive discussion with the patient regarding small bites, sitting upright while eating, not lying down after eating, and sips of liquid in between bites of solid food Agree with plan for Mediport placement and PEG tube, to be scheduled with the surgical service Continue other management of adenocarcinoma as per oncology recommendations If progressive dysphagia occurs would recommend referral to tertiary center for evaluation of stent placement Continue other medical management per primary team Thank you for allowing us to participate in the care of the patient
--- NOTE | 2021-01-19 17:54 | P.PN ---
Subjective Progress Note Date: 01/19/21 Principal diagnosis: Metastatic Esophageal Cancer Maintaining oxygen at 6L supplemental, no new complaints today. Plan for mediport and possible peg tube with Dr. Pat Wednesday or Wednesday. Honorio and at bedside Objective - Vital Signs Vital signs: Vital Signs Temp 98.2 F 01/19/21 07:33 Pulse 96 01/19/21 11:14 Resp 18 01/19/21 07:33 BP 129/57 01/19/21 07:33 Pulse Ox 92 L 01/19/21 07:33 Intake & Output 01/18/21 01/19/21 01/19/21 18:59 06:59 18:59 Intake Total 480 Output Total 880 Balance -880 480 Intake: Intake, IV Titration 330 Amount Sodium Chloride 0.9% 1, 80 000 ml @ 75 mls/hr IV . [id number] [facility] Rx#:[id number] Sodium Chloride 0.9% 250 250 ml @ 999 mls/hr IV .Q16M [facility] Rx#:[id number] Oral 150 Output: Urine 880 Other: Voiding Method Urinal Urinal Urinal # Voids 3 - Exam - Constitutional General appearance: cooperative, mild distress - EENT Eyes: EOMI ENT: hard of hearing, NA/AT - Neck Neck: normal ROM - Respiratory Respiratory: bilateral: diminished, rhonchi - Cardiovascular Rhythm: regular - Gastrointestinal General gastrointestinal: soft, tenderness - Integumentary Integumentary: pale - Neurologic Neurologic: CNII-XII intact - Musculoskeletal Musculoskeletal: generalized weakness, strength equal bilaterally - Psychiatric Psychiatric: A&O x's 3, appropriate affect, intact judgment & insight - Labs CBC & Chem 7: 01/19/21 00:04 01/19/21 08:30 Labs: Abnormal Lab Results - Last 24 Hours (Table) 01/18/21 01/18/21 01/19/21 Range/Units 16:30 21:39 00:04 WBC 16.8 H (3.8-10.6) k/uL Neutrophils # 14.5 H (1.3-7.7) k/uL Lymphocytes # 0.5 L (1.0-4.8) k/uL Carbon Dioxide (22-30) mmol/L BUN (9-20) mg/dL Glucose (74-99) mg/dL POC Glucose (mg/dL) 138 H (75-99) mg/dL Plasma Lactic Acid Mateo 3.6 H* (0.7-2.0) mmol/L Calcium (8.4-10.2) mg/dL AST (17-59) U/L ALT (4-49) U/L Alkaline Phosphatase (38-126) U/L Total Protein (6.3-8.2) g/dL Albumin (3.5-5.0) g/dL 01/19/21 01/19/21 01/19/21 Range/Units 01:05 05:02 08:30 WBC (3.8-10.6) k/uL Neutrophils # (1.3-7.7) k/uL Lymphocytes # (1.0-4.8) k/uL Carbon Dioxide (22-30) mmol/L BUN (9-20) mg/dL Glucose (74-99) mg/dL POC Glucose (mg/dL) (75-99) mg/dL Plasma Lactic Acid Mateo 3.2 H* 2.6 H* 3.0 H* (0.7-2.0) mmol/L Calcium (8.4-10.2) mg/dL AST (17-59) U/L ALT (4-49) U/L Alkaline Phosphatase (38-126) U/L Total Protein (6.3-8.2) g/dL Albumin (3.5-5.0) g/dL 01/19/21 Range/Units 08:30 WBC (3.8-10.6) k/uL Neutrophils # (1.3-7.7) k/uL Lymphocytes # (1.0-4.8) k/uL Carbon Dioxide 32 H (22-30) mmol/L BUN 39 H (9-20) mg/dL Glucose 134 H (74-99) mg/dL POC Glucose (mg/dL) (75-99) mg/dL Plasma Lactic Acid Mateo (0.7-2.0) mmol/L Calcium 11.1 H (8.4-10.2) mg/dL AST 98 H (17-59) U/L ALT 73 H (4-49) U/L Alkaline Phosphatase 247 H (38-126) U/L Total Protein 6.0 L (6.3-8.2) g/dL Albumin 3.4 L (3.5-5.0) g/dL Microbiology - Last 24 Hours (Table) 01/15/21 15:40 Blood Culture - Preliminary Blood No Growth after 72 hours 01/15/21 15:41 Blood Culture - Preliminary Blood No Growth after 72 hours 01/16/21 11:16 Gram Stain - Final Sputum Sputum Culture - Final Assessment and Plan (1) 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 They would like to move forward with palliative treatment plan, they understand treatment expectations and intent is not curative, but to reduce symptoms and in hopes to prolong life by control of disease. Consult has been placed for gen surgery for port placement - GI to assess need of esophageal stent and/or PEG (likely both and performed together) - Radiation Oncology with Dr. Mancilla for radiation therapy prior and possibly concurrent - May need to send to Dr. Fitch - [facility] for Esophageal Stent and Peg PLacement (Discussed with Dr. Fitch and will expedite appointment after discharge) We reviewed CT chest bilateral metastatic disease in lungs Discussed with GI, Surgery, and Primary teams PLAN: - Plan to proceed with mediport and pEG Wednesday or Wednesday - COntinue supportive care, closely monitoring oxygen status and for s/s fluid overload
[2021-01-20] MEDS: MORPHINE SULFATE 2 MG/ML SYRINGE IVP PRN ×3 (01:45→08:28)
[2021-01-20] MEDS: SENNOSIDES 8.6 MG TAB PO SCH ×2 (07:05→21:11)
[2021-01-20] MEDS: METOPROLOL TARTRATE 12.5 MG TAB PO SCH ×2 (07:05→21:10)
[2021-01-20] MEDS: MULTIVITAMINS, THERA 1 EACH TAB PO SCH (07:05)
[2021-01-20] MEDS: LACTULOSE 20 GM/30 ML CUP PO SCH ×2 (07:06→21:10)
[2021-01-20] MEDS: PANTOPRAZOLE 40 MG/10 ML VIAL IVP SCH ×2 (07:06→21:10)
[2021-01-20] MEDS: FUROSEMIDE 10 MG/ML 2 ML VIAL IV SCH (07:08)
[2021-01-20] MEDS: ENOXAPARIN 40 MG/0.4 ML SYRINGE SQ SCH (07:08)
[2021-01-20] MEDS: IPRATROPIUM-ALBUTEROL 3 ML NEB INHALATION SCH ×4 (08:13→19:30)
[2021-01-20] MEDS ORDERED: NALOXONE 0.4 MG/ML 1 ML VIAL IV PRN (08:29)
[2021-01-20] MEDS ORDERED: HYDROmorphone PCA 10 MG/50 ML BAG IV PRN (08:29)
[2021-01-20] MEDS ORDERED: FUROSEMIDE 10 MG/ML 10 ML VIAL IV STA (08:31)
[2021-01-20 09:06] LABS: Basophils # (A) 0.05 X 10*3/uL (0.00-0.10); Basophils % (A) 0.3 %; Eosinophils # (A) 0.32 X 10*3/uL (0.04-0.35); Eosinophils % (A) 1.9 %; HCT 41.3 % (39.6-50.0); HGB 13.2 g/dL (13.0-17.0); Lymphocytes % (A) 2.9 %; MCH 29.5 pg (27.0-32.0); MCV 92.2 fL (80.0-97.0); Mean Platelet Volume 11.6 fL (9.5-12.2); Monocytes # (A) 1.19 X 10*3/uL (0.20-1.00); Neutrophils # (A) 14.84 X 10*3/uL (1.80-7.70); Neutrophils % (A) 87.5 %; Platelet Count 231 X 10*3/uL (140-440); RBC 4.48 X 10*6/uL (4.40-5.60); RDW 13.8 % (11.5-14.5); WBC 16.97 X 10*3/uL (4.50-10.00)
[2021-01-20 09:25] LABS: Albumin 3.5 g/dL (3.80-4.90); Albumin/Globulin Ratio 1.52 (1.60-3.17); Calcium 11.7 mg/dL (8.7-10.3); Globulin 2.3 g/dL (1.6-3.3); Non-African American GFR(CKD) 70.8 (60.0-200.0); Potassium 4.8 mmol/L (3.5-5.5); Total Bilirubin 0.8 mg/dL (0.2-1.2); Total Protein 5.8 g/dL (6.2-8.2)
--- NOTE | 2021-01-20 11:37 | P.PN ---
Subjective Progress Note Date: 01/20/21 Patient suctioned nation status appears to be worsening, he is quite dyspneic and uncomfortable. He also has significant pain in his back and his belly. See advance care plan note regarding code status which was discussed with family today. Objective - Vital Signs Vital signs: Vital Signs Temp 98 F 01/20/21 07:20 Pulse 108 H 01/20/21 08:33 Resp 22 01/20/21 07:20 BP 117/64 01/20/21 07:20 Pulse Ox 96 01/20/21 08:11 Intake & Output 01/19/21 01/20/21 01/20/21 18:59 06:59 18:59 Intake Total 100 Output Total 20 Balance 100 -20 Intake: Oral 100 Output: Stool 20 Other: Voiding Method Urinal Urinal Urinal # Voids 4 # Bowel Movements 1 - Exam Gen: Awake, in mild to moderate distress from dyspnea, pain HEENT: normocephalic, atraumatic, good hearing acuity, moist mucous membranes Resp: Mild distress from dyspnea, cannot speak in full sentences, mild use of accessory muscles, bilateral posterior crackles CVS: good distal perfusion x 4, regular rate and rhythm without murmurs GI: Tender palpation in the epigastrium, bloated, soft : no SPT, no CVAT, brewer catheter is present MSK: no pitting edema, no clubbing Neuro: non-focal, moving all extremities - Labs CBC & Chem 7: 01/20/21 05:26 01/20/21 05:26 Labs: Abnormal Lab Results - Last 24 Hours (Table) 01/19/21 01/19/21 01/20/21 Range/Units 16:32 23:24 05:26 WBC 16.97 H (4.50-10.00) X 10*3/uL Immature Gran # 0.07 H (0.00-0.04) X 10*3/uL Neutrophils # 14.84 H (1.80-7.70) X 10*3/uL Lymphocytes # 0.50 L (0.90-5.00) X 10*3/uL Monocytes # 1.19 H (0.20-1.00) X 10*3/uL BUN (9.0-27.0) mg/dL BUN/Creatinine Ratio (12.00-20.00) Ratio Glucose (70-110) mg/dL Plasma Lactic Acid Mateo 3.2 H* 3.3 H* (0.7-2.0) mmol/L Calcium (8.7-10.3) mg/dL AST (14-35) U/L ALT (10-49) U/L Alkaline Phosphatase (41-126) U/L Total Protein (6.2-8.2) g/dL Albumin (3.80-4.90) g/dL Albumin/Globulin Ratio (1.60-3.17) g/dL 01/20/21 01/20/21 Range/Units 05:26 05:26 WBC (4.50-10.00) X 10*3/uL Immature Gran # (0.00-0.04) X 10*3/uL Neutrophils # (1.80-7.70) X 10*3/uL Lymphocytes # (0.90-5.00) X 10*3/uL Monocytes # (0.20-1.00) X 10*3/uL BUN 44.0 H (9.0-27.0) mg/dL BUN/Creatinine Ratio 44.00 H (12.00-20.00) Ratio Glucose 127 H (70-110) mg/dL Plasma Lactic Acid Mateo 2.7 H* (0.7-2.0) mmol/L Calcium 11.7 H (8.7-10.3) mg/dL AST 87 H (14-35) U/L ALT 87 H (10-49) U/L Alkaline Phosphatase 296 H (41-126) U/L Total Protein 5.8 L (6.2-8.2) g/dL Albumin 3.50 L (3.80-4.90) g/dL Albumin/Globulin Ratio 1.52 L (1.60-3.17) g/dL Microbiology - Last 24 Hours (Table) 01/15/21 15:40 Blood Culture - Preliminary Blood No Growth after 96 hours 01/15/21 15:41 Blood Culture - Preliminary Blood No Growth after 96 hours Assessment and Plan Assessment: Acute hypoxemic respiratory failure Acute on chronic systolic congestive heart failure Lymphangitic carcinomatosis -Oxygen when necessary -Lasix 20 mg IV daily, give additional dose of 60 IV Lasix today with minimal urine output -Echo demonstrates reduced ejection fraction, 45-50% with elevated RVSP (mild) -DuoNeb's every 6 hours -Pulmonary following, appreciate recs Metastatic esophageal cancer GERD -Oncology following -GI following -Plans for PEG tube placement tomorrow, 01/20 -MediPort placement tomorrow, 01/20 -PPI twice a day -Morphine/Tylenol when necessary for pain -CHOP/pured Dysphasia diet with sips of water between -Speech therapy, patient recs -Senokot twice a day CAD Hyperlipidemia Hypertension -Holding home aspirin, atorvastatin -Continue home metoprolol DVT prophylaxis with Lovenox daily DO NOT RESUSCITATE/DO NOT INTUBATE
--- NOTE | 2021-01-20 11:43 | P.PN ---
Progress Note - Text Progress Note Date: 01/20/21 Advance care plan note I spoke with patient and his and daughter today regarding his clinical condition in light of the following conditions: 1. Acute hypoxemic respiratory failure 2. Lymphangitic carcinomatosis 3. Metastatic esophageal cancer Today, we had an opportunity to discuss the overall prognosis, and the goal of chemotherapy and radiation in the setting of aggressive metastatic esophageal cancer. I reviewed that the goal of any chemotherapy or radiation going forward would be and then sent to relieve symptoms with the goal of comfort in mind. In light of that, patient's clinical status and comfort has been deteriorating across the last 48 hours due to pain as well as hypoxia. Given his clinical worsening, we discussed patient's CODE STATUS which had up until this point been full code. We discussed that CPR and intubation in the setting of lost pulse with at best bring him back to the suffering of fighting and aggressive metastatic cancer. Therefore, I advised that patient would not be suitable to be resuscitated in the event that his heart stops. Patient and family expressed understanding of this sentiment, and agreed that this is not in line with patient's goals of care. Patient was therefore switched to DO NOT RESUSCITATE/DO NOT INTUBATE. Regarding his worsening clinical status, patient's family and patient are still praying that patient would be provided comfort via palliative radiation chemotherapy as was previously discussed between the radiation/oncology, surgical, GI, and pulmonary teams. They do recognize that given the aggressive nature of her the last 2 weeks of his cancer, every day as a new clinical picture. And they would be willing to discuss this moving forward, however, at this point they would still like to proceed with MediPort placement as well as PEG tube placement with the intent to start palliative radiation/chemotherapy. I spent 46 minutes of [id number] time discussing patient's wishes and goals moving forward
--- NOTE | 2021-01-20 13:07 | P.PN ---
Subjective Progress Note Date: 01/20/21 80-year-old male, recently diagnosed with esophageal cancer. The patient apparently was diagnosed by one of the gastroenterologists. The patient apparently also was determined to have metastatic esophageal cancer, and lung metastases, and liver metastases. Apparently, the patient did see one of the on cologist today. The plan is to get radiation therapy to a liver lesion to reduce pain, and the potentially go onto chemotherapy. I was asked to see the patient for shortness of breath. The patient denies any chest pain or pressure. Denies any fever or chills. No cough. No phlegm production. Was a heavy smoker for a number of years. 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 The patient denies a prior history of any lung disease. The patient does have a history of previous myocardial infarction, Perez's es ophagus, chronic gastroesophageal reflux disease, GI bleed, ulcerative colitis, kidney stones, previous bypass grafting, heart catheterization with stent, and back surgery. The patient is seen today 01/17/2021 in follow-up on the regular medical floor. He is currently resting in bed. He is still quite short of breath with minimal activity. He is up to 4 L by nasal cannula to maintain O2 saturation in the 90s. He has a loose nonproductive cough. Blood cultures reveal no growth. Sputum culture pending. White count 13.6. Hemoglobin 12.7. Sodium 139. Potassium 3.9. Creatinine 0.9. AST 78. ALT 77. The patient is seen today 01/18/2021 in follow-up on the regular medical floor. He is currently resting in bed. His oxygen requirements have gone up. Currently back on 5 L high flow nasal cannula. Chest x-ray shows cardiomegaly with small left greater than right pleural effusions consistent with CHF exacerbation or failure. Chronic emphysematous changes with bilateral reticulo nodular opacities and hilar adenopathy could reflect neoplasm/atypical infection. He was given IV Lasix this morning. Blood culture reveals no growth. Sputum culture reveals no growth. White count 14.7. Hemoglobin 12.8. Sodium 137. Potassium 4.0. Creatinine 0.86. AST 92. ALT 67. He remains on Lovenox for DVT prophylaxis. The patient is seen today 01/19/2021 in follow-up on the regular medical floor. He is now requiring 7 L high flow nasal cannula to maintain O2 saturations in the 90s. Chest x-ray reveals cardiomegaly with small left greater than right pleural effusions consistent with CHF exacerbation. There are chronic emphysematous changes with bilateral reticulonodular opacities and hilar adenopathy most likely reflective of neoplasm. He remains quite fatigued and dyspneic with minimal exertion. He is afebrile. Hemodynamically stable. Blood cultures reveal no growth. Sputum culture revealed no growth. Sodium 137. Potassium 4.1. Creatinine 0.95. Lactic acid 3.0. AST 98. ALT 73. He remains on IV diuretics. Bronchodilators. Lovenox for DVT prophylaxis. 01/20/2021 and seeing the patient for a follow-up. This is a case of diffuse metastatic esophageal cancer with possible nephrogenic . The patient is oxygen requirements of progressively got up and the patient is currently on oxygen with 100% nonrebreather facemask. He is short of breath. He is having back pain. He hasn't a CEREAL CHEMIST pump. He is breathing is very much labored and he gets short of breath even with limited amount of activity and even at rest. Mentally he is still alert. He has a client intubation mechanical ventilation and the patient is opting for a DNR/DNI CODE STATUS. The plan is to proceed with a port insertion today and a PEG tube insertion as recommended by oncology. The plan is to prepare this patient for systemic treatment. He continues to be on Lasix 20 mg IV every 24 hours. He remains on Lovenox for DVT prophylaxis. He is pro-calcitonin level was at 0.33 and the patient's white cell count at 16.9. His lactic acid level peaked at 3.6 is down to 2.7. His LFTs are abnormal consistent with hepatic metastases. Objective - Vital Signs Vital signs: Vital Signs Temp 98 F 01/20/21 07:20 Pulse 105 H 01/20/21 11:51 Resp 22 01/20/21 07:20 BP 117/64 01/20/21 07:20 Pulse Ox 96 01/20/21 08:11 Intake & Output 01/19/21 01/20/21 01/20/21 18:59 06:59 18:59 Intake Total 100 Output Total 20 Balance 100 -20 Intake: Oral 100 Output: Stool 20 Other: Voiding Method Urinal Urinal Urinal # Voids 4 # Bowel Movements 1 - Exam GENERAL EXAM: Alert, pleasant frail, weak 80-year-old gentleman, on 100% on a beta facemasks HEAD: Normocephalic. EYES: Normal reaction of pupils, equal size. NOSE: Clear with pink turbinates. THROAT: No erythema or exudates. NECK: No masses, no JVD. CHEST: No chest wall deformity. LUNGS: Equal air entry with coarse rhonchi bilaterally. CVS: S1 and S2 normal with no audible murmur, regular rhythm. ABDOMEN: No hepatosplenomegaly, normal bowel sounds, no guarding or rigidity. SPINE: No scoliosis or deformity SKIN: No rashes CENTRAL NERVOUS SYSTEM: No focal deficits, tone is normal in all 4 extremities. EXTREMITIES: There is no peripheral edema. No clubbing, no cyanosis. Peripheral pulses are intact. - Labs CBC & Chem 7: 01/20/21 05:26 01/20/21 05:26 Labs: Abnormal Lab Results - Last 24 Hours (Table) 01/19/21 01/19/21 01/20/21 Range/Units 16:32 23:24 05:26 WBC 16.97 H (4.50-10.00) X 10*3/uL Immature Gran # 0.07 H (0.00-0.04) X 10*3/uL Neutrophils # 14.84 H (1.80-7.70) X 10*3/uL Lymphocytes # 0.50 L (0.90-5.00) X 10*3/uL Monocytes # 1.19 H (0.20-1.00) X 10*3/uL BUN (9.0-27.0) mg/dL BUN/Creatinine Ratio (12.00-20.00) Ratio Glucose (70-110) mg/dL Plasma Lactic Acid Mateo 3.2 H* 3.3 H* (0.7-2.0) mmol/L Calcium (8.7-10.3) mg/dL AST (14-35) U/L ALT (10-49) U/L Alkaline Phosphatase (41-126) U/L Total Protein (6.2-8.2) g/dL Albumin (3.80-4.90) g/dL Albumin/Globulin Ratio (1.60-3.17) g/dL 01/20/21 01/20/21 Range/Units 05:26 05:26 WBC (4.50-10.00) X 10*3/uL Immature Gran # (0.00-0.04) X 10*3/uL Neutrophils # (1.80-7.70) X 10*3/uL Lymphocytes # (0.90-5.00) X 10*3/uL Monocytes # (0.20-1.00) X 10*3/uL BUN 44.0 H (9.0-27.0) mg/dL BUN/Creatinine Ratio 44.00 H (12.00-20.00) Ratio Glucose 127 H (70-110) mg/dL Plasma Lactic Acid Mateo 2.7 H* (0.7-2.0) mmol/L Calcium 11.7 H (8.7-10.3) mg/dL AST 87 H (14-35) U/L ALT 87 H (10-49) U/L Alkaline Phosphatase 296 H (41-126) U/L Total Protein 5.8 L (6.2-8.2) g/dL Albumin 3.50 L (3.80-4.90) g/dL Albumin/Globulin Ratio 1.52 L (1.60-3.17) g/dL Microbiology - Last 24 Hours (Table) 01/15/21 15:40 Blood Culture - Preliminary Blood No Growth after 96 hours 01/15/21 15:41 Blood Culture - Preliminary Blood No Growth after 96 hours Assessment and Plan Plan: 1 Diffusely metastatic esophageal cancer, recently diagnosed, with liver and lung metastasis. 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 The patient has developed progressive hypoxemia and currently is on 100% nonrebreather facemask. Pulmonary embolism is doubtful. Pneumonia is doubtful. Pro-calcitonin level is low. He remains on Lovenox 40 mg subcu for DVT prophylaxis. 3 Prior history of tobacco use, with possible underlying COPD. 4 Dysphagia secondary to esophageal tumor 5 Acute exacerbation of systolic congestive heart failure 6 History of CAD with previous coronary artery bypass grafting, stent placement. 7 History of Perez's esophagus. 8 Chronic acid reflux disease. 9 History of ulcerative colitis. 10 History of GI bleed. 11 History of kidney stones. Plan: Chest x-ray reviewed agree with a diagnosis of diffuse metastatic pulmonary involvement with esophageal cancer Insertion of a PEG tube today Insertion of a Mediport today Stop diuretics Titrate the FiO2 as tolerated May need esophageal stent placement at tertiary center if worsening dysphagia Overall prognosis is quite guarded and poor CODE STATUS to be addressed and based on today's conversation with the patient and his family, he does not want any intubation or mechanical ventilation. As such, I asked the family to proceed with a DNR/DNI CODE STATUS and put it in writing. He carries extremely poor prognosis. Very much likely that he will not tolerate any treatment for esophageal cancer. We'll continue to follow. We will continue to follow
--- NOTE | 2021-01-20 13:37 | P.PN ---
Subjective Progress Note Date: 01/20/21 Principal diagnosis: Metastatic Esophageal Cancer Patient is now on non-rebreather and appears weaker than over weekend. I spoke with the patient, grand-daughter, , and daughter Beth. I do not think he would be eligible for surgical procedure given the high risk with worsening respiratory status. Objective - Vital Signs Vital signs: Vital Signs Temp 98 F 01/20/21 07:20 Pulse 105 H 01/20/21 11:51 Resp 22 01/20/21 07:20 BP 117/64 01/20/21 07:20 Pulse Ox 96 01/20/21 08:11 Intake & Output 01/19/21 01/20/21 01/20/21 18:59 06:59 18:59 Intake Total 100 Output Total 20 Balance 100 -20 Intake: Oral 100 Output: Stool 20 Other: Voiding Method Urinal Urinal Urinal # Voids 4 # Bowel Movements 1 - Exam - Constitutional General appearance: cooperative, labored NRB - EENT Eyes: EOMI ENT: hard of hearing, NA/AT - Neck Neck: normal ROM - Respiratory Respiratory: bilateral: diminished, rhonchi, Increased effort - Cardiovascular Rhythm: regular - Gastrointestinal General gastrointestinal: soft, tenderness - Integumentary Integumentary: pale - Neurologic Neurologic: CNII-XII intact - Musculoskeletal Musculoskeletal: generalized weakness, strength equal bilaterally - Psychiatric Psychiatric: A&O x's 3, appropriate affect, intact judgment & insight - Labs CBC & Chem 7: 01/20/21 05:26 01/20/21 05:26 Labs: Abnormal Lab Results - Last 24 Hours (Table) 01/19/21 01/19/21 01/20/21 Range/Units 16:32 23:24 05:26 WBC 16.97 H (4.50-10.00) X 10*3/uL Immature Gran # 0.07 H (0.00-0.04) X 10*3/uL Neutrophils # 14.84 H (1.80-7.70) X 10*3/uL Lymphocytes # 0.50 L (0.90-5.00) X 10*3/uL Monocytes # 1.19 H (0.20-1.00) X 10*3/uL BUN (9.0-27.0) mg/dL BUN/Creatinine Ratio (12.00-20.00) Ratio Glucose (70-110) mg/dL Plasma Lactic Acid Mateo 3.2 H* 3.3 H* (0.7-2.0) mmol/L Calcium (8.7-10.3) mg/dL AST (14-35) U/L ALT (10-49) U/L Alkaline Phosphatase (41-126) U/L Total Protein (6.2-8.2) g/dL Albumin (3.80-4.90) g/dL Albumin/Globulin Ratio (1.60-3.17) g/dL 01/20/21 01/20/21 Range/Units 05:26 05:26 WBC (4.50-10.00) X 10*3/uL Immature Gran # (0.00-0.04) X 10*3/uL Neutrophils # (1.80-7.70) X 10*3/uL Lymphocytes # (0.90-5.00) X 10*3/uL Monocytes # (0.20-1.00) X 10*3/uL BUN 44.0 H (9.0-27.0) mg/dL BUN/Creatinine Ratio 44.00 H (12.00-20.00) Ratio Glucose 127 H (70-110) mg/dL Plasma Lactic Acid Mateo 2.7 H* (0.7-2.0) mmol/L Calcium 11.7 H (8.7-10.3) mg/dL AST 87 H (14-35) U/L ALT 87 H (10-49) U/L Alkaline Phosphatase 296 H (41-126) U/L Total Protein 5.8 L (6.2-8.2) g/dL Albumin 3.50 L (3.80-4.90) g/dL Albumin/Globulin Ratio 1.52 L (1.60-3.17) g/dL Microbiology - Last 24 Hours (Table) 01/15/21 15:40 Blood Culture - Preliminary Blood No Growth after 96 hours 01/15/21 15:41 Blood Culture - Preliminary Blood No Growth after 96 hours Assessment and Plan (1) 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 They would like to move forward with palliative treatment plan, they understand treatment expectations and intent is not curative, but to reduce symptoms and in hopes to prolong life by control of disease. Consult has been placed for gen surgery for port placement - GI to assess need of esophageal stent and/or PEG (likely both and performed together) - Radiation Oncology with Dr. Mancilla for radiation therapy prior and possibly concurrent - May need to send to Dr. Fitch - [facility] for Esophageal Stent and Peg PLacement (Discussed with Dr. Fitch and will expedite appointment after discharge) We reviewed CT chest bilateral metastatic disease in lungs Discussed with GI, Surgery, and Primary teams PLAN: - Plan was for mediport and pEG Wednesday, discussed with Dr. Pat. Concern of current and worsening respiratory status therefore feel if the respiratory is due to his progressive malignancy then treatment maybe needed to control and improve this. Will discuss further with Dr. Mcmahon and likely proceed with Picc line. - Continue supportive care, closely monitoring oxygen status and for s/s fluid overload - Severe Protein Malnutrition, Dieticien and possible need of alternative nutrition
[2021-01-20] MEDS: LIDOCAINE 5% PATCH TOPICAL SCH (16:42)
--- NOTE | 2021-01-20 17:08 | P.PN ---
Subjective Progress Note Date: 01/20/21 Patient seen and examined at bedside. Complains of some shortness of breath and is on nonrebreather mask. Pain appears to be well controlled with STONECUTTER pump along with lidocaine patches. Objective - Vital Signs Vital signs: Vital Signs Temp 98.1 F 01/20/21 13:40 Pulse 92 01/20/21 15:51 Resp 23 01/20/21 13:40 BP 112/70 01/20/21 13:40 Pulse Ox 95 01/20/21 13:40 Intake & Output 01/19/21 01/20/21 01/20/21 18:59 06:59 18:59 Intake Total 100 Output Total 20 Balance 100 -20 Intake: Oral 100 Output: Stool 20 Other: Voiding Method Urinal Urinal Urinal # Voids 4 # Bowel Movements 1 - Constitutional General appearance: Present: cooperative, no acute distress - Respiratory Details: Some shortness of breath, patient is on nonrebreather - Gastrointestinal Gastrointestinal Comment(s): Soft, nontender - Musculoskeletal Musculoskeletal: Present: generalized weakness - Psychiatric Psychiatric: Present: A&O x's 3 - Labs CBC & Chem 7: 01/20/21 05:26 01/20/21 05:26 Labs: Abnormal Lab Results - Last 24 Hours (Table) 01/19/21 01/20/21 01/20/21 Range/Units 23:24 05:26 05:26 WBC 16.97 H (4.50-10.00) X 10*3/uL Immature Gran # 0.07 H (0.00-0.04) X 10*3/uL Neutrophils # 14.84 H (1.80-7.70) X 10*3/uL Lymphocytes # 0.50 L (0.90-5.00) X 10*3/uL Monocytes # 1.19 H (0.20-1.00) X 10*3/uL BUN 44.0 H (9.0-27.0) mg/dL BUN/Creatinine Ratio 44.00 H (12.00-20.00) Ratio Glucose 127 H (70-110) mg/dL Plasma Lactic Acid Mateo 3.3 H* (0.7-2.0) mmol/L Calcium 11.7 H (8.7-10.3) mg/dL AST 87 H (14-35) U/L ALT 87 H (10-49) U/L Alkaline Phosphatase 296 H (41-126) U/L Total Protein 5.8 L (6.2-8.2) g/dL Albumin 3.50 L (3.80-4.90) g/dL Albumin/Globulin Ratio 1.52 L (1.60-3.17) g/dL 01/20/21 01/20/21 Range/Units 05:26 14:21 WBC (4.50-10.00) X 10*3/uL Immature Gran # (0.00-0.04) X 10*3/uL Neutrophils # (1.80-7.70) X 10*3/uL Lymphocytes # (0.90-5.00) X 10*3/uL Monocytes # (0.20-1.00) X 10*3/uL BUN (9.0-27.0) mg/dL BUN/Creatinine Ratio (12.00-20.00) Ratio Glucose (70-110) mg/dL Plasma Lactic Acid Mateo 2.7 H* 4.6 H* (0.7-2.0) mmol/L Calcium (8.7-10.3) mg/dL AST (14-35) U/L ALT (10-49) U/L Alkaline Phosphatase (41-126) U/L Total Protein (6.2-8.2) g/dL Albumin (3.80-4.90) g/dL Albumin/Globulin Ratio (1.60-3.17) g/dL Microbiology - Last 24 Hours (Table) 01/15/21 15:40 Blood Culture - Preliminary Blood No Growth after 96 hours 01/15/21 15:41 Blood Culture - Preliminary Blood No Growth after 96 hours Assessment and Plan Plan: 80-year-old male with metastatic esophageal cancer. After discussion with oncology team and GI, plan was initially for Mediport placement along with PEG tube placement. However, patient's respiratory status appears to be decompensating and he is not requiring nonrebreather mask. Secondary to this, a procedure requiring anesthesia, could lead to intubation of unknown length of time. This was discussed with the patient and the patient's family. At this point, we will avoid any surgical procedure due to the prolonged intubation risk. Based on the patient's palliative nature of care, it is reasonable to place a PICC line for palliative chemotherapy induction. Future Mediport placement and PEG placement can be based on patient's clinical progress. Case to be discussed with oncology. Plan for PICC line.
[2021-01-20] MEDS ORDERED: ALPRAZolam 0.25 MG TAB PO PRN (21:34)
[2021-01-20] MEDS ORDERED: LORazepam 2 MG/ML INJ IV PRN (21:42)
[2021-01-20] MEDS ORDERED: ONDANSETRON 4 MG/2 ML VIAL ONE (22:16)
[2021-01-20] MEDS ORDERED: ONDANSETRON 4 MG/2 ML VIAL IVP STA (22:18)
[2021-01-20 23:06] LABS: Basophils # (A) 0.1 k/uL (0-0.2); Basophils % (A) 0 %; Eosinophils # (A) 0.3 k/uL (0-0.7); Eosinophils % (A) 2 %; HCT 41.3 % (39.0-53.0); HGB 13.9 gm/dL (13.0-17.5); Lymphocytes # (A) 0.4 k/uL (1.0-4.8); Lymphocytes % (A) 2 %; MCH 30.1 pg (25.0-35.0); MCHC 33.6 g/dL (31.0-37.0); MCV 89.8 fL (80.0-100.0); Mean Platelet Volume 8.3; Monocytes # (A) 1.1 k/uL (0-1.0); Monocytes % (A) 6 %; Neutrophils # (A) 17.6 k/uL (1.3-7.7); Neutrophils % (A) 89 %; Platelet Count 243 k/uL (150-450); RDW 13.4 % (11.5-15.5); WBC 19.7 k/uL (3.8-10.6)
[2021-01-20 23:28] LABS: African American GFR (CKD) 72 (>60 ml/min/1.73 sqM); Anion Gap 10 mmol/L; Blood Urea Nitrogen 61 mg/dL (9-20); Calcium 12.5 mg/dL (8.4-10.2); Carbon Dioxide 29 mmol/L (22-30); Chloride 96 mmol/L (98-107); Glucose 171 mg/dL (74-99); Non-African American GFR(CKD) 62 (>60 ml/min/1.73 sqM); Potassium 4.5 mmol/L (3.5-5.1); Sodium 135 mmol/L (137-145)
[2021-01-20] MEDS ORDERED: OCTREOTIDE 100 MCG/ML INJ IVP ONE (23:55)
[2021-01-21] MEDS ORDERED: OCTREOTIDE 500 MCG in SODIUM CHLORIDE 0.9% 250 ML IV SCH ×2
--- NOTE | 2021-01-21 00:50 | P.EN ---
A team note Activated at 10:05 PM. Arrived at the scene shortly after. The patient was noted to have hematemesis. He had continuous vomiting up of bright red blood with one quarter of the basin full. The patient has an aggressive metastatic esophageal cancer. The patient is currently a no code. Discussed with the family including daughter and . THe family is contemplating hospice vs further palliative therapy. The case was discussed with Oncologist firestop/containment worker who recommended Ondansetron infusion on the medicine floor. The patient's vital signs at time of evaluation were BP 94/61, pulse 124, and SpO2 92% on 15 L via nasal cannula. the surgery service earlier today and recommended to hold off on further procedures in light of the patient's worsening respiratory status. The GI service was also notified by the RN. The family does not wish to pursue overly aggressive measures at this time. Repeat CBC ordered.
[2021-01-21] MEDS ORDERED: FUROSEMIDE 10 MG/ML 4 ML VIAL IV STA (05:25)
[2021-01-21] MEDS ORDERED: FUROSEMIDE 10 MG/ML 4 ML VIAL IV ONE (05:45)
[2021-01-21 06:41] LABS: Ionized Calcium 6.5 mg/dL (4.5-5.3)
[2021-01-21] MEDS: ENOXAPARIN 40 MG/0.4 ML SYRINGE SQ SCH (06:57)
[2021-01-21 07:00] LABS: ALT 84 U/L (4-49); AST 94 U/L (17-59); African American GFR (CKD) 55 (>60 ml/min/1.73 sqM); Albumin 3.6 g/dL (3.5-5.0); Albumin/Globulin Ratio 1.3; Alkaline Phosphatase 294 U/L (38-126); Anion Gap 12 mmol/L; Blood Urea Nitrogen 66 mg/dL (9-20); Calcium 12.6 mg/dL (8.4-10.2); Carbon Dioxide 29 mmol/L (22-30); Chloride 96 mmol/L (98-107); Globulin 2.7 g/dL; Glucose 151 mg/dL (74-99); Non-African American GFR(CKD) 48 (>60 ml/min/1.73 sqM); Potassium 4.9 mmol/L (3.5-5.1); Sodium 137 mmol/L (137-145); Total Bilirubin 0.8 mg/dL (0.2-1.3); Total Protein 6.3 g/dL (6.3-8.2)
[2021-01-21] MEDS: SENNOSIDES 8.6 MG TAB PO SCH (07:08)
[2021-01-21] MEDS: LACTULOSE 20 GM/30 ML CUP PO SCH (07:08)
[2021-01-21] MEDS: MULTIVITAMINS, THERA 1 EACH TAB PO SCH (07:08)
[2021-01-21] MEDS: METOPROLOL TARTRATE 12.5 MG TAB PO SCH (07:08)
[2021-01-21] MEDS: PANTOPRAZOLE 40 MG/10 ML VIAL IVP SCH (07:20)
[2021-01-21] MEDS: LIDOCAINE 5% PATCH TOPICAL SCH (07:21)
[2021-01-21 08:05] VITALS: BP 108/67; PULSE 122; RESP 26; TEMP 99.9
[2021-01-21] MEDS ORDERED: MORPHINE SULFATE 2 MG/ML SYRINGE IVP SCH (09:00)
[2021-01-21] MEDS: IPRATROPIUM-ALBUTEROL 3 ML NEB INHALATION SCH (09:18)
--- NOTE | 2021-01-21 09:29 | P.DS ---
Providers Date of admission: 01/15/21 16:17 Expected date of discharge: 01/21/21 Attending physician: Lillian Junior MD Consults: 01/15/21 16:17 Consult Physician Routine Consulting Provider: Anoop Mcmahon Consult Reason/Comments: Esophageal cancer Do you want consulting provider notified?: Yes 01/15/21 18:56 Consult Physician Routine Consulting Provider: Gayathri Tripathi Consult Reason/Comments: Shortness of breath, unclear etiology Do you want consulting provider notified?: Yes 01/16/21 16:29 Consult Physician Routine Consulting Provider: Kamaljit Pat Consult Reason/Comments: [place] Do you want consulting provider notified?: Yes 01/16/21 17:39 Consult Physician Routine Consulting Provider: George Wakefield Consult Reason/Comments: Metastatic Esophageal Treatment Do you want consulting provider notified?: Already Contacted Primary care physician: Pavan Thurston DO Hospital Course: Acute hypoxemic respiratory failure Acute on chronic systolic congestive heart failure Lymphangitic carcinomatosis Metastatic esophageal cancer GERD CAD Hyperlipidemia Hypertension Patient presented to the hospital with acute hypoxemic respiratory failure and was found to have worsening metastatic esophageal cancer with lymphangitic carcinomatosis. Patient was initially planned to have PEG tube a Mediport for palliative chemo radiation therapy, however, his clinical condition rapidly deteriorated. Goals of care discussion was had with the family, who understood poor prognosis in light of severe condition. Patient opted for comfort care as of 01/20 PM, and was provided Ativan and morphine for relief of symptoms. Patient this morning from complications of metastatic esophageal cancer. Assessment: Gen: Awake, in severe distress from dyspnea, pain HEENT: normocephalic, atraumatic, good hearing acuity, moist mucous membranes Resp: Severe distress from dyspnea, cannot speak in full sentences, use of accessory muscles, bilateral posterior crackles CVS: good distal perfusion x 4, regular rate and rhythm without murmurs GI: Tender palpation in the epigastrium, bloated, soft : no SPT, no CVAT, brewer catheter is present MSK: no pitting edema, no clubbing Neuro: non-focal, moving all extremities Plan - Discharge Summary Discharge Rx Participant: Yes New Discharge Prescriptions: Discontinued Aspirin EC [Ecotrin Low Dose] 81 mg PO DAILY Multivitamins, Thera [Multivitamin (formulary)] 1 tab PO DAILY Metoprolol Tartrate [Lopressor] 12.5 mg PO BID Ferrous Sulfate [Iron (65 MG Elemental)] 325 mg PO DAILY Pantoprazole Sodium [Protonix] 40 mg PO BID@1000,2200 Atorvastatin Calcium [Lipitor] 80 mg PO HS Follow up Appointment(s)/Referral(s): Opal Mohr NPC [Nurse Practitioner] - 1 Week Pavan Thurston DO [Primary Care Provider] - 1-2 days Discharge Disposition: - Preliminary Cause of Preliminary Cause of : Metastatic esophageal cancer
[2021-01-21] MEDS ORDERED: LORazepam 2 MG/ML INJ IV SCH (10:00)
[2021-01-21 10:23] LABS: Basophils # (A) 0.04 X 10*3/uL (0.00-0.10); Basophils % (A) 0.2 %; Eosinophils # (A) 0.13 X 10*3/uL (0.04-0.35); Eosinophils % (A) 0.7 %; HCT 43.7 % (39.6-50.0); HGB 13.9 g/dL (13.0-17.0); Lymphocytes # (A) 0.49 X 10*3/uL (0.90-5.00); Lymphocytes % (A) 2.8 %; MCH 29.5 pg (27.0-32.0); MCHC 31.8 g/dL (32.0-37.0); MCV 92.8 fL (80.0-97.0); Mean Platelet Volume 11.5 fL (9.5-12.2); Monocytes # (A) 1.35 X 10*3/uL (0.20-1.00); Monocytes % (A) 7.6 %; Neutrophils # (A) 15.62 X 10*3/uL (1.80-7.70); Neutrophils % (A) 88.2 %; Platelet Count 265 X 10*3/uL (140-440); RBC 4.71 X 10*6/uL (4.40-5.60); RDW 13.7 % (11.5-14.5); WBC 17.72 X 10*3/uL (4.50-10.00)
[2021-01-21] MEDS ORDERED: OCTREOTIDE 100 MCG/ML INJ IVP ONE (23:45)
--- NOTE | 2021-02-17 15:17 | CDI ---
Documentation Clarification Form Date: 02/17/2021 03:04:00 PM From: Nori Finley RN, CCDS Admit Date: 01/15/2021 04:17:00 PM Patient Name: Yousuf Underwood Visit Number: [id number] Discharge Date: 01/21/2021 08:34:00 AM ATTENTION: The Clinical Documentation Specialists (CDI) and [facility] Coding Staff appreciate your assistance in clarifying documentation. Please respond to the clarification below the line at the bottom and electronically sign. The CDI & [facility] Coding staff will review the response and follow-up if needed. Please note: Queries are made part of the Legal Health Record. If you have any questions, please contact the author of this message via ITS. Dr. Lillian Junior Conflicting documentation has been found in the medical record. As attending physician, please provide clarification. 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 -Leukocytosis reactive I do not believe patient has pneumonia may have bronchitis." 01/20 Pulmonary Progress Note: ' Pneumonia is doubtful." 01/20 Oncology Progress note: "Pneumonia" History/Risk Factors: Acute Hypoxemic Respiratory Failure, A/C Systolic CHF, Lymphangitic Carcimatosis, Metastatic esophageal CA, Gerd, CAD, Hyperlipidemia, HTN, CA, PA, CABG, Cath with Stent, Barrets esophagus, Back fusions Clinical Indicators: 01/15 1236 Admission V/S: Temp 97.7, HR 92, RR 24, B/P 146/78, Spo2 91% RA 01/15 CXR: Diffuse nodular interstitial infiltrates and trace effusions. Differential considerations include diffuse metastatic disease and atypical pneumonias. 01/15-01/21 Labs: WBC 16.6/12.9/13.6/14.7/16.8/19.7/17.72, Neutrophils 14.5/11.25/12.4/14.5/17.6/15.62, Lactic Acid 2.5/3.6/3.3/4.3/3.6 01/16 Procalcitonin 0.33 Treatment: 01/15 Zithromax 500 mg IVPB Q 24 hrs x 1 01/15 IV Ceftriaxone 2gm IVPB OT x 1 01/15- 01/22 IV Zosyn 3.3765 gm IVPB q 8 hrs. Please clarify if pneumonia has been ruled in or out. [ ] Pneumonia was present and treated [ ] Pneumonia had been ruled out [ ] Other (please specify) [ ] Unable to determine (Template Last Revised: October 2020) Superimposed Pneumonia was present and treated, remaining respiratory failure secondary to metastasis. MTDD
== END 2021-01-21 08:34 | disposition expired | DRG 840 ==
LOC: EC 12:31 → 4SSUR 16:17
PROVIDERS: ADMIT Internal Medicine; ATTEND Internal Medicine
DX: C77.1 Secondary and unspecified malignant neoplasm of intrathoracic lymph nodes (principal); J96.01 Acute respiratory failure with hypoxia; I50.23 Acute on chronic systolic (congestive) heart failure; E43 Unspecified severe protein-calorie malnutrition; J18.9 Pneumonia, unspecified organism; K51.90 Ulcerative colitis, unspecified, without complications; C15.5 Malignant neoplasm of lower third of esophagus; C78.00 Secondary malignant neoplasm of unspecified lung; C78.7 Secondary malignant neoplasm of liver and intrahepatic bile duct; K92.0 Hematemesis; I27.20 Pulmonary hypertension, unspecified; I95.9 Hypotension, unspecified; I11.0 Hypertensive heart disease with heart failure; J44.9 Chronic obstructive pulmonary disease, unspecified; Z66 Do not resuscitate; Z51.5 Encounter for palliative care; Z20.822 Contact with and (suspected) exposure to COVID-19; E78.5 Hyperlipidemia, unspecified; K22.70 Barrett's esophagus without dysplasia; I25.10 Atherosclerotic heart disease of native coronary artery without angina pectoris; I07.1 Rheumatic tricuspid insufficiency; K21.9 Gastro-esophageal reflux disease without esophagitis; K59.00 Constipation, unspecified; M54.9 Dorsalgia, unspecified; I83.92 Asymptomatic varicose veins of left lower extremity; H91.90 Unspecified hearing loss, unspecified ear; I25.2 Old myocardial infarction; Z68.25 Body mass index [BMI] 25.0-25.9, adult; Z79.82 Long term (current) use of aspirin; Z79.899 Other long term (current) drug therapy; Z87.442 Personal history of urinary calculi; Z95.1 Presence of aortocoronary bypass graft; Z95.5 Presence of coronary angioplasty implant and graft; Z87.891 Personal history of nicotine dependence; Z98.1 Arthrodesis status; Z87.19 Personal history of other diseases of the digestive system; Z98.890 Other specified postprocedural states; Z80.49 Family history of malignant neoplasm of other genital organs
CPT/HCPCS: 36415; 71045; 71046; 71275; 80048; 80053; 82330; 83605; 83735; 83880; 84145; 84484; 85025; 85027; 85379; 85610; 85730; 87040; 87070; 87205; 87635; 93005; 93306; 94640; 94760; 96361; 96374; 96375; 99285